=== PATIENT | male | born 1950 | race Caucasian/White ===

== ENCOUNTER 2019-12-25 09:24 | Outpatient (REF) | payer MEDICARE, SELFPAY ==
[2019-12-25 10:47] LABS: Cholesterol 150 mg/dL; HDL Cholesterol 57 mg/dL; LDL Cholesterol Calculated 79 mg/dl; Triglycerides 72 mg/dL
[2019-12-25 10:52] LABS: Alanine Aminotransferase 28 U/L (0-40); Albumin Level 4.1 g/dL (3.5-5.0); Alkaline Phosphatase 49 U/L (39-117); Aspartate Amino Transferase 29 U/L (5-37); Bilirubin Direct 0.3 mg/dL (0.0-0.5); Bilirubin Total 0.5 mg/dL (0.0-1.0); Total Protein 6.5 g/dL (6.5-8.0)
[2019-12-27 04:17] LABS: Ceruloplasmin 29 mg/dL (18-36)
[2019-12-28 23:36] LABS: Smooth Muscle Antibody <20 U (<20)
== END 2019-12-25 09:25 | disposition home or self-care (01) ==
LOC: HO.LAB 09:24
PROVIDERS: Absent Provider Internal Medicine; PCP Internal Medicine; Visit Provider Internal Medicine
DX: R94.5 Abnormal results of liver function studies (principal); I25.10 Atherosclerotic heart disease of native coronary artery without angina pectoris
CPT/HCPCS: 36415; 80061; 80076; 82390; 86255

== ENCOUNTER → 2020-01-02 10:26 | Outpatient (BNVA) | payer MEDICARE, SELFPAY | PROVIDERS: PCP Internal Medicine; Referring Provider Internal Medicine; Visit Provider Internal Medicine | DX: I71.4 Abdominal aortic aneurysm, without rupture (principal); I25.10 Atherosclerotic heart disease of native coronary artery without angina pectoris; I22.9 Subsequent ST elevation (STEMI) myocardial infarction of unspecified site; I10 Essential (primary) hypertension; E78.5 Hyperlipidemia, unspecified; R94.5 Abnormal results of liver function studies; Z95.1 Presence of aortocoronary bypass graft; Z98.890 Other specified postprocedural states; Z79.82 Long term (current) use of aspirin; Z79.899 Other long term (current) drug therapy | CPT/HCPCS: 99212 ==

== ENCOUNTER 2020-02-27 09:13 | Outpatient (REF) | payer MEDICARE, SELFPAY ==
[2020-02-27 10:49] LABS: Alanine Aminotransferase 87 U/L (0-40); Albumin Level 4.1 g/dL (3.5-5.0); Alkaline Phosphatase 50 U/L (39-117); Aspartate Amino Transferase 64 U/L (5-37); Bilirubin Direct 0.3 mg/dL (0.0-0.5); Bilirubin Total 0.6 mg/dL (0.0-1.0); Cholesterol 128 mg/dL; HDL Cholesterol 45 mg/dL; LDL Cholesterol Calculated 69 mg/dl; Total Protein 6.4 g/dL (6.5-8.0); Triglycerides 74 mg/dL
== END 2020-02-27 09:14 | disposition home or self-care (01) ==
LOC: HO.LAB 09:13
PROVIDERS: Absent Provider Internal Medicine; PCP Internal Medicine; Visit Provider Internal Medicine
DX: I25.10 Atherosclerotic heart disease of native coronary artery without angina pectoris (principal); R94.5 Abnormal results of liver function studies
CPT/HCPCS: 80061; 80076

== ENCOUNTER → 2020-03-04 10:23 | Outpatient (BNVA) | payer MEDICARE, SELFPAY | PROVIDERS: PCP Internal Medicine; Visit Provider Internal Medicine | DX: Z13.89 Encounter for screening for other disorder (principal) | CPT/HCPCS: Q3014 ==

== ENCOUNTER 2020-04-26 09:53 | Outpatient (REF) | payer MEDICARE, SELFPAY ==
[2020-04-26 10:50] LABS: Alanine Aminotransferase 21 U/L (0-40); Albumin Level 4.2 g/dL (3.5-5.0); Alkaline Phosphatase 46 U/L (39-117); Aspartate Amino Transferase 24 U/L (5-37); Bilirubin Direct 0.2 mg/dL (0.0-0.5); Bilirubin Total 0.6 mg/dL (0.0-1.0); Cholesterol 153 mg/dL; HDL Cholesterol 48 mg/dL; LDL Cholesterol Calculated 92 mg/dl; Total Protein 6.6 g/dL (6.5-8.0); Triglycerides 69 mg/dL
== END 2020-04-26 09:54 | disposition home or self-care (01) ==
LOC: HO.LAB 09:53
PROVIDERS: Absent Provider Internal Medicine; PCP Internal Medicine; Referring Provider Internal Medicine; Visit Provider Nurse Practitioner Family
DX: E78.5 Hyperlipidemia, unspecified (principal); I25.10 Atherosclerotic heart disease of native coronary artery without angina pectoris
CPT/HCPCS: 36415; 80061; 80076

== ENCOUNTER → 2020-05-06 09:54 | Outpatient (BNVA) | payer MEDICARE, SELFPAY | PROVIDERS: PCP Internal Medicine; Visit Provider Internal Medicine | DX: I25.10 Atherosclerotic heart disease of native coronary artery without angina pectoris (principal); I22.9 Subsequent ST elevation (STEMI) myocardial infarction of unspecified site; I10 Essential (primary) hypertension; E78.5 Hyperlipidemia, unspecified; I71.4 Abdominal aortic aneurysm, without rupture; R94.5 Abnormal results of liver function studies; Z95.1 Presence of aortocoronary bypass graft | CPT/HCPCS: 93005; 99212 ==

== ENCOUNTER 2020-10-17 10:04 | Outpatient (REF) | payer MEDICARE, SELFPAY ==
[2020-10-17 10:07] LABS: MANUAL DIFF FLAG NO
[2020-10-17 10:28] LABS: Basophils Percent Auto 0.7 % (0-2); Eosinophils Absolute Auto 0.2 X10*3/uL (0.0-0.4); Hematocrit 43.7 % (42-52); Hemoglobin 14.8 g/dl (14.0-18.0); Imm Gran Abs Auto 0.02 X10*3/uL (0.00-0.03); Imm Gran Pct Auto 0.4 % (0.0-0.4); Lymphocytes Absolute Auto 1.6 X10*3/uL (1.2-4.9); Lymphocytes Percent Auto 28.7 % (20-40); Mean Corpuscular HGB Conc 33.9 g/dl (31.0-36.0); Mean Corpuscular Hemoglobin 32.5 pg (27.0-33.0); Mean Corpuscular Volume 95.8 fL (80-98); Monocytes Absolute Auto 0.6 X10*3/uL (0.1-1.2); Monocytes Percent Auto 10.1 % (2-11); Neutrophils Absolute Auto 3.2 X10*3/uL (2.0-8.3); Neutrophils Percent Auto 57.1 % (45-73); Platelet Count 181 X10*3/uL (160-400); Red Blood Count 4.56 X10*6/uL (4.60-5.80); Red Cell Distribution Width 12.4 % (11.0-16.0); White Blood Count 5.7 X10*3/uL (4.8-10.8)
[2020-10-17 10:50] LABS: Glucose Urine UA NEG (NEG); Leukocyte Esterase Urine NEG (NEG); Nitrite Urine NEG (NEG); Urine Blood NEG (NEG); Urine Ketones NEG (NEG); Urine Protein NEG (NEG-TRACE)
[2020-10-17 10:53] LABS: Appearance Urine CLEAR; Color Urine YELLOW
[2020-10-17 11:20] LABS: Alanine Aminotransferase 19 U/L (0-40); Albumin Level 4.1 g/dL (3.5-5.0); Alkaline Phosphatase 45 U/L (39-117); Anion Gap 12 (12-20); Aspartate Amino Transferase 23 U/L (5-37); Bilirubin Total 0.5 mg/dL (0.0-1.0); Blood Urea Nitrogen 13 mg/dL (9-16); Calcium 9.2 mg/dL (8.4-10.2); Carbon Dioxide 26 mmol/L (22-29); Chloride 106 mmol/L (96-108); Cholesterol 140 mg/dL; Estimated Glomerular Filt Rate > 60; Glucose Fasting 93 mg/dL (60-99); HDL Cholesterol 49 mg/dL; LDL Cholesterol Calculated 81 mg/dl; Potassium 4.3 mmol/L (3.3-5.1); Sodium 140 mmol/L (135-145); Total Protein 6.4 g/dL (6.5-8.0); Triglycerides 54 mg/dL
[2020-10-17 11:24] LABS: Reflex LDLD? No
[2020-10-17 11:32] LABS: PSA,Total (Free>4and<10) 5.32 ng/mL (0.00-4.00)
[2020-10-18 11:27] LABS: Free Prostate Spec Ag 1.3 ng/mL; Percent Free Prostate Spec Ag 27 % (calc) (>25); Prostate Specific Ag Total 4.8 ng/mL (< OR = 4.0)
== END 2020-10-17 10:05 | disposition home or self-care (01) ==
LOC: HO.LNP 10:04
PROVIDERS: Visit Provider Internal Medicine
DX: E78.00 Pure hypercholesterolemia, unspecified (principal); I71.4 Abdominal aortic aneurysm, without rupture; I25.10 Atherosclerotic heart disease of native coronary artery without angina pectoris; I10 Essential (primary) hypertension; N40.0 Benign prostatic hyperplasia without lower urinary tract symptoms; Z12.5 Encounter for screening for malignant neoplasm of prostate
CPT/HCPCS: 80053; 80061; 81003; 84153; 84154; 85025

== ENCOUNTER → 2020-11-11 10:00 | Outpatient (BNVA) | payer MEDICARE, SELFPAY | PROVIDERS: PCP Internal Medicine; Referring Provider Internal Medicine; Visit Provider Internal Medicine | DX: E78.5 Hyperlipidemia, unspecified (principal); I10 Essential (primary) hypertension; I71.4 Abdominal aortic aneurysm, without rupture; R94.5 Abnormal results of liver function studies | CPT/HCPCS: 99212 ==

== ENCOUNTER 2020-12-05 10:57 | Outpatient (REF) | payer MEDICARE, SELFPAY | END 2020-12-05 10:58 | disposition home or self-care (01) | LOC: HO.LAB 10:57 | PROVIDERS: PCP Internal Medicine; Visit Provider Internal Medicine | DX: Z20.822 Contact with and (suspected) exposure to COVID-19 (principal) | CPT/HCPCS: C9803; U0003; U0005 ==

== ENCOUNTER 2020-12-11 10:16 | Outpatient (REF) | payer MEDICARE, SELFPAY | END 2020-12-11 10:17 | disposition home or self-care (01) | LOC: HO.LAB 10:16 | PROVIDERS: PCP Internal Medicine; Visit Provider Internal Medicine | DX: Z20.822 Contact with and (suspected) exposure to COVID-19 (principal) | CPT/HCPCS: C9803; U0003; U0005 ==

== ENCOUNTER 2021-04-24 11:01 | Outpatient (REF) | payer MEDICARE, SELFPAY ==
[2021-04-24 12:24] LABS: Alanine Aminotransferase 17 U/L (0-40); Albumin Level 3.8 g/dL (3.5-5.0); Alkaline Phosphatase 51 U/L (39-117); Aspartate Amino Transferase 19 U/L (5-37); Bilirubin Direct 0.3 mg/dL (0.0-0.5); Bilirubin Total 0.8 mg/dL (0.0-1.0); Cholesterol 143 mg/dL; HDL Cholesterol 48 mg/dL; LDL Cholesterol Calculated 83 mg/dl; Total Protein 6.2 g/dL (6.5-8.0); Triglycerides 60 mg/dL
[2021-04-24 12:56] LABS: Reflex LDLD? No
== END 2021-04-24 11:02 | disposition home or self-care (01) ==
LOC: HO.LNP 11:01
PROVIDERS: PCP Internal Medicine; Visit Provider Internal Medicine
DX: E78.00 Pure hypercholesterolemia, unspecified (principal)
CPT/HCPCS: 80061; 80076

== ENCOUNTER → 2021-05-19 08:20 | Outpatient (BNVA) | payer MEDICARE, SELFPAY | PROVIDERS: PCP Internal Medicine; Referring Provider Internal Medicine; Visit Provider Internal Medicine | DX: I25.10 Atherosclerotic heart disease of native coronary artery without angina pectoris (principal); I71.4 Abdominal aortic aneurysm, without rupture; I35.0 Nonrheumatic aortic (valve) stenosis; I10 Essential (primary) hypertension; R94.5 Abnormal results of liver function studies; E78.5 Hyperlipidemia, unspecified | CPT/HCPCS: 93005; 99212 ==

== ENCOUNTER → 2021-06-26 09:26 | Outpatient (REF) | payer MEDICARE, SELFPAY ==
--- NOTE | 2021-06-26 09:29 | CA_ITS ---
Transthoracic Echocardiogram Patient (Last, First, Middle): Mario Deng W Gender: Male Date of : 1950 Age: 70 Procedure Date: 06/26/2021 Procedure Type: Transthoracic Echocardiogram Location: OP Height: 167.64 cm Weight: 74.39 kg BSA: 1.84 m2 Heart Rate: bpm BP: 134 / 78 mmHg [place] Department Manager: LEIDY Referring MD: Kurt Wright MD Symptoms: I25.10 - Atherosclerotic heart disease of [place] coronary... Study Quality: Fair ECG Rhythm: Sinus Conclusions: - The left ventricular systolic function is normal. The calculated ejection fraction is 61% by biplane method. - There is moderate calcification of the aortic valve. There is no aortic valve stenosis. Findings Left Ventricle Normal left ventricular cavity size. There is mildly increased left ventricular wall thickness. The left ventricular systolic function is normal. The calculated ejection fraction is 61% by biplane method. Diastolic function is normal for age. Possible mild hypokinesis in the basal inferior wall. Right Ventricle Normal right ventricular cavity size and systolic function. Atria Both atria are normal in size. Aortic Valve There is moderate calcification of the aortic valve. There is no aortic valve stenosis. The mean gradient is 5 mmHg. The aortic valve area is 2.34 cm2. There is no aortic valve regurgitation. Mitral Valve The mitral valve appears normal. There is trace mitral valve regurgitation. There is no mitral valve stenosis. Pulmonic Valve The pulmonic valve was not well visualized. Tricuspid Valve There is mild tricuspid valve regurgitation. The pulmonary artery systolic pressure is normal. Great Vessels The asc aorta and aortic arch are normal in size. Venous The inferior vena cava is normal in size and collapses greater than 50% with inspiration. Pericardium/Pleural There is no evidence of pericardial effusion. Prior Study Comparison No significant change compared to prior study dated: 09/29/2019. Measurements 2D Linear Measurements IVSd: 1.23 0.6-0.9/0.6-1.0 cm LVIDd: 4.11 3.9-5.3/4.2-5.9 cm LVIDd Index: 2.23 2.4-3.2/2.2-3.1 cm/m2 LVIDs: 2.75 2.0-3.6 cm LVPWd: 1.01 0.7-1.1 cm LA Diam: 3.60 2.7-3.8/3.0-4.0 cm LAIDs Index: 1.96 1.5-2.3 cm/m2 LV Mass: 194.09 67-162/88-224 g LV Mass Index: 105.48 43-95/49-115 g/m2 LVOT Diam: 2.00 3.0+(-)1.3 cm 2D Systolic Function EF 4C: 59.90 >55% EF 2C: 61.30 >55% EF BiP: 60.70 >55% Mitral Valve MV Pk E: 0.72 MV PK A: 0.68 MV Decel Time: 177.00 E/A: 1.10 E'Lateral: 10.00 E'Medial: 6.09 E/E' Med: 11.90 E/E' Lat: 7.20 PHT: 52.00 MVA PHT: 4.23 Decel Terry: 4.08 Aortic Valve AoV Pk [place]: 1.69 AoV Mn [place]: 1.04 AoV VTI: 0.37 AoV Pk Grad: 11.00 Aov Mn Grad: 5.00 DEONNA Cont.VTI: 2.34 LVOT LVOT Pk [place]: 1.29 LVOT Mn [place]akan: 0.75 LVOT VTI: 0.28 LVOT Pk Grad: 7.00 LVOT Mn Grad: 3.00 LVOT Diam: 2.00 LVOT Area: 3.14 Diastolic Function MV Pk E: 0.72 MV Pk A: 0.68 E/A: 1.10 E'Medial: 6.09 E/E' Med: 11.90 E' Laterial: 10.00 E/E' Lat: 7.20 Right Ventricle TAPSE (mm): 22.60 TVS' Hakan: 11.30 Tricuspid Valve TR Pk [place]akan: 2.21 TR Pk Grad: 20.00 RA Press: 3.00 RVSP: 23.00 Great Vessels Aorta Sinus of Valsalva: 3.04 2.0-3.[address] [place]: 2.41 1.7-3.4 cm Ao Asc: 3.50 2.1-3.4 cm Ao Arch: 3.00 Updated in Other Vendor System with Status of Final Kurt Wright MD electronically signed on 06/27/2021 4:16:49 PM with status of Final
== END ==
LOC: HO.CARD 09:26
PROVIDERS: PCP Internal Medicine; Visit Provider Internal Medicine
DX: I25.10 Atherosclerotic heart disease of native coronary artery without angina pectoris (principal); I35.0 Nonrheumatic aortic (valve) stenosis
CPT/HCPCS: 93306

== ENCOUNTER 2021-09-08 13:51 | Outpatient (REF) | payer MEDICARE, SELFPAY ==
--- NOTE | ~2021-09-08 | XR_ITS ---
EXAMINATION: 1. RIGHT ANKLE. 2. RIGHT FOOT. CLINICAL INFORMATION: Pain in foot and ankle. COMPARISON: None TECHNIQUE: 1. Right ankle. 3 views 2. Right foot. 3 views FINDINGS: 1. Right ankle. No fracture. No dislocation. Ankle mortise is congruent. Small surgical clips in the soft tissues of the distal leg the medial side of the metadiaphysis of the tibia. 2. Right foot. Severe degenerative arthropathy of the first metatarsal phalangeal joint. There is joint narrowing, [id number] contact with irregularity the articular surface of bone and large marginal bone spurs at both the metatarsal and the proximal phalange. Mild joint narrowing of the first and second metatarsal tarsal joint. No acute abnormality. XR/XR ankle RT min 3V IMPRESSION: 1. Right ankle. Normal right ankle. 2. Right foot. Degenerative arthropathy of the first and second toe. No acute abnormality.
--- NOTE | ~2021-09-08 | XR_ITS ---
EXAMINATION: 1. RIGHT ANKLE. 2. RIGHT FOOT. CLINICAL INFORMATION: Pain in foot and ankle. COMPARISON: None TECHNIQUE: 1. Right ankle. 3 views 2. Right foot. 3 views FINDINGS: 1. Right ankle. No fracture. No dislocation. Ankle mortise is congruent. Small surgical clips in the soft tissues of the distal leg the medial side of the metadiaphysis of the tibia. 2. Right foot. Severe degenerative arthropathy of the first metatarsal phalangeal joint. There is joint narrowing, [id number] contact with irregularity the articular surface of bone and large marginal bone spurs at both the metatarsal and the proximal phalange. Mild joint narrowing of the first and second metatarsal tarsal joint. No acute abnormality. XR/XR foot RT min 3V IMPRESSION: 1. Right ankle. Normal right ankle. 2. Right foot. Degenerative arthropathy of the first and second toe. No acute abnormality.
== END 2021-09-08 13:52 | disposition home or self-care (01) ==
LOC: HO.XRAY 13:51
PROVIDERS: PCP Internal Medicine; Visit Provider Internal Medicine
DX: R29.91 Unspecified symptoms and signs involving the musculoskeletal system (principal); M25.571 Pain in right ankle and joints of right foot; M79.671 Pain in right foot
CPT/HCPCS: 73610; 73630

== ENCOUNTER 2021-10-23 10:49 | Outpatient (REF) | payer MEDICARE, SELFPAY ==
[2021-10-23 10:52] LABS: MANUAL DIFF FLAG NO
[2021-10-23 11:09] LABS: Basophils Percent Auto 0.5 % (0-2); Eosinophils Absolute Auto 0.2 X10*3/uL (0.0-0.4); Eosinophils Percent Auto 2.7 % (0-4); Hematocrit 43.8 % (42.0-52.0); Hemoglobin 14.9 g/dl (14.0-18.0); Imm Gran Abs Auto 0.03 X10*3/uL (0.00-0.03); Imm Gran Pct Auto 0.5 % (0.0-0.4); Lymphocytes Absolute Auto 1.8 X10*3/uL (1.2-4.9); Lymphocytes Percent Auto 29.8 % (20-40); Mean Corpuscular Hemoglobin 32.3 pg (27.0-33.0); Mean Corpuscular Volume 94.8 fL (80.0-98.0); Mean Platelet Volume 10.6 fL (9.4-12.4); Monocytes Absolute Auto 0.6 X10*3/uL (0.1-1.2); Monocytes Percent Auto 9.8 % (2-11); Neutrophils Absolute Auto 3.4 x10*3/uL (2.0-8.3); Neutrophils Percent Auto 56.7 % (45-73); Platelet Count 216 X10*3/uL (160-400); Red Blood Count 4.62 X10*6/uL (4.60-5.80); Red Cell Distribution Width 12.7 % (11.0-16.0); White Blood Count 5.9 X10*3/uL (4.8-10.8)
[2021-10-23 11:26] LABS: Alanine Aminotransferase 21 U/L (0-40); Alkaline Phosphatase 52 U/L (39-117); Anion Gap 14 (12-20); Aspartate Amino Transferase 22 U/L (5-37); Bilirubin Total 0.8 mg/dL (0.0-1.0); Blood Urea Nitrogen 13 mg/dL (9-16); Calcium 8.8 mg/dL (8.4-10.2); Carbon Dioxide 25 mmol/L (22-29); Chloride 105 mmol/L (96-108); Cholesterol 147 mg/dL; Estimated Glomerular Filt Rate > 60; Glucose Fasting 113 mg/dL (60-99); HDL Cholesterol 53 mg/dL; LDL Cholesterol Calculated 83 mg/dl; Potassium 3.9 mmol/L (3.3-5.1); Sodium 140 mmol/L (135-145); Total Protein 6.4 g/dL (6.5-8.0); Triglycerides 59 mg/dL
[2021-10-23 11:34] LABS: Appearance Urine Clear; Color Urine Yellow; Glucose Urine UA Negative (Negative); Leukocyte Esterase Urine Negative (Negative); Nitrite Urine Negative (Negative); PH 6.5 (5.0-8.0); Urine Blood Negative (Negative); Urine Ketones Negative (Negative); Urine Protein Negative (Neg-Trace)
[2021-10-23 11:40] LABS: PSA,Total (Free>4and<10) 3.59 ng/mL (0.00-4.00)
[2021-10-23 11:42] LABS: Bacteria Urine None Seen (None Seen); Hyaline Casts Urine 0-2 /LPF (0-2); RBC Urine 0-2 /HPF (0-2); Squamous Epithelial Cell Urine 0-2 /HPF (0-2); WBC Urine 0-5 /HPF (0-5)
== END 2021-10-23 10:50 | disposition home or self-care (01) ==
LOC: HO.LNP 10:49
PROVIDERS: Visit Provider Internal Medicine
DX: Z12.5 Encounter for screening for malignant neoplasm of prostate (principal); E78.00 Pure hypercholesterolemia, unspecified; I10 Essential (primary) hypertension; N40.0 Benign prostatic hyperplasia without lower urinary tract symptoms
CPT/HCPCS: 80053; 80061; 81001; 84153; 85025

== ENCOUNTER → 2021-11-10 08:25 | Outpatient (BNVA) | payer MEDICARE, SELFPAY | PROVIDERS: PCP Internal Medicine; Referring Provider Internal Medicine; Visit Provider Internal Medicine | DX: I25.10 Atherosclerotic heart disease of native coronary artery without angina pectoris (principal); I35.8 Other nonrheumatic aortic valve disorders; I10 Essential (primary) hypertension; E78.5 Hyperlipidemia, unspecified; I71.4 Abdominal aortic aneurysm, without rupture; R94.5 Abnormal results of liver function studies | CPT/HCPCS: 99212 ==

== ENCOUNTER 2022-01-26 11:22 | Outpatient (REF) | payer MEDICARE, SELFPAY ==
[2022-01-26 15:01] LABS: Influenza A PCR NEGATIVE (Negative); Influenza B PCR NEGATIVE (Negative); Resp Syncy Virus RNA Qual PCR POSITIVE (Negative); SARS COV2 PCR INHOUSE NEGATIVE (Negative)
== END 2022-01-26 11:23 | disposition home or self-care (01) ==
LOC: HO.LAB 11:22
PROVIDERS: Visit Provider Internal Medicine
DX: R43.9 Unspecified disturbances of smell and taste (principal); Z20.822 Contact with and (suspected) exposure to COVID-19
CPT/HCPCS: 0241U

== ENCOUNTER 2022-03-18 18:21 | Emergency (ER) | payer MEDICARE, SELFPAY ==
[2022-03-18 18:25] VITALS: BP 161/86; PULSE 64; RESP 18; TEMP 36.6; O2SAT 98; BMI 25.8
--- NOTE | 2022-03-18 18:37 | ED.EPISTAXIS ---
History of Present Illness General Chief Complaint: General Medical Stated Complaint: bloody nose, blood thinners Time Seen by Provider: 03/18/22 18:30 Source: patient and family ( at bedside) Mode of arrival: ambulatory Limitations: no limitations History of Present Illness HPI Narrative: 71yoM c PMHx of aortic valve sclerosis, nonrheumatic aortic stenosis, abdominal aortic aneurysm, hyperlipidemia, hypertension, NM with CAD who is status post coronary artery bypass currently on Plavix reports he last took last night presenting to the ER with complaints of epistaxis to the left Nare that started prior to arrival when he was bending over at home. Reports that last night he did shave his nasal hairs with his electric shaver although that was yesterday. And then today he did have some congestion therefore he was blowing his nose. Otherwise denies any falls, headaches, dizziness, change in vision, chest pain or shortness of breath or any other symptoms complaints or concerns at this time. 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) Duration: Yes constant Pertinent past history: Yes hypertension Context: Yes other anticoagulant use (Plavix) Associated symptoms: Yes nasal congestion Treatment prior to arrival: Yes nose pinching, Yes head leaning forward, Yes stuff nose with tissue and Yes ice Related Data Home Medications Medication Instructions Recorded Confirmed aspirin 81 mg tablet,delayed 81 mg PO DAILY 01/02/20 11/10/21 release tamsulosin 0.4 mg capsule 0.4 mg PO BID 11/10/21 11/10/21 Previous Rx's Medication Instructions Recorded clopidogrel 75 mg tablet (Plavix) 75 mg PO DAILY 90 days #90 tabs 05/05/21 amlodipine 10 mg tablet 10 mg PO DAILY #90 tabs 05/19/21 metoprolol succinate 25 mg 25 mg PO DAILY #90 tabs 09/03/21 tablet,extended release 24 hr atorvastatin 80 mg tablet 80 mg PO QPM #90 tabs 12/24/21 Allergies Allergy/AdvReac Type Severity Reaction Status Date / Time No Known Allergies Allergy Verified 01/26/22 10:17 [No Known Allergies*] Review of Systems Review of Systems: Constitutional : No Fever, No Chills ENT/Mouth : No Ear Pain, No Nasal Congestion, positive nose bleed Eyes: No Eye Pain, No Swelling, No Redness Cardiovascular : No Chest Pain, No SOB Respiratory : No Cough, No Sputum Gastrointestinal : No Nausea, No Vomiting, No Diarrhea Genitourinary : No Dysuria, No Hematuria Musculoskeletal : No joint pain, No Myalgias Skin : No Skin Lesions, No rash Neuro : No Weakness, No Numbness, No headache Psych : No Anxiety/Panic, No Depression Heme/Lymph: No Bleeding,No Lymphadenopathy Endocrine : No Polyuria, No Polydipsia Yes all other systems are reviewed and are negative [facility] Past Medical History Attestation statement: The following information was validated with the patient. Source: old records reviewed, obtained from family and nursing notes reviewed Medical History Abdominal aortic aneurysm Abnormal LFTs Atherosclerotic cardiovascular disease Essential hypertension Hyperlipidemia, unspecified Subsequent ST elevation (STEMI) myocardial infarction Surgical History History of cardiac catheterization History of coronary artery bypass graft (~2002) Status post aorto-coronary artery bypass graft Family History Family History Father Myocardial infarction Stroke Mother No problems noted. Social History Social History Patient Tobacco Use Status: Never used Tobacco Advance Directives: No Advance Directives Information Provided: No Physical Exam Vital Signs: Vital Signs: Last Vital Signs Temp 97.8 F 03/18/22 18:25 Pulse 64 03/18/22 18:25 Resp 18 03/18/22 18:25 BP 161/86 H 03/18/22 18:25 Pulse Ox 98 03/18/22 18:25 O2 Del Method 03/18/22 18:25 BMI result Body Mass Index 25.8 Vital signs reviewed. Blood pressure normal. Pulse normal. Respiration normal. Oxygen normal. Temperature normal. Appearance: Alert. Oriented X3. No acute distress. Head: Normal external exam. Normocephalic. Atraumatic. Eyes: PERRLA. EOMI. Conjunctiva and sclera normal. Eyelids normal. ENT: Pharynx normal. Uvula midline. Moist mucous membranes. To the left Nare patient has a superficial abrasion most likely from the razor that he was using. No foreign bodies are noted. No septal hematoma noted. No additional lesions or ulcerations noted. No lesions/ulcerations or masses noted on the tongue. Normal voice. No trismus noted. No drooling noted. No muffled voice noted. Neck: Normal inspection. Neck supple. FROM. No adenopathy. Thyroid Normal. No meningeal signs. CVS: Normal heart rate and rhythm. Heart sound normal. Pulses normal throughout. No murmurs/rales/gallops. Respiratory: No respiratory distress. Painless inspiration. Breath sounds normal. No wheezes/rales/rhonchi noted. Chest nontender. No accessory muscle usage noted or decreased air movement noted. Abdomen: Soft and nontender. Back: Full range of motion noted. Nontender. Skin: Skin warm and dry. Normal skin color. Normal skin turgor. No rashes/lesions/lacerations noted. Extremities: Extremities exhibit normal range of motion and nontender. Neuro: Oriented X 3. No motor deficit. No sensory deficit. Reflexes normal. Normal steady gait. No focal neuro deficits noted. CN's II-XII intact bilaterally? Vascular: + radial pulses. Normal cap refill. No cyanosis noted to upper extremity nails Course Course Course Narrative: Patient had a superficial abrasion to the left Nare anterior aspect therefore I applied silver nitrate. Monitor the patient for at least 30 minutes and the bleeding is controlled. I explained to the patient that he should not take his Plavix tonight can take it tomorrow and not to blow his nose or do not put anything in his nose for at least 3-5 days. Lung instructions return if any new or worsening symptoms. Patient with at bedside understand agree this plan. Medications Administered Discontinued Medications Generic Name Dose Route Start Last Admin Trade Name Paty PRN Reason Stop Dose Admin Silver Nitrate 2 appl 03/18/22 18:30 03/18/22 18:40 Silver Nitrate Applicator Stick..Ea. TOPICAL 03/18/22 18:31 2 appl ONCE ONE Administration Discharge Plan Discharge Clinical Impression: Acute anterior epistaxis Patient Disposition: Home, Self-Care Instructions: Nosebleed (ED) Prescriptions: No Action clopidogrel [Plavix] 75 mg tablet 75 mg PO DAILY 90 Days Qty: 90 3RF metoprolol succinate 25 mg tablet extended release 24 hr 25 mg PO DAILY Qty: 90 3RF atorvastatin 80 mg tablet 80 mg PO QPM Qty: 90 3RF aspirin 81 mg tablet,delayed release (DR/EC) 81 mg PO DAILY amlodipine 10 mg tablet 10 mg PO DAILY Qty: 90 3RF tamsulosin 0.4 mg capsule 0.4 mg PO BID Referrals: Parth Hinojosa MD [Primary Care Provider] - 2 days
[2022-03-18] MEDS: Silver Nitrate Applicator STICK..EA. 2 APPL TOPICAL (18:40)
--- NOTE | 2022-03-18 18:55 | PC.NURSE ---
rounded on patient, no active bleeding from nostrils WCTM
== END 2022-03-18 19:11 | disposition home or self-care (01) ==
PROVIDERS: Emergency Provider Emergency Medicine Emergency Medical Services; PCP Internal Medicine
DX: R04.0 Epistaxis (principal); I10 Essential (primary) hypertension; E78.5 Hyperlipidemia, unspecified; Z95.1 Presence of aortocoronary bypass graft; Z79.01 Long term (current) use of anticoagulants; Z79.82 Long term (current) use of aspirin; Z79.899 Other long term (current) drug therapy; Z79.02 Long term (current) use of antithrombotics/antiplatelets
CPT/HCPCS: 30901; 99282; 99283

== ENCOUNTER 2022-04-10 13:41 | Outpatient (REF) | payer MEDICARE, SELFPAY ==
--- NOTE | ~2022-04-10 | CT_ITS ---
EXAMINATION: CT CHEST SCREENING CLINICAL INFORMATION: Current smoker. 54 pack year history. COMPARISON: Previous chest CTA May 2019 TECHNIQUE: Multidetector volumetric CT imaging of the chest is performed without contrast using low dose technique. Additional 2D coronal and sagittal reformatted images and axial 3D maximum intensity projection (MIP) images are generated on the CT workstation. This CT examination was performed using dose optimization techniques as appropriate, variously including the following: *Automated exposure control *Adjustment of mA and/or kV according to patient size (this includes techniques or standardized protocols for targeted exams where dose is matched to indication/reason for exam; i.e. extremities or head) *Use of iterative reconstruction technique DLP: 54 mGy-cm FINDINGS: LUNGS: 2 mm right apical nodule axial image 50 series 5. 3 mm right upper lobe nodule axial image 181 series 5. 3 mm calcified right lower lobe nodule axial image 363 series 5. These are similar to previous chest CTA. Mild emphysema. No endobronchial or endotracheal lesion. MEDIASTINUM: Post-CABG changes. No pericardial effusion. Normal heart size. Aortic valve calcification. Normal caliber thoracic aorta. No enlarged hilar or mediastinal lymph nodes. Small esophageal hernia. CORONARY ARTERY CALCIFICATION: Post-CABG changes. PLEURA: There is no pleural effusion. No pleural mass or thickening. AXILLA: No lymphadenopathy. UPPER ABDOMEN: Small low-attenuation liver lesions probably representing cysts. Largest measures 1.5 cm high in the dome of the liver. These are stable from prior exam. OSSEOUS STRUCTURES: Degenerative changes of the spine. Median sternotomy wires. CT/CT lung screening IMPRESSION: Mild emphysema. Small pulmonary nodules, largest measuring 3 mm. These are stable from previous chest CTA May 2019. ASSESSMENT: Lung-RADS category 2: Benign RECOMMENDATION: Annual low-dose chest CT follow-up recommended.
== END 2022-04-10 13:42 | disposition home or self-care (01) ==
LOC: HO.CT 13:41
PROVIDERS: PCP Internal Medicine; Visit Provider Physician Assistant Medical
DX: Z87.891 Personal history of nicotine dependence (principal)
CPT/HCPCS: 71271; G0296

== ENCOUNTER 2022-04-13 08:31 | Emergency (ER) | payer MEDICARE, SELFPAY ==
[2022-04-13 08:32] VITALS: BP 148/80; PULSE 59; RESP 22; TEMP 36.6; O2SAT 98; BMI 26.8
--- NOTE | 2022-04-13 08:49 | PC.NURSE ---
Patient AOx 4 neuros intact presents to ED for epitaxis, on plavix for stent placement and clotting disorder. AOx 4 complaint of swallowing blood. MD at baseline admin TXA afrin and using silver nitrate to cauterize bleeding. Will CTM
[2022-04-13] MEDS: Oxymetazoline HCl 0.05 % Nasal 15 ML SPRAY 2 SPRAY NOSTRIL-B (08:52)
[2022-04-13] MEDS: Tranexamic Acid 1,000 MG/10 ML VIAL 500 MG INTRANASAL (08:53)
[2022-04-13] MEDS: Silver Nitrate Applicator STICK..EA. 1 APPL TOPICAL (08:53)
--- NOTE | 2022-04-13 08:54 | ED_ITS ---
History of Present Illness General Chief Complaint: Epistaxis Stated Complaint: nose bleed on blood thinners Time Seen by Provider: 04/13/22 08:39 Source: patient and family Mode of arrival: ambulatory Limitations: no limitations History of Present Illness HPI Narrative: 71 yo male with hx of CAD, aortic stenosis, HTN, HLD, on plavix with hx of intermittent nose bleeds started with bleed out of L nare 10 minutes prior to arrival. No trauma to the nose, applied pressure it did improve. No other bleeding at other sites. Location: Yes left naris Onset/current episode: Yes minute(s) (10) Duration: Yes constant Pertinent past history: Yes history of previous nose bleed Context: Yes history of previous nose bleed Treatment prior to arrival: Yes nose pinching Related Data Home Medications Medication Instructions Recorded Confirmed aspirin 81 mg tablet,delayed 81 mg PO DAILY 01/02/20 11/10/21 release tamsulosin 0.4 mg capsule 0.4 mg PO BID 11/10/21 11/10/21 Previous Rx's Medication Instructions Recorded clopidogrel 75 mg tablet (Plavix) 75 mg PO DAILY 90 days #90 tabs 05/05/21 amlodipine 10 mg tablet 10 mg PO DAILY #90 tabs 05/19/21 metoprolol succinate 25 mg 25 mg PO DAILY #90 tabs 09/03/21 tablet,extended release 24 hr atorvastatin 80 mg tablet 80 mg PO QPM #90 tabs 12/24/21 Allergies Allergy/AdvReac Type Severity Reaction Status Date / Time No Known Allergies Allergy Verified 04/13/22 08:36 [No Known Allergies*] Review of Systems Review of Systems: Constitutional : No Fever, No Chills ENT/Mouth : No Ear Pain, No Nasal Congestion, positive nose bleed Eyes: No Eye Pain, No Swelling, No Redness Cardiovascular : No Chest Pain, No SOB Respiratory : No Cough, No Sputum Gastrointestinal : No Nausea, No Vomiting, No Diarrhea Genitourinary : No Dysuria, No Hematuria Musculoskeletal : No joint pain, No Myalgias Skin : No Skin Lesions, No rash Neuro : No Weakness, No Numbness, No headache Psych : No Anxiety/Panic, No Depression Heme/Lymph: positive Bleeding,No Lymphadenopathy Endocrine : No Polyuria, No Polydipsia PMFSH Past Medical History Attestation statement: The following information was validated with the patient. Medical History Abnormal LFTs Atherosclerotic cardiovascular disease CAD (coronary artery disease) Essential hypertension History of SC (myocardial infarction) Hyperlipidemia, unspecified Personal history of nicotine dependence Subsequent ST elevation (STEMI) myocardial infarction Surgical History History of AAA (abdominal aortic aneurysm) repair (~2019) History of colonoscopy History of coronary artery bypass graft (~2002) History of endoscopy History of heart artery stent History of tonsillectomy Family History Family History Father Myocardial infarction Stroke Mother No problems noted. Social History Social History Alcohol intake: unknown Patient Tobacco Use Status: Former Tobacco user Quit Date: 09/14/2011 Years Smoked: (former smoker - onset 15yo, 1-1.5ppd x 46yrs, 50pyh - quit 09/14/2011) Use of substances other than those prescribed or required for medical reasons: No Advance Directives: Yes Advance Directives Information Provided: No Advance Directives on File: No Physical Exam Vital Signs: Vital Signs: Last Vital Signs Temp 97.9 F 04/13/22 08:32 Pulse 59 04/13/22 08:32 Resp 22 H 04/13/22 08:32 BP 148/80 H 04/13/22 08:32 Pulse Ox 98 04/13/22 08:32 O2 Del Method 04/13/22 08:32 BMI result Body Mass Index 26.8 Appearance: Alert. Oriented X3. No acute distress. Eyes: Pupils equal, round and reactive to light. ENT: Pharynx normal. L nares trickle of blood noted Neck: Normal inspection. Neck supple. CVS: Normal heart rate and rhythm. Pulses normal. Respiratory: No respiratory distress. Breath sounds normal. Abdomen: Soft and nontender. Skin: Skin warm and dry. Normal skin color. Normal skin turgor. Extremities: No lower extremity edema. No calf ttp Neuro: Oriented X 3. No motor deficit. No sensory deficit. Medications Administered Discontinued Medications Generic Name Dose Route Start Last Admin Trade Name Freq PRN Reason Stop Dose Admin Oxymetazoline HCl 2 spray 04/13/22 08:41 04/13/22 08:52 Oxymetazoline Hcl 0.05 % Nasal 15 Ml [place] NOSTRIL-B 04/13/22 08:42 1 spray ONCE ONE Administration Silver Nitrate 1 appl 04/13/22 08:41 04/13/22 08:53 Silver Nitrate Applicator Stick..Ea. TOPICAL 04/13/22 08:42 1 appl ONCE ONE Administration Tranexamic Acid 500 mg 04/13/22 08:41 04/13/22 08:53 Tranexamic Acid 1,000 Mg/10 Ml Vial INTRANASAL 04/13/22 08:42 500 mg ONCE ONE Administration Medical Decision Making Medical Decision Making MDM Narrative: 71 yo male with hx of CAD, aortic stenosis, HTN, HLD, on plavix with hx of intermittent nose bleeds here with mild L nares bleed - at this time will apply local measures and use afrin/tranexamic acid and likely silver nitrate attempt cautery before packing. He will need ENT follow up. He has HD stable VS. Differential Diagnosis Differential Diagnoses: The differential diagnosis associated with the presentation includes anterior/posterior bleed Independent Historian Clinical information obtained from an independent historian. History obtained from or confirmed by: Spouse External Record Review External record reviewed: Inpatient record Procedures Epistaxis Control Time Out Performed: Yes Nostril: Yes left Nose prepped with: Yes oxymetazoline Direct inspection: Yes anterior source identified Direct inspection method: Yes nasal rhinoscope Clots removed by: Yes manually Epistaxis treatment: Yes silver nitrate cautery Results of treatment: Yes bleeding controlled Complications: Yes none Discharge Plan Discharge Clinical Impression: Acute anterior epistaxis Patient Disposition: Home, Self-Care Instructions: Nosebleed (ED) Additional Instructions: return to ED for any worsening symptoms or concerns apply pressure to nose for bleeding hold 10 minute use balloon sponges given to you. return for dizziness, shortness of breath use saline spray twice a day and a humidifier please apply vaseline inside of nose gently for 3 days twice a day, no nose blowing or nose picking for 5 days Prescriptions: No Action clopidogrel [Plavix] 75 mg tablet 75 mg PO DAILY 90 Days Qty: 90 3RF metoprolol succinate 25 mg tablet extended release 24 hr 25 mg PO DAILY Qty: 90 3RF atorvastatin 80 mg tablet 80 mg PO QPM Qty: 90 3RF aspirin 81 mg tablet,delayed release (DR/EC) 81 mg PO DAILY amlodipine 10 mg tablet 10 mg PO DAILY Qty: 90 3RF tamsulosin 0.4 mg capsule 0.4 mg PO BID Referrals: Milan Marquez [Physician] - 2 weeks Interventions: ED Discharge Assessment Last Done: 04/13/22 09:34 Discharge Date/Time: 04/13/22 09:35
--- NOTE | 2022-04-13 09:12 | PC.NURSE ---
Doctor at bedside bleeding controlled will CTM
== END 2022-04-13 09:35 | disposition home or self-care (01) ==
PROVIDERS: Emergency Provider Emergency Medicine; PCP Internal Medicine
DX: R04.0 Epistaxis (principal); I10 Essential (primary) hypertension; E78.5 Hyperlipidemia, unspecified; Z87.891 Personal history of nicotine dependence; Z79.02 Long term (current) use of antithrombotics/antiplatelets; Z79.82 Long term (current) use of aspirin
CPT/HCPCS: 30901; 99283; 99284

== ENCOUNTER 2022-04-30 10:50 | Outpatient (REF) | payer MEDICARE, SELFPAY ==
[2022-04-30 11:28] LABS: Alanine Aminotransferase 25 U/L (0-40); Albumin Level 3.9 g/dL (3.5-5.0); Alkaline Phosphatase 57 U/L (39-117); Aspartate Amino Transferase 24 U/L (5-37); Bilirubin Direct < 0.2 mg/dL (0.0-0.5); Bilirubin Total 0.5 mg/dL (0.0-1.0); Cholesterol 132 mg/dL; HDL Cholesterol 41 mg/dL; LDL Cholesterol Calculated 80 mg/dl; Triglycerides 56 mg/dL
[2022-04-30 14:50] LABS: Reflex LDLD? No
== END 2022-04-30 10:51 | disposition home or self-care (01) ==
LOC: HO.LNP 10:50
PROVIDERS: Visit Provider Internal Medicine
DX: E78.00 Pure hypercholesterolemia, unspecified (principal)
CPT/HCPCS: 80061; 80076

== ENCOUNTER 2022-05-07 13:44 | Outpatient (REF) | payer MEDICARE, SELFPAY ==
--- NOTE | ~2022-05-07 | XR_ITS ---
EXAMINATION: XR CHEST CLINICAL INFORMATION: Phlegm in throat. 54 pack year smoking history. COMPARISON: Chest radiographs 06/13/2019, 03/26/2016, CT lung screening 04/10/2022. TECHNIQUE: 2 views of the chest were obtained. FINDINGS: The lungs are clear. There is no airspace consolidation or groundglass opacity or effusion. Heart size normal. Vascularity normal. There are postsurgical changes again noted. No acute bony abnormality. XR/XR chest 2V IMPRESSION: Lungs clear. No acute intrathoracic disease.
== END 2022-05-07 13:45 | disposition home or self-care (01) ==
LOC: HO.XRAY 13:44
PROVIDERS: PCP Internal Medicine; Visit Provider Internal Medicine
DX: R09.89 Other specified symptoms and signs involving the circulatory and respiratory systems (principal)
CPT/HCPCS: 71046

== ENCOUNTER 2022-05-30 03:53 | Emergency (ER) | payer MEDICARE, SELFPAY ==
[2022-05-30 04:01] VITALS: BP 112/79; PULSE 70; RESP 16; TEMP 36.6; O2SAT 96; BMI 26.1
[2022-05-30 04:13] LABS: Basophils Percent Auto 0.5 % (0-2); Eosinophils Absolute Auto 0.3 X10*3/uL (0.0-0.4); Eosinophils Percent Auto 4.9 % (0-4); Hematocrit 39.2 % (42.0-52.0); Hemoglobin 13.5 g/dl (14.0-18.0); Imm Gran Abs Auto 0.02 X10*3/uL (0.00-0.03); Imm Gran Pct Auto 0.4 % (0.0-0.4); Lymphocytes Percent Auto 35.6 % (20-40); MANUAL DIFF FLAG NO; Mean Corpuscular HGB Conc 34.4 g/dl (31.0-36.0); Mean Corpuscular Hemoglobin 32.1 pg (27.0-33.0); Mean Corpuscular Volume 93.1 fL (80.0-98.0); Mean Platelet Volume 9.8 fL (9.4-12.4); Monocytes Absolute Auto 0.5 X10*3/uL (0.1-1.2); Monocytes Percent Auto 8.5 % (2-11); Neutrophils Absolute Auto 2.8 x10*3/uL (2.0-8.3); Neutrophils Percent Auto 50.1 % (45-73); Platelet Count 243 X10*3/uL (160-400); Red Blood Count 4.21 X10*6/uL (4.60-5.80); Red Cell Distribution Width 12.3 % (11.0-16.0); White Blood Count 5.5 X10*3/uL (4.8-10.8)
[2022-05-30 04:27] LABS: INTERNATIONAL NORM RATIO 0.9 (0.9-1.1); Prothrombin Time 10.8 SEC (10.0-13.1)
[2022-05-30 04:30] LABS: Partial Thromboplastin Time 26.8 SEC (26.0-36.4)
[2022-05-30 04:31] LABS: Alanine Aminotransferase 15 U/L (0-40); Albumin Level 3.6 g/dL (3.5-5.0); Alkaline Phosphatase 60 U/L (39-117); Anion Gap 12 (12-20); Aspartate Amino Transferase 17 U/L (5-37); Bilirubin Total 0.2 mg/dL (0.0-1.0); Blood Urea Nitrogen 13 mg/dL (9-16); Calcium 8.5 mg/dL (8.4-10.2); Carbon Dioxide 23 mmol/L (22-29); Chloride 110 mmol/L (96-108); Creatinine Clr Calc Pharmacy 77.5; Estimated Glomerular Filt Rate > 60; Glucose Random 95 mg/dL (60-115); Potassium 4.3 mmol/L (3.3-5.1); Sodium 141 mmol/L (135-145); Total Protein 5.7 g/dL (6.5-8.0)
--- NOTE | 2022-05-30 04:46 | ED.EPISTAXIS ---
History of Present Illness General Chief Complaint: Epistaxis Stated Complaint: Nose bleed/ On Blood Thinner Time Seen by Provider: 05/30/22 04:08 Source: patient and family (Spouse) Mode of arrival: ambulatory Limitations: no limitations History of Present Illness HPI Narrative: 71-year-old male on Plavix came in for evaluation of left nostril bleed. No trauma to the nose, patient did not use the humidifier at home yesterday and forgot to use normal saline to moisture is nostril last night woke up with bleeding from the left side. Patient has been evaluated for epistaxis in the ED twice. Patient declined any dizziness, CP, SOB. Related Data Home Medications Medication Instructions Recorded Confirmed aspirin 81 mg tablet,delayed 81 mg PO DAILY 01/02/20 11/10/21 release tamsulosin 0.4 mg capsule 0.4 mg PO BID 11/10/21 11/10/21 Previous Rx's Medication Instructions Recorded amlodipine 10 mg tablet 10 mg PO DAILY #90 tabs 05/19/21 metoprolol succinate 25 mg 25 mg PO DAILY #90 tabs 09/03/21 tablet,extended release 24 hr atorvastatin 80 mg tablet 80 mg PO QPM #90 tabs 12/24/21 clopidogrel 75 mg tablet (Plavix) 75 mg PO DAILY 90 days #90 tabs 04/21/22 Allergies Allergy/AdvReac Type Severity Reaction Status Date / Time No Known Allergies Allergy Verified 04/13/22 08:36 [No Known Allergies*] Review of Systems Review of Systems: All other systems are reviewed and are negative Constitutional: Reports as per HPI and Reports no additional constitutional complaints Eyes: Reports as per HPI and Reports no additional eye complaints Reports system reviewed and no additional complaints, except as documented Cardiovascular: Reports as per HPI and Reports no additional cardiovascular complaints Respiratory: Reports as per HPI and Reports no additional respiratory complaints Gastrointestinal: Reports as per HPI and Reports no additional gastrointestinal complaints Genitourinary: Reports no additional female genitourinary complaints Musculoskeletal: Reports no additional musculoskeletal complaints Skin/Breast: Reports system reviewed and no additional complaints, except as docu Psychiatric: Reports no additional psychiatric complaints Endocrine: Reports no additional endocrine complaints Hematologic/Lymphatic: Reports no additional hematologic/lymphatic complaints Allergic/Immunologic: Reports no additional allergic/immunologic complaints Reports system reviewed and no additional complaints, except as documented and Reports Abnormal speech present [facility] Past Medical History Medical History Abnormal LFTs Atherosclerotic cardiovascular disease CAD (coronary artery disease) Essential hypertension History of [place] (myocardial infarction) Hyperlipidemia, unspecified Personal history of nicotine dependence Subsequent ST elevation (STEMI) myocardial infarction Surgical History History of AAA (abdominal aortic aneurysm) repair (~2018) History of colonoscopy History of coronary artery bypass graft (~2002) History of endoscopy History of heart artery stent History of tonsillectomy Family History Family History Father Myocardial infarction Stroke Mother No problems noted. Social History Social History Alcohol intake: unknown Patient Tobacco Use Status: Former Tobacco user Quit Date: 09/14/2011 Years Smoked: (former smoker - onset 15yo, 1-1.5ppd x 46yrs, 50pyh - quit 09/14/2011) Advance Directives: Yes Advance Directives Information Provided: Yes Advance Directives on File: No Physical Exam Vital Signs: Vital Signs: Last Vital Signs Temp 97.8 F 05/30/22 06:05 Pulse 55 05/30/22 06:05 Resp 14 05/30/22 06:05 BP 121/70 05/30/22 06:05 Pulse Ox 98 05/30/22 06:05 O2 Del Method Room Air 05/30/22 06:05 BMI result Body Mass Index 26.1 Vital signs have been reviewed as appeared to be correct. Blood pressure normal. Heart rate normal. Respiration rate normal. Temperature normal. Oxygen saturation normal. Appearance: Alert. Oriented X3. No acute distress. Head: Normal external exam. Normocephalic. Atraumatic. No Sinclair signs noted. No raccoon eyes noted Eyes: PERRLA. EOMI. Conjunctiva and sclera normal. Eyelids normal. ENT: TM's Normal. Left nostril with dry blood, no active bleeding. Pharynx normal. Uvula midline. Moist mucous membranes. No trismus noted. No drooling noted. No muffled voice noted. Neck: Normal inspection. Neck supple. FROM. No adenopathy. Thyroid Normal. No meningeal signs. No neck mass noted. CVS: Normal heart rate and rhythm. Heart sound normal. No murmurs noted. Pulses normal throughout. Respiratory: No respiratory distress. Painless inspiration. Breath sounds normal. No wheezes/rales/rhonchi noted. Chest nontender. No accessory muscle usage noted or decreased air movement noted. Abdomen: Soft and nontender. Bowel sounds normal in all 4 quadrants. No distention noted. No organomegaly noted. No visible injury noted. Back: No CVA tenderness. Full range of motion noted. Skin: Skin warm and dry. Normal skin color. Normal skin turgor. No rashes/lesions/lacerations noted. Extremities: No lower extremity edema. Extremities exhibit normal range of motion. Extremities nontender. Neuro: Oriented X 3. Cranial nerve exam: II-XII are grossly intact No motor deficit. No sensory deficit. Reflexes normal. Course Course Course Narrative: 71-year-old male with history of epistaxis on Plavix came in with left nostril epistaxis, patient require cauterization to the left nostril for an active bleed while in the emergency department, patient was observed in the emergency department with no further bleeding. VSS. Reevaluation(s) Reevaluation #1: Patient started to bleed again from the left nostril, anterior packing was required will discharge the patient on Keflex. Time: 07:09 Medications Administered Discontinued Medications Generic Name Dose Route Start Last Admin Trade Name Freq PRN Reason Stop Dose Admin Silver Nitrate 1 appl 05/30/22 04:53 05/30/22 05:52 Silver Nitrate Applicator Stick..Ea. TOPICAL 05/30/22 04:54 1 appl ONCE ONE Administration Medical Decision Making Differential Diagnosis Differential Diagnoses: The differential diagnosis associated with the presentation includes (Coagulopathy, hypertension, anterior epistaxis, posterior epistaxis, thrombocytopenia.) Admission/Observation Consideration of admission/observation: Escalation of care including admission/observation considered Lab Data [facility] Lab Attestation statement: I reviewed the patient's lab results. 05/30/22 04:07 05/30/22 04:06 Labs: Lab Results 05/30/22 05/30/22 05/30/22 Range/Units 04:06 04:07 04:15 WBC 5.5 (4.8-10.8) X10*3/uL RBC 4.21 L (4.60-5.80) X10*6/uL Hgb 13.5 L (14.0-18.0) g/dl Hct 39.2 L (42.0-52.0) % MCV 93.1 (80.0-98.0) fL MCH 32.1 (27.0-33.0) pg MCHC 34.4 (31.0-36.0) g/dl RDW 12.3 (11.0-16.0) % Plt Count 243 (160-400) X10*3/uL MPV 9.8 (9.4-12.4) fL Immature Gran % (Auto) 0.4 (0.0-0.4) % Neut % (Auto) 50.1 (45-73) % Lymph % (Auto) 35.6 (20-40) % [place] % (Auto) 8.5 (2-11) % Eos % (Auto) 4.9 H (0-4) % Baso % (Auto) 0.5 (0-2) % Lymph # (Auto) 2.0 (1.2-4.9) X10*3/uL [place] # (Auto) 0.5 (0.1-1.2) X10*3/uL Eos # (Auto) 0.3 (0.0-0.4) X10*3/uL Baso # (Auto) 0.0 (0.0-0.2) X10*3/uL Abs Immat Gran (auto) 0.02 (0.00-0.03) X10*3/uL Absolute Neuts (auto) 2.8 (2.0-8.3) x10*3/uL Absolute Nucleated RBC 0.000 (0.0-0.012) X10*3/uL Nucleated RBC % (auto) 0.0 (0.0-0.2) /100WBC PT 10.8 (10.0-13.1) SEC INR 0.9 (0.9-1.1) APTT 26.8 (26.0-36.4) SEC Sodium 141 (135-145) mmol/L Potassium 4.3 (3.3-5.1) mmol/L Chloride 110 H (96-108) mmol/L Carbon Dioxide 23 (22-29) mmol/L Anion Gap 12 (12-20) BUN 13 (9-16) mg/dL Creatinine 0.80 (0.5-1.4) mg/dL Estim Creat Clear Calc 77.5 Estimated GFR > 60 Random Glucose 95 (60-115) mg/dL Calcium 8.5 (8.4-10.2) mg/dL Total Bilirubin 0.2 (0.0-1.0) mg/dL AST 17 (5-37) U/L ALT 15 (0-40) U/L Alkaline Phosphatase 60 (39-117) U/L Total Protein 5.7 L (6.5-8.0) g/dL Albumin 3.6 (3.5-5.0) g/dL Discharge Plan Discharge Clinical Impression: Epistaxis Patient Disposition: Home, Self-Care Instructions: Nosebleed (ED) Additional Instructions: Keep using the normal saline nose drops every day, use a moist string ointment as instructed, use a humidifier at home. Prescriptions: No Action metoprolol succinate 25 mg tablet extended release 24 hr 25 mg PO DAILY Qty: 90 3RF atorvastatin 80 mg tablet 80 mg PO QPM Qty: 90 3RF clopidogrel [Plavix] 75 mg tablet 75 mg PO DAILY 90 Days Qty: 90 3RF aspirin 81 mg tablet,delayed release (DR/EC) 81 mg PO DAILY amlodipine 10 mg tablet 10 mg PO DAILY Qty: 90 3RF tamsulosin 0.4 mg capsule 0.4 mg PO BID Referrals: Parth Hinojosa MD [Primary Care Provider] -
[2022-05-30] MEDS: Silver Nitrate Applicator STICK..EA. 1 APPL TOPICAL (05:52)
[2022-05-30 06:05] VITALS: BP 121/70; PULSE 55; RESP 14; TEMP 36.6; O2SAT 98
--- NOTE | 2022-05-30 06:06 | PC.NURSE ---
Pt aox4 resting at the bedside. MD at bedside cauterizing left nostril. Nose bleed has stopped after cauterizing. Pt aware of plan of care. Will continue to monitor.
[2022-05-30 07:14] VITALS: BP 150/79; PULSE 70; RESP 16; O2SAT 98
== END 2022-05-30 07:56 | disposition home or self-care (01) ==
PROVIDERS: Emergency Provider Emergency Medicine; PCP Internal Medicine
DX: R04.0 Epistaxis (principal); Z79.01 Long term (current) use of anticoagulants; Z79.82 Long term (current) use of aspirin; Z79.02 Long term (current) use of antithrombotics/antiplatelets
CPT/HCPCS: 30901; 36415; 80053; 85025; 85610; 85730; 99283; 99284

== ENCOUNTER 2022-06-01 06:14 | Emergency (ER) | payer MEDICARE, SELFPAY ==
[2022-06-01 06:21] VITALS: BP 126/82; PULSE 79; RESP 16; TEMP 36.6; O2SAT 98; BMI 26.1
[2022-06-01 06:34] VITALS: BP 126/82; PULSE 87; RESP 16; TEMP 36.7; O2SAT 97
--- NOTE | 2022-06-01 06:49 | ED.GENADULT ---
HPI - General Adult General Chief complaint: General Medical Stated complaint: packing removal Time Seen by Provider: 06/01/22 06:46 Source: patient Mode of arrival: ambulatory Limitations: no limitations History of Present Illness HPI narrative: Patient with history of recurrent epistaxis was seen here on 05/30 had left anterior nasal bleed and anterior packing was done comes here for nasal packing removal. No active bleeding at this time Related Data Home Medications Medication Instructions Recorded Confirmed aspirin 81 mg tablet,delayed 81 mg PO DAILY 01/02/20 11/10/21 release tamsulosin 0.4 mg capsule 0.4 mg PO BID 11/10/21 11/10/21 Previous Rx's Medication Instructions Recorded amlodipine 10 mg tablet 10 mg PO DAILY #90 tabs 05/19/21 metoprolol succinate 25 mg 25 mg PO DAILY #90 tabs 09/03/21 tablet,extended release 24 hr atorvastatin 80 mg tablet 80 mg PO QPM #90 tabs 12/24/21 clopidogrel 75 mg tablet (Plavix) 75 mg PO DAILY 90 days #90 tabs 04/21/22 amoxicillin 500 mg-potassium 1 tab PO BID #5 tabs 05/30/22 clavulanate 125 mg tablet (Augmentin) Allergies Allergy/AdvReac Type Severity Reaction Status Date / Time No Known Allergies Allergy Verified 06/01/22 06:26 [No Known Allergies*] Review of Systems Review of Systems: Yes all other systems are reviewed and are negative [facility] Past Medical History Medical History Abnormal LFTs Atherosclerotic cardiovascular disease CAD (coronary artery disease) Essential hypertension History of [place] (myocardial infarction) Hyperlipidemia, unspecified Personal history of nicotine dependence Subsequent ST elevation (STEMI) myocardial infarction Surgical History History of AAA (abdominal aortic aneurysm) repair (~2018) History of colonoscopy History of coronary artery bypass graft (~2002) History of endoscopy History of heart artery stent History of tonsillectomy Family History Family History Father Myocardial infarction Stroke Mother No problems noted. Social History Social History Alcohol intake: current Alcohol intake frequency: a few times a week Alcohol type: beer Patient Tobacco Use Status: Former Tobacco user Quit Date: 09/14/2011 Years Smoked: (former smoker - onset 15yo, 1-1.5ppd x 46yrs, 50pyh - quit 09/14/2011) Substance Use Type: Marijuana Physical Exam ED Vital Signs: Vital Signs - 24 hr 06/01/22 06:21 06/01/22 06:34 Temperature 97.8 F 98.0 F Pulse Rate 79 87 Respiratory Rate 16 16 Blood Pressure 126/82 126/82 Pulse Oximetry 98 97 Oxygen Delivery Method Room Air Room Air BMI result Body Mass Index 26.1 [facility] General nose exam: Normal external nose present, No nasal discharge present, Foreign body present in naris (Nasal tampon in place which was removed after deflating the balloon), Nasal polyp present (? Mucosal overgrowth/polyp) on the left and Other nasal findings present Resp Effort & Inspection: normal respiratory effort Auscultation: clear to auscultation bilaterally Cardio Rate: regular rate Rhythm: regular rhythm Heart sounds: S1 normal heart sound present and S2 normal heart sound present Medical Decision Making Medical Decision Making MDM Narrative: Left anterior nasal packing was removed no active bleeding patient discharged home advised to follow with ENT Discharge Plan Discharge Clinical Impression: H/O epistaxis Patient Disposition: Home, Self-Care Instructions: Nosebleed (ED) Additional Instructions: Local care as advised Follow with ENT specialist for evaluation Prescriptions: No Action metoprolol succinate 25 mg tablet extended release 24 hr 25 mg PO DAILY Qty: 90 3RF atorvastatin 80 mg tablet 80 mg PO QPM Qty: 90 3RF clopidogrel [Plavix] 75 mg tablet 75 mg PO DAILY 90 Days Qty: 90 3RF amoxicillin-pot clavulanate [Augmentin] 500-125 mg tablet 1 tab PO BID Qty: 5 0RF aspirin 81 mg tablet,delayed release (DR/EC) 81 mg PO DAILY amlodipine 10 mg tablet 10 mg PO DAILY Qty: 90 3RF tamsulosin 0.4 mg capsule 0.4 mg PO BID Referrals: Milan Marquez [Physician] - 1 week
== END 2022-06-01 06:54 | disposition home or self-care (01) ==
LOC: HO.ED 06:51
PROVIDERS: Emergency Provider Internal Medicine; PCP Internal Medicine
DX: R04.0 Epistaxis (principal)
CPT/HCPCS: 99282; 99284

== ENCOUNTER 2022-10-30 10:58 | Outpatient (REF) | payer MEDICARE, SELFPAY ==
[2022-10-30 11:02] LABS: MANUAL DIFF FLAG NO
[2022-10-30 11:11] LABS: Basophils Percent Auto 0.6 % (0-2); Eosinophils Absolute Auto 0.3 X10*3/uL (0.0-0.4); Eosinophils Percent Auto 5.3 % (0-4); Hematocrit 43.4 % (42.0-52.0); Hemoglobin 14.8 g/dl (14.0-18.0); Imm Gran Abs Auto 0.02 X10*3/uL (0.00-0.03); Imm Gran Pct Auto 0.3 % (0.0-0.4); Lymphocytes Percent Auto 31.2 % (20-40); Mean Corpuscular HGB Conc 34.1 g/dl (31.0-36.0); Mean Corpuscular Hemoglobin 31.9 pg (27.0-33.0); Mean Corpuscular Volume 93.5 fL (80.0-98.0); Mean Platelet Volume 11.1 fL (9.4-12.4); Monocytes Absolute Auto 0.6 X10*3/uL (0.1-1.2); Monocytes Percent Auto 8.8 % (2-11); Neutrophils Absolute Auto 3.4 x10*3/uL (2.0-8.3); Neutrophils Percent Auto 53.8 % (45-73); Platelet Count 184 X10*3/uL (160-400); Red Blood Count 4.64 X10*6/uL (4.60-5.80); Red Cell Distribution Width 13.1 % (11.0-16.0); White Blood Count 6.3 X10*3/uL (4.8-10.8)
[2022-10-30 11:12] LABS: Appearance Urine Clear; Color Urine Yellow; Glucose Urine UA Negative (Negative); Leukocyte Esterase Urine Negative (Negative); Nitrite Urine Negative (Negative); Urine Blood Negative (Negative); Urine Ketones Negative (Negative); Urine Protein Negative (Neg-Trace)
[2022-10-30 11:16] LABS: Bacteria Urine None Seen (None Seen); Hyaline Casts Urine 0-2 /LPF (0-2); RBC Urine 0-2 /HPF (0-2); Squamous Epithelial Cell Urine 0-2 /HPF (0-2); WBC Urine 0-5 /HPF (0-5)
[2022-10-30 11:21] LABS: Alanine Aminotransferase 20 U/L (0-40); Albumin Level 4.1 g/dL (3.5-5.0); Alkaline Phosphatase 55 U/L (39-117); Anion Gap 13 (12-20); Aspartate Amino Transferase 22 U/L (5-37); Bilirubin Total 0.5 mg/dL (0.0-1.0); Blood Urea Nitrogen 9 mg/dL (9-16); Calcium 9.6 mg/dL (8.4-10.2); Carbon Dioxide 26 mmol/L (22-29); Chloride 107 mmol/L (96-108); Cholesterol 135 mg/dL (<200); Estimated Glomerular Filt Rate > 60; Glucose Fasting 100 mg/dL (60-99); HDL Cholesterol 46 mg/dL (>40); LDL Cholesterol Calculated 77 mg/dL (<100); Sodium 142 mmol/L (135-145); Total Protein 6.5 g/dL (6.5-8.0); Triglycerides 61 mg/dL (<150)
[2022-10-30 11:50] LABS: PSA,Total (Free>4and<10) 4.68 ng/mL (0.00-4.00)
[2022-11-01 13:29] LABS: Free Prostate Spec Ag 1.1 ng/mL; Percent Free Prostate Spec Ag 26 % (calc) (>25); Prostate Specific Ag Total 4.3 ng/mL (< OR = 4.0)
== END 2022-10-30 10:59 | disposition home or self-care (01) ==
LOC: HO.LNP 10:58
PROVIDERS: Visit Provider Internal Medicine
DX: Z12.5 Encounter for screening for malignant neoplasm of prostate (principal); E78.00 Pure hypercholesterolemia, unspecified; I10 Essential (primary) hypertension; N40.0 Benign prostatic hyperplasia without lower urinary tract symptoms
CPT/HCPCS: 80053; 80061; 81001; 84153; 84154; 85025

== ENCOUNTER 2022-11-16 08:53 | Outpatient (AMB) | payer MEDICARE, SELFPAY ==
[2022-11-16 09:00] VITALS: BP 108/80; PULSE 62; BMI 26.8
--- NOTE | 2022-11-16 09:00 | MHC.OFFVIS ---
Intake Vital Signs 11/16/22 09:00 Height 5 ft 6 in Weight 166 lb 3.657 oz BMI 26.8 BP 108/80 Blood Pressure Location Lt brachial Position Sitting Pulse 62 Intake Visit Reasons: 1 year follow up Intake Note: 1 year follow up Medical Associate Required: No Accompanied by: Self / Same As Patient Allergies No Known Allergies [No Known Allergies*] Allergy (Verified 11/16/22 09:00) Medication List - Last Reconciled 11/16/22 by Kurt Wright MD amlodipine 10 mg PO DAILY amoxicillin-pot clavulanate 500-125 mg (Augmentin) 1 tab PO BID aspirin 81 mg PO DAILY atorvastatin 80 mg PO QPM clopidogrel (Plavix) 75 mg PO DAILY 90 days metoprolol succinate ER 25 mg PO DAILY tamsulosin 0.4 mg PO BID HPI HPI Comments History of Present Illness Details Mario returns for follow-up regarding coronary disease. To recall, in 2016, he was admitted for NSTEMI. Cardiac catheterization showed culprit vessel being the venous graft to the diagonal branch and this was stented. In May 2019, another NSTEMI; underwent cardiac catheterization. Culprit lesion was vein graft to diagonal consistent with very late stent thrombosis, treated with drug-eluting stenting. Then he was having colitis symptoms and was losing weight and also had abnormal LFTs. Then off cholesterol medications and the LFTs normalized. Then we put him back on them and LFTs again started going back. Currently, he is off the Zetia on taking statins only. Since last seen, patient states he is doing fine from cardiac. No symptoms like angina. Some nonspecific generalized tiredness but nothing specific from cardiac. [facility] Medical History Abnormal LFTs Atherosclerotic cardiovascular disease CAD (coronary artery disease) Essential hypertension History of [place] (myocardial infarction) Hyperlipidemia, unspecified Personal history of nicotine dependence Subsequent ST elevation (STEMI) myocardial infarction Surgical History History of endoscopy History of colonoscopy History of AAA (abdominal aortic aneurysm) repair (~2018) History of tonsillectomy History of heart artery stent History of coronary artery bypass graft (~2002) Family History Father Myocardial infarction Stroke Mother No problems noted. Social History Alcohol intake: current Alcohol intake frequency: a few times a week Alcohol type: beer Patient Tobacco Use Status: Former Tobacco user Quit Date: 09/14/2011 Years Smoked: (former smoker - onset 15yo, 1-1.5ppd x 46yrs, 50pyh - quit 09/14/2011) Substance Use Type: Marijuana Review of Systems Const Denies weakness ENT Denies dizziness Card Denies chest pain, Denies chest pain with activity, Denies syncope, Denies rapid heart rate, Denies pedal edema, Denies edema, Denies leg edema, Denies lightheadedness, Denies palpitations, Denies dyspnea, Denies dyspnea on exertion and Denies orthopnea Resp Denies cough, Denies dyspnea and Denies dyspnea on exertion GI Denies hematochezia and Denies change in stool character Musc Denies abnormal gait, Denies muscle cramps, Denies muscle weakness, Denies numbness, Denies radiating pain into limb and Denies tingling Neuro Denies abnormal gait, Denies dizziness, Denies syncope, Denies numbness, Denies tingling and Denies weakness Endo Denies palpitations Physical Exam Vital Signs: Last Vital Signs Pulse 62 11/16/22 09:00 BP 108/80 11/16/22 09:00 BMI result Body Mass Index 26.8 Const General: comfortable and no acute distress Orientation/consciousness: patient oriented x3 HEENT Other: Unremarkable Head: Yes normal to inspection Neck Neck: Yes normal visual inspection Chest Chest palpation & inspection: normal inspection of the chest Resp Auscultation: clear to auscultation bilaterally Cardio Palpation: normal PMI Heart sounds: S1 normal heart sound present, S2 normal heart sound present, no gallops, no murmurs and no rubs GI Palpation (GI): Soft to palpation Back/Spine/Pelvis Other: unremarkable Skin General skin exam: no rashes or lesions noted Neuro General: patient oriented x3 Extrem General: Yes normal to inspection Psych Mental Status: mental status grossly normal Office Procedures EKG Details: EKG with sinus rhythm at 62/Min; no significant ST-T changes and otherwise unremarkable. [place] [id number], Complete Assessment & Plan Assessment & Plan (1) Atherosclerotic cardiovascular disease: Code(s): I25.10 - Atherosclerotic heart disease of [place] coronary artery without angina pectoris Plan: Last cardiac catheterization data reviewed. 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 Remains stable and no anginal symptoms. May remain on long-term dual antiplatelet therapy. (2) Aortic valve sclerosis: Code(s): I35.8 - Other nonrheumatic aortic valve disorders Plan: Echocardiogram shows moderate aortic valve calcification but no significant stenosis. We can recheck before next visit. No specific implications at this time. (3) Essential hypertension: Code(s): I10 - Essential (primary) hypertension Plan: Stable. No changes. He gets tiredness with higher dose of beta-blockers and gets low blood pressure with lisinopril. (4) Hyperlipidemia, unspecified: Code(s): E78.5 - Hyperlipidemia, unspecified Plan: Continue statins. With Zetia, he has had LFT issues. Overall, controlled lipids. (5) Abdominal aortic aneurysm: Code(s): I71.4 - Abdominal aortic aneurysm, without rupture Qualifiers: Presence of rupture: without rupture Plan: Status post endovascular repair. Coding Level of Care Code Est Pt Level 4 (34567) Diagnoses Atherosclerotic cardiovascular disease I25.10 Aortic valve sclerosis I35.8 Essential hypertension I10 Hyperlipidemia, unspecified E78.5 Abdominal aortic aneurysm I71.4 Presence of rupture: without rupture CPT Codes EKG - CPT: [id number]-[id number], Complete ([id number])
== END 2022-11-16 09:19 | disposition home or self-care (01) ==
PROVIDERS: PCP Internal Medicine; Referring Provider Internal Medicine; Visit Provider Internal Medicine
DX: I25.10 Atherosclerotic heart disease of native coronary artery without angina pectoris (principal); I35.8 Other nonrheumatic aortic valve disorders; I10 Essential (primary) hypertension; E78.5 Hyperlipidemia, unspecified; I71.40 Abdominal aortic aneurysm, without rupture, unspecified
CPT/HCPCS: 93010; 99214

== ENCOUNTER → 2022-11-16 08:53 | Outpatient (BNVA) | payer MEDICARE, SELFPAY | PROVIDERS: PCP Internal Medicine; Referring Provider Internal Medicine; Visit Provider Internal Medicine | DX: I25.10 Atherosclerotic heart disease of native coronary artery without angina pectoris (principal); I35.8 Other nonrheumatic aortic valve disorders; I10 Essential (primary) hypertension; I71.40 Abdominal aortic aneurysm, without rupture, unspecified; E78.5 Hyperlipidemia, unspecified | CPT/HCPCS: 93005; 99212 ==

== ENCOUNTER 2023-03-26 08:25 | Emergency (ER) | payer MEDICARE, SELFPAY ==
[2023-03-26 08:51] VITALS: BP 137/75; PULSE 55; RESP 16; TEMP 36.2; O2SAT 97; BMI 26.6
--- NOTE | 2023-03-26 09:26 | ED.EAR ---
HPI - Ear Problem General Chief complaint: Ear Problems Stated complaint: Blockage R Ear Time Seen by Provider: 03/26/23 09:04 Source: patient, RN notes reviewed and old records reviewed Mode of arrival: ambulatory History of Present Illness HPI Narrative: 72-year-old male with a past medical history of CAD, aortic valve stenosis, HTN, HLD presenting to the ED complaining of right ear feeling blocked since yesterday. Admits to trying OTC home remedies without improvement. Denies headache, nausea/vomiting, drainage from ear, sore throat, fever Related Data Home Medications Medication Instructions Recorded Confirmed aspirin 81 mg tablet,delayed 81 mg PO DAILY 01/02/20 11/16/22 release tamsulosin 0.4 mg capsule 0.4 mg PO BID 11/10/21 11/16/22 Previous Rx's Medication Instructions Recorded amoxicillin 500 mg-potassium 1 tab PO BID #5 tabs 05/30/22 clavulanate 125 mg tablet (Augmentin) amlodipine 10 mg tablet 10 mg PO DAILY #90 tabs 07/09/22 metoprolol succinate 25 mg 25 mg PO DAILY #90 tabs 08/24/22 tablet,extended release 24 hr atorvastatin 80 mg tablet 80 mg PO QPM #90 tabs 12/14/22 clopidogrel 75 mg tablet 75 mg PO DAILY #90 tabs 01/14/23 amoxicillin 875 mg-potassium 1 tab PO BID 7 days #14 tabs 03/26/23 clavulanate 125 mg tablet Allergies Allergy/AdvReac Type Severity Reaction Status Date / Time No Known Allergies Allergy Verified 11/16/22 09:00 [No Known Allergies*] Review of Systems Review of Systems: Constitutional: No Fever, No Chills ENT/Mouth: + Ear Pain, No Nasal Congestion, No Sinus Pain, No Hoarseness, No sore throat, No Rhinorrhea, No Swallowing Difficulty Cardiovascular: No Chest Pain, No SOB Respiratory: No Cough, No Sputum, No Wheezing Gastrointestinal: No Nausea, No Vomiting, No Abdominal pain Musculoskeletal: No joint pain Skin: No Skin Lesions, No rash Neuro: No Weakness Yes all other systems are reviewed and are negative Constitutional: Constitutional: Reports as per [facility] Past Medical History Attestation statement: The following information was validated with the patient. Source: old records reviewed Medical History History of [place] (myocardial infarction) Personal history of nicotine dependence CAD (coronary artery disease) Abnormal LFTs Hyperlipidemia, unspecified Essential hypertension Subsequent ST elevation (STEMI) myocardial infarction Atherosclerotic cardiovascular disease Surgical History History of endoscopy History of colonoscopy History of AAA (abdominal aortic aneurysm) repair (~2018) History of tonsillectomy History of heart artery stent History of coronary artery bypass graft (~2002) Family History Family History Father Myocardial infarction Stroke Mother No problems noted. Social History Social History Alcohol intake: current Alcohol intake frequency: 3 or more drinks per day Alcohol type: beer Patient Tobacco Use Status: Former Tobacco user Quit Date: 09/14/2011 Years Smoked: (former smoker - onset 15yo, 1-1.5ppd x 46yrs, 50pyh - quit 09/14/2011) Smoked in Last 30 Days: No Use of substances other than those prescribed or required for medical reasons: Yes Substance Use Type: Marijuana Advance Directives: No Advance Directives Information Provided: No Physical Exam Vital Signs: Vital Signs: Last Vital Signs Temp 97.2 F 03/26/23 08:51 Pulse 55 03/26/23 08:51 Resp 16 03/26/23 08:51 BP 137/75 03/26/23 08:51 Pulse Ox 97 03/26/23 08:51 BMI result Body Mass Index 26.6 Const: General: cooperative, healthy appearing and no acute distress Orientation/consciousness: patient oriented x3 Limitations: no limitations HEENT: Head: Yes normal to inspection and Yes atraumatic Ears: hearing grossly normal bilaterally, external ears normal and TM abnormal wth effusion and with fluid behind the TM on the right General nose exam: Normal external nose present Face and sinus: Yes normal facial exam Throat: Yes posterior oropharynx normal, Yes tonsils normal, Yes uvula midline, No peritonsillar mass and No uvular edema Eyes: General: appearance normal, both eyes and all related structures EOM: EOMs intact bilaterally Neck: Neck: Yes normal visual inspection and Yes no meningeal signs Resp: Effort & Inspection: normal respiratory effort and no respiratory distress Cardio: Rate: regular rate : General: Yes no CVA tenderness Back/Spine/Pelvis: Back: no CVA tenderness Skin: Rashes: no rashes Wounds: no wounds Neuro: General: patient oriented x3, tone normal and no meningeal signs Cranial nerves: Yes CN's II-XII intact bilaterally Gait exam (Neuro): Normal gait present Extrem: General: Yes normal to inspection Medical Decision Making Medical Decision Making MDM Narrative: 72-year-old male with a past medical history of CAD, aortic valve stenosis, HTN, HLD presenting to the ED complaining of right ear feeling blocked since yesterday. On exam vital signs stable, NAD, nontoxic appearing, right TM with fluid consistent with otitis media. No evidence of mastoiditis, chronic otitis externa or MET[employer] MINER BLASTING/retropharyngeal abscess Plan: P.o. antibiotics, ENT follow-up as needed Please refer to course for remaining clinical decision making, interpretation of labs/imaging results, and discussions with consultants and/or family members. Differential Diagnosis Differential Diagnoses: The differential diagnosis associated with the presentation includes As above External Record Review External record reviewed: Inpatient record, Office record, Outpatient record, Prior outpatient labs, Prior outpatient radiology, Primary care record and Outside ED record Tests considered The following testing was considered but not selected: As above Prescription Management I considered prescription management with: Pain Medication and Antibiotic Discharge Plan Discharge Clinical Impression: Otitis media Patient Disposition: Home, Self-Care Instructions: Ear Infection (ED) Additional Instructions: Augmentin is an antibiotic please take as prescribed Please follow-up with ENT as needed If symptoms persist or worsen the of drainage from ear, fever/chills return to the ED Prescriptions: New amoxicillin-pot clavulanate 875-125 mg tablet 1 tab PO BID 7 Days Qty: 14 0RF No Action amlodipine 10 mg tablet 10 mg PO DAILY Qty: 90 3RF metoprolol succinate 25 mg tablet extended release 24 hr 25 mg PO DAILY Qty: 90 3RF atorvastatin 80 mg tablet 80 mg PO QPM Qty: 90 3RF clopidogrel 75 mg tablet 75 mg PO DAILY Qty: 90 3RF amoxicillin-pot clavulanate [Augmentin] 500-125 mg tablet 1 tab PO BID Qty: 5 0RF aspirin 81 mg tablet,delayed release (DR/EC) 81 mg PO DAILY tamsulosin 0.4 mg capsule 0.4 mg PO BID Referrals: Parth Hinojosa MD [Primary Care Provider] - Milan Marquez [Physician] -
== END 2023-03-26 09:36 | disposition home or self-care (01) ==
PROVIDERS: Emergency Provider Emergency Medicine; PCP Internal Medicine
DX: H66.91 Otitis media, unspecified, right ear (principal); I10 Essential (primary) hypertension; E78.5 Hyperlipidemia, unspecified; Z79.02 Long term (current) use of antithrombotics/antiplatelets; Z79.899 Other long term (current) drug therapy
CPT/HCPCS: 99283; 99284

== ENCOUNTER 2023-04-25 14:35 | Emergency (ER) | payer MEDICARE, SELFPAY ==
[2023-04-25 14:39] VITALS: BP 132/76; PULSE 96; RESP 20; TEMP 36.7; O2SAT 96; BMI 27.0
--- NOTE | 2023-04-25 14:50 | PC.NURSE ---
Pt brought back from waiting room. Reports epistaxis x approx 30minutes. States he has a history of nose bleeds and it has been about a year since his last nose bleed. He has a history of having them cauterized. He has been compliant with his nasal spray, humidifier and other nose bleed treatment. Currently denies dizziness, lightheadedness, CP or SOB. Alert and oriented x4, skin pwd, ambulated with steady gait to bed. Offers no complaints to this RN at this time. Bleeding is controlled with nasal clamp
--- NOTE | 2023-04-25 15:55 | PC.NURSE ---
pt awaiting provider to pick them up, is cantankerous as they have been waiting in the room for about an hour waiting to be seen. this nurse informed charge nurse who had noticed herself that the has been pacing in the back hallway. stated I see a doctor and another lady walking around and doing nothing, why cant they come see my This nurse explained to the that although it appears that they aren't doing anything that they are in fact checking in on their patients. This nurse checked and told the that he was to be the next person to be seen according to our tracker.
--- NOTE | 2023-04-25 15:58 | PC.NURSE ---
currently the patients epistaxis has stopped
--- NOTE | 2023-04-25 16:15 | ED.GENADULT ---
HPI - General Adult General Chief complaint: General Medical Stated complaint: Nose bleed on thinners Time Seen by Provider: 04/25/23 16:03 Source: patient, RN notes reviewed and old records reviewed Mode of arrival: ambulatory Limitations: no limitations History of Present Illness HPI narrative: 72-year-old male presents for evaluation of nosebleed. Patient reports he always has a bleed in the left naris. His last nosebleed was about 10 months ago. He was seen here a few times last year and had cauterization of an anterior bleed He reports he has been using saline nasal spray and a humidifier at night with good relief up until today Today he reports spontaneous nosebleeds again on the left that did not seem to resolve with direct pressure However he has been in the ER for about an hour and a half and states the nosebleed stopped about an hour ago He reports taking Plavix Related Data Home Medications Medication Instructions Recorded Confirmed aspirin 81 mg tablet,delayed 81 mg PO DAILY 01/02/20 11/16/22 release tamsulosin 0.4 mg capsule 0.4 mg PO BID 11/10/21 11/16/22 Previous Rx's Medication Instructions Recorded amoxicillin 500 mg-potassium 1 tab PO BID #5 tabs 05/30/22 clavulanate 125 mg tablet (Augmentin) amlodipine 10 mg tablet 10 mg PO DAILY #90 tabs 07/09/22 metoprolol succinate 25 mg 25 mg PO DAILY #90 tabs 08/24/22 tablet,extended release 24 hr atorvastatin 80 mg tablet 80 mg PO QPM #90 tabs 12/14/22 clopidogrel 75 mg tablet 75 mg PO DAILY #90 tabs 01/14/23 amoxicillin 875 mg-potassium 1 tab PO BID 7 days #14 tabs 03/26/23 clavulanate 125 mg tablet Allergies Allergy/AdvReac Type Severity Reaction Status Date / Time No Known Allergies Allergy Verified 04/25/23 14:38 [No Known Allergies*] Review of Systems Constitutional: Constitutional: Denies chills and Denies fever(s) ENT: Reports epistaxis Cardiovascular: Cardiovascular: Denies dyspnea Respiratory: Respiratory: Denies cough and Denies dyspnea PMFSH Past Medical History Medical History History of [place] (myocardial infarction) Personal history of nicotine dependence CAD (coronary artery disease) Abnormal LFTs Hyperlipidemia, unspecified Essential hypertension Subsequent ST elevation (STEMI) myocardial infarction Atherosclerotic cardiovascular disease Surgical History History of endoscopy History of colonoscopy History of AAA (abdominal aortic aneurysm) repair (~2018) History of tonsillectomy History of heart artery stent History of coronary artery bypass graft (~2002) Family History Family History Father Myocardial infarction Stroke Mother No problems noted. Social History Social History Alcohol intake: current Alcohol intake frequency: 3 or more drinks per day Alcohol type: beer Patient Tobacco Use Status: Former Tobacco user Quit Date: 09/14/2011 Years Smoked: (former smoker - onset 15yo, 1-1.5ppd x 46yrs, 50pyh - quit 09/14/2011) Smoked in Last 30 Days: No Use of substances other than those prescribed or required for medical reasons: Yes Substance Use Type: Marijuana Advance Directives: No Advance Directives Information Provided: No Physical Exam ED Vital Signs: Vital Signs - 24 hr 04/25/23 14:39 Temperature 98.0 F Pulse Rate 96 Respiratory Rate 20 Blood Pressure 132/76 Pulse Oximetry 96 Oxygen Delivery Method Room Air BMI result Body Mass Index 27.0 Const General: healthy appearing, comfortable, no acute distress, alert and awake Nutritional Appearance: well nourished Orientation/consciousness: patient oriented x3 HENMT Other: Dried blood within the left nostril. No obvious active bleeding, no large clots. Head: Yes normocephalic and Yes atraumatic Eyes Eyelids: Yes eyelids normal Conjunctivae: conjunctivae normal Sclerae: sclerae normal Corneas: corneas normal Pupils: Equal, round and reactive pupils present EOM: EOMs intact bilaterally Resp Effort & Inspection: normal respiratory effort, able to speak in complete sentences and not labored Skin General skin exam: elasticity normal Neuro General: patient oriented x3 Cranial nerves: Yes Equal, round and reactive pupils present and Yes Bilaterally intact EOM present Cognition (Neuro): normal cognition Extrem Other: Moving all extremities well without any obvious deformities Medical Decision Making Medical Decision Making MDM Narrative: 72-year-old male presents for evaluation of epistaxis. His nosebleed stopped about an hour prior to my evaluation. This stopped with direct pressure using a clamp to the nose. Patient was educated on continued treatment of mild epistaxis. He has follow-up with ENT this coming for a separate issue but will discuss his nosebleeds Differential Diagnosis Differential Diagnoses: The differential diagnosis associated with the presentation includes Epistaxis Coagulopathy Anterior bleed Upper respiratory infection Discharge Plan Discharge Clinical Impression: Epistaxis Patient Disposition: Home, Self-Care Instructions: Nosebleed (ED) Additional Instructions: Continue your home regimen to help prevent further nosebleeds. You may try 2 sprays of Afrin nasal spray for small nosebleeds This will not stop any heavy bleeding If you have bleeding that lasts for more than an hour I recommend return to the emergency department Follow-up with your primary doctor Return for new or worsening symptoms Prescriptions: No Action amlodipine 10 mg tablet 10 mg PO DAILY Qty: 90 3RF metoprolol succinate 25 mg tablet extended release 24 hr 25 mg PO DAILY Qty: 90 3RF atorvastatin 80 mg tablet 80 mg PO QPM Qty: 90 3RF clopidogrel 75 mg tablet 75 mg PO DAILY Qty: 90 3RF amoxicillin-pot clavulanate [Augmentin] 500-125 mg tablet 1 tab PO BID Qty: 5 0RF amoxicillin-pot clavulanate 875-125 mg tablet 1 tab PO BID 7 Days Qty: 14 0RF aspirin 81 mg tablet,delayed release (DR/EC) 81 mg PO DAILY tamsulosin 0.4 mg capsule 0.4 mg PO BID Interventions: ED Discharge Assessment Last Done: 04/25/23 16:29 Discharge Date/Time: 04/25/23 16:30
== END 2023-04-25 16:30 | disposition home or self-care (01) ==
PROVIDERS: Emergency Provider Emergency Medicine; PCP Internal Medicine
DX: R04.0 Epistaxis (principal); Z79.899 Other long term (current) drug therapy
CPT/HCPCS: 99284

== ENCOUNTER 2023-04-26 05:53 | Emergency (ER) | payer MEDICARE, SELFPAY ==
[2023-04-26 06:04] VITALS: BP 119/74; PULSE 92; RESP 16; TEMP 36.3; O2SAT 96; BMI 27.0
[2023-04-26 06:07] VITALS: BP 119/74; PULSE 92; RESP 16; TEMP 36.3; O2SAT 96
--- NOTE | 2023-04-26 06:08 | PC.NURSE ---
Pt presents to ED with nosebleed for over an hour. Pt was seen here 04/25 for a nosebleed. Bleed stopped mostly on its own and pt was discharged. Around 0500, pt woke up feeling congested and blew his nose. Pt dislodged a clot and nosebleed began again. Pt was following instructions on his discharge papers but nosebleed wouldn't stop so pt decided to come to the ER. Pt denies lightheadedness/dizziness at this time. A&Ox4, GCS 15, independently ambulatory.
--- NOTE | 2023-04-26 07:14 | ED_ITS ---
History of Present Illness General Chief Complaint: Epistaxis Stated Complaint: nose bleed wont stop Time Seen by Provider: 04/26/23 06:59 Source: patient Mode of arrival: ambulatory Limitations: no limitations History of Present Illness HPI Narrative: Very pleasant 72 years old male with history of CAD on Plavix presented with left epistaxis he was seen in the emergency department yesterday he was treated and discharged home returned today because he is still bleeding from the left nostril Location: Yes left naris Onset/current episode: Yes day(s) (1) Duration: Yes constant Pertinent past history: Yes other (cad) Context: Yes history of previous nose bleed Treatment prior to arrival: Yes none Related Data Home Medications Medication Instructions Recorded Confirmed aspirin 81 mg tablet,delayed 81 mg PO DAILY 01/02/20 11/16/22 release tamsulosin 0.4 mg capsule 0.4 mg PO BID 11/10/21 11/16/22 Previous Rx's Medication Instructions Recorded amoxicillin 500 mg-potassium 1 tab PO BID #5 tabs 05/30/22 clavulanate 125 mg tablet (Augmentin) amlodipine 10 mg tablet 10 mg PO DAILY #90 tabs 07/09/22 metoprolol succinate 25 mg 25 mg PO DAILY #90 tabs 08/24/22 tablet,extended release 24 hr atorvastatin 80 mg tablet 80 mg PO QPM #90 tabs 12/14/22 clopidogrel 75 mg tablet 75 mg PO DAILY #90 tabs 01/14/23 amoxicillin 875 mg-potassium 1 tab PO BID 7 days #14 tabs 03/26/23 clavulanate 125 mg tablet amoxicillin 500 mg capsule 500 mg PO TID #15 caps 04/26/23 Allergies Allergy/AdvReac Type Severity Reaction Status Date / Time No Known Allergies Allergy Verified 04/25/23 14:38 [No Known Allergies*] Review of Systems Eyes: Eyes: Reports no additional eye complaints ENT: Reports other (epistaxis) Cardiovascular: Cardiovascular: Reports no additional cardiovascular complaints PMFSH Past Medical History Attestation statement: The following information was validated with the patient. Medical History History of [place] (myocardial infarction) Personal history of nicotine dependence CAD (coronary artery disease) Abnormal LFTs Hyperlipidemia, unspecified Essential hypertension Subsequent ST elevation (STEMI) myocardial infarction Atherosclerotic cardiovascular disease Surgical History History of endoscopy History of colonoscopy History of AAA (abdominal aortic aneurysm) repair (~2018) History of tonsillectomy History of heart artery stent History of coronary artery bypass graft (~2002) Family History Family History Father Myocardial infarction Stroke Mother No problems noted. Social History Social History Alcohol intake: current Alcohol intake frequency: 0-2 drinks per day Alcohol type: beer Patient Tobacco Use Status: Former Tobacco user Quit Date: 09/14/2011 Years Smoked: (former smoker - onset 15yo, 1-1.5ppd x 46yrs, 50pyh - quit 09/14/2011) Smoked in Last 30 Days: No Use of substances other than those prescribed or required for medical reasons: Yes Substance Use Type: Marijuana Substance Use Frequency: Daily Advance Directives: No Advance Directives Information Provided: No Physical Exam Vital Signs: Vital Signs: Last Vital Signs Temp 97.4 F 04/26/23 12:14 Pulse 72 04/26/23 12:14 Resp 14 04/26/23 12:14 BP 160/97 H 04/26/23 12:14 Pulse Ox 97 04/26/23 12:14 O2 Del Method Room Air 04/26/23 12:14 BMI result Body Mass Index 27.0 Const: General: cooperative Nutritional Appearance: well nourished Orientation/consciousness: patient oriented x3 HEENT: Other: Active bleeding in the left nostril noted Ears: hearing grossly normal bilaterally General nose exam: Normal external nose present and Other nasal findings present (Bleeding from the left nose) Face and sinus: Yes normal facial exam Mouth: Normal oral and palatal mucosa present Teeth and gingiva: dentition normal Throat: Yes posterior oropharynx normal Neck: Neck: Yes normal visual inspection Chest: Chest palpation & inspection: normal inspection of the chest Cardio: Jugular venous distension: no JVD Rate: regular rate Rhythm: regular rhythm GI: Inspection: Yes normal to inspection Palpation (GI): Soft to palpation, not firm and nontender Skin: General skin exam: no rashes or lesions noted Neuro: General: patient oriented x3 Course Reevaluation(s) Reevaluation #1: no bleeding comfortable in the stretcher Time: 07:57 Reevaluation #2: No bleeding, I discussed the case with his Cardiology Dr. Wright we could stop the Plavix for about a week given the fact that the this is a 2nd trip in 24 hour to the emergency department Time: 11:59 Medications Administered Discontinued Medications Generic Name Dose Route Start Last Admin Trade Name Paty PRN Reason Stop Dose Admin Lidocaine HCl 10 ml 04/26/23 09:48 04/26/23 10:32 Lidocaine Hcl 2 % Urojet 10 Ml Jel.Pf.Vic TOPICAL 04/26/23 09:49 10 ml ONCE ONE Administration Silver Nitrate 1 appl 04/26/23 07:04 04/26/23 08:49 Silver Nitrate Applicator Stick..Ea. TOPICAL 04/26/23 07:05 1 appl ONCE ONE Administration Medical Decision Making Medical Decision Making [facility] Narrative: Patient presented with recurrent epistaxis will catheterize the nostril back the nursing Differential Diagnosis Differential Diagnoses: The differential diagnosis associated with the presentation includes Epistaxis/thrombocytopenia/coagulopathy Admission/Observation Consideration of admission/observation: Escalation of care including admission/observation considered Procedures Epistaxis Control Time Out Performed: Yes Nostril: Yes left Direct inspection method: Yes nasal speculum Clots removed by: Yes suction Epistaxis treatment: Yes nasal tampon Results of treatment: Yes bleeding controlled Complications: Yes none Discharge Plan Discharge Clinical Impression: Epistaxis Patient Disposition: Home, Self-Care Instructions: Nosebleed (ED) Additional Instructions: Follow-up with your ENT on Wednesday you told me that you have an appointment on Wednesday. Take antibiotic as directed Prescriptions: New amoxicillin 500 mg capsule 500 mg PO TID Qty: 15 0RF No Action amlodipine 10 mg tablet 10 mg PO DAILY Qty: 90 3RF metoprolol succinate 25 mg tablet extended release 24 hr 25 mg PO DAILY Qty: 90 3RF atorvastatin 80 mg tablet 80 mg PO QPM Qty: 90 3RF clopidogrel 75 mg tablet 75 mg PO DAILY Qty: 90 3RF amoxicillin-pot clavulanate [Augmentin] 500-125 mg tablet 1 tab PO BID Qty: 5 0RF amoxicillin-pot clavulanate 875-125 mg tablet 1 tab PO BID 7 Days Qty: 14 0RF aspirin 81 mg tablet,delayed release (DR/EC) 81 mg PO DAILY tamsulosin 0.4 mg capsule 0.4 mg PO BID Interventions: ED Discharge Assessment Last Done: 04/26/23 12:17 Discharge Date/Time: 04/26/23 12:18
[2023-04-26 08:06] VITALS: BP 138/65
--- NOTE | 2023-04-26 08:07 | PC.NURSE ---
provider aware of BP d/t recurrent nose bleed, pt also forgot to mention to MD that he has been on recent prednisone treatment for virus with hearing loss.
[2023-04-26] MEDS: Silver Nitrate Applicator STICK..EA. 1 APPL TOPICAL (08:49)
[2023-04-26] MEDS: Lidocaine HCl 2 % Urojet 10 ML JEL.PF.APP TOPICAL (10:32)
[2023-04-26 10:52] VITALS: BP 160/90; PULSE 78; RESP 16; O2SAT 96
--- NOTE | 2023-04-26 10:52 | PC.NURSE ---
Pt resting in bed, no acute bleeding noted. Pt reports mild discomfort in nose, 3/10,, dull ache. No other new complaints.
[2023-04-26 12:14] VITALS: BP 160/97; PULSE 72; RESP 14; TEMP 36.3; O2SAT 97
== END 2023-04-26 12:18 | disposition home or self-care (01) ==
PROVIDERS: Emergency Provider Emergency Medicine; PCP Internal Medicine
DX: R04.0 Epistaxis (principal); I25.10 Atherosclerotic heart disease of native coronary artery without angina pectoris; I10 Essential (primary) hypertension; I25.2 Old myocardial infarction; Z79.02 Long term (current) use of antithrombotics/antiplatelets
CPT/HCPCS: 30901; 99284

== ENCOUNTER 2023-05-06 11:24 | Outpatient (REF) | payer MEDICARE, SELFPAY ==
[2023-05-06 12:27] LABS: Alanine Aminotransferase 18 U/L (0-40); Albumin Level 3.7 g/dL (3.5-5.0); Alkaline Phosphatase 53 U/L (39-117); Aspartate Amino Transferase 20 U/L (5-37); Bilirubin Direct 0.2 mg/dL (0.0-0.5); Bilirubin Total 0.4 mg/dL (0.0-1.0); Cholesterol 131 mg/dL (<200); HDL Cholesterol 44 mg/dL (>40); LDL Cholesterol Calculated 74 mg/dL (<100); Total Protein 6.3 g/dL (6.5-8.0); Triglycerides 68 mg/dL (<150)
[2023-05-06 13:36] LABS: Reflex LDLD? No
== END 2023-05-06 11:25 | disposition home or self-care (01) ==
LOC: HO.LNP 11:24
PROVIDERS: Visit Provider Internal Medicine
DX: E78.00 Pure hypercholesterolemia, unspecified (principal)
CPT/HCPCS: 80061; 80076

== ENCOUNTER 2023-05-12 15:05 | Emergency (ER) | payer MEDICARE, SELFPAY ==
[2023-05-12 15:08] VITALS: BP 138/90; PULSE 72; RESP 16; TEMP 37; O2SAT 98; BMI 27.5
--- NOTE | 2023-05-12 15:23 | ED_ITS ---
History of Present Illness General Chief Complaint: Epistaxis Stated Complaint: nosebleed Time Seen by Provider: 05/12/23 15:26 Source: patient and family (patient's ) Mode of arrival: ambulatory Limitations: no limitations History of Present Illness HPI Narrative: Patient is a 72 year old assigned male at with a history of CABG, on plavix, presenting to the emergency department today with a left sided nose bleed. Patient states that he has an extensive history of nosebleeds since being on Plavix and he follows with his ENT, regularly. Patient states that he usually uses afrin, OTC foam, and a nose clamp and that stops them however, today, it continues to bleed. Patient states that he used saline spray when getting out of the shower and he believes that is what caused the bleed. Patient denies any dizziness, lightheadedness, abdominal pain, nausea, vomiting, fever, chills, blurry vision, double vision, loss of vision, chest pain, difficulty breathing, shortness of breath, back pain, night sweats, pain with urination, increased urinary frequency, increased urinary urgency, blood in his urine or stool, syncope or a near syncopal episode, recent trauma or falls, bowel incontinence, bladder incontinence, bowel retention, bladder retention, or any other complaints at this time. Location: Yes left naris Onset/current episode: Yes minute(s) Duration: Yes constant Pertinent past history: Yes history of previous nose bleed Context: Yes history of previous nose bleed and Yes other (plavix use) Treatment prior to arrival: Yes nose pinching, Yes head leaning forward and Yes nasal clamp Related Data Home Medications Medication Instructions Recorded Confirmed aspirin 81 mg tablet,delayed 81 mg PO DAILY 01/02/20 11/16/22 release tamsulosin 0.4 mg capsule 0.4 mg PO BID 11/10/21 11/16/22 Previous Rx's Medication Instructions Recorded amoxicillin 500 mg-potassium 1 tab PO BID #5 tabs 05/30/22 clavulanate 125 mg tablet (Augmentin) amlodipine 10 mg tablet 10 mg PO DAILY #90 tabs 07/09/22 metoprolol succinate 25 mg 25 mg PO DAILY #90 tabs 08/24/22 tablet,extended release 24 hr atorvastatin 80 mg tablet 80 mg PO QPM #90 tabs 12/14/22 clopidogrel 75 mg tablet 75 mg PO DAILY #90 tabs 01/14/23 amoxicillin 875 mg-potassium 1 tab PO BID 7 days #14 tabs 03/26/23 clavulanate 125 mg tablet amoxicillin 500 mg capsule 500 mg PO TID #15 caps 04/26/23 Allergies Allergy/AdvReac Type Severity Reaction Status Date / Time No Known Allergies Allergy Verified 04/25/23 14:38 [No Known Allergies*] Review of Systems Constitutional: Constitutional: Reports no additional constitutional c omplaints, Denies chills, Denies fever(s) and Denies night sweats Eyes: Eyes: Reports no additional eye complaints, Denies blurry vision, Denies change in vision, Denies diplopia, Denies eye discharge, Denies loss of vision and Denies eye pain ENT: Denies dizziness and Reports epistaxis Cardiovascular: Cardiovascular: Reports no additional cardiovascular complaints, Denies chest pain, Denies lightheadedness, Denies Loss of Consciousness and Denies dyspnea Respiratory: Respiratory: Reports no additional respiratory complaints and Denies dyspnea Gastrointestinal: Gastrointestinal: Reports no additional gastrointestinal complaints, Denies abdominal pain, Denies melena, Denies hematochezia, Denies change in bowel habits and Denies change in stool character Genitourinary: Genitourinary: Reports no additional male genitourinary complaints, Denies hematuria, Denies oliguria, Denies difficulty urinating, Denies dysuria, Denies urinary frequency, Denies urinary hesitancy, Denies urinary incontinence and Denies urinary urgency Musculoskeletal: Musculoskeletal: Reports no additional musculoskeletal complaints, Denies numbness and Denies tingling Neurologic: Denies dizziness, Denies loss of vision, Denies numbness and Denies tingling Psychiatric: Psychiatric: Reports no additional psychiatric complaints Endocrine: Endocrine: Reports no additional endocrine complaints Hematologic/Lymphatic: Hematologic/Lymphatic: Reports no additional hematolo gic/lymphatic complaints Allergic/Immunologic: Allergic/Immunologic: Reports no additional allergic/immunologic complaints PMFSH Past Medical History Attestation statement: The following information was validated with the patient. (all information validated with the patient's ) Source: old records reviewed, obtained from family (patient's provided additional history and confirmed the history provided by the patient) and nursing notes reviewed Medical History History of [place] (myocardial infarction) Personal history of nicotine dependence CAD (coronary artery disease) Abnormal LFTs Hyperlipidemia, unspecified Essential hypertension Subsequent ST elevation (STEMI) myocardial infarction Atherosclerotic cardiovascular disease Surgical History History of endoscopy History of colonoscopy History of AAA (abdominal aortic aneurysm) repair (~2018) History of tonsillectomy History of heart artery stent History of coronary artery bypass graft (~2002) Family History Family History Father Myocardial infarction Stroke Mother No problems noted. Social History Social History Alcohol intake: current Alcohol intake frequency: 0-2 drinks per day Alcohol type: beer Patient Tobacco Use Status: Former Tobacco user Quit Date: 09/14/2011 Years Smoked: (former smoker - onset 15yo, 1-1.5ppd x 46yrs, 50pyh - quit 09/14/2011) Substance Use Type: Marijuana Advance Directives: No Advance Directives Information Provided: Yes Physical Exam Vital Signs: Vital Signs: Last Vital Signs Temp 98.6 F 05/12/23 15:08 Pulse 72 05/12/23 15:08 Resp 16 05/12/23 15:08 BP 138/90 H 05/12/23 15:08 Pulse Ox 98 05/12/23 15:08 O2 Del Method Room Air 05/12/23 15:08 BMI result Body Mass Index 27.5 Const: General: cooperative, no acute distress, alert and awake Nutritional Appearance: well nourished Orientation/consciousness: patient oriented x3 Limitations: no limitations HEENT: Head: Yes normal to inspection and Yes atraumatic Ears: hearing grossly normal bilaterally and external ears normal General nose exam: Normal external nose present, no nasal discharge noted and Epistaxis present on the left anterior source and active bleeding Face and sinus: Yes normal facial exam, No abrasion and No laceration Mouth: Normal oral and palatal mucosa present, no drooling and no muffled voice Eyes: General: appearance normal, both eyes and all related structures Periorbital: periorbital findings normal Eyelids: Yes eyelids normal Conjunctivae: conjunctivae normal Pupils: Equal, round and reactive pupils present EOM: EOMs intact bilaterally Neck: Neck: Yes normal visual inspection, Yes full ROM and Yes no lymphadenopathy Chest: Chest palpation & inspection: normal inspection of the chest Resp: Effort & Inspection: normal respiratory effort and able to speak in complete sentences GI: Inspection: Yes normal to inspection Neuro: General: patient oriented x3 and moves all extremities Cranial nerves: Yes Equal, round and reactive pupils present Cognition (Neuro): normal cognition Motor exam (neuro): 5/5 motor strength present throughout Sensory Exam: Normal double simultaneous stimulation for sensation Coordination: [id number] test normal Extrem: General: Yes normal to inspection, Yes full ROM and Yes capillary refill normal Psych: Appearance: grossly normal Mental Status: mental status grossly normal Affect: normal affect Attitude: cooperative Thought process: Normal thought process present Thought content: Normal thought content present Insight: Good insight present (Psych) Course Course Course Narrative: Patient complains of left-sided nosebleed which began half an hour ago He has had multiple prior visits for nosebleeds, and they just stopped his Plavix and he took his last dose yesterday In the ER I sprayed oxymetazoline and placed TXA coated gauze in left nostril This is rapid medical exam and triage pending full evaluation and dispo by ER provider Medications Administered Discontinued Medications Generic Name Dose Route Start Last Admin Trade Name Freq PRN Reason Stop Dose Admin Cocaine HCl 4 ml 05/12/23 15:44 05/12/23 16:02 Cocaine Hcl 4 % 4 Ml Solution TOPICAL 05/12/23 15:45 4 ml ONCE ONE Administration Protocol Oxymetazoline HCl 2 spray 05/12/23 15:11 05/12/23 16:03 Oxymetazoline Hcl 0.05 % Nasal 15 Ml [place] NOSTRIL-B 05/12/23 15:12 2 spray ONCE ONE Administration Tranexamic Acid 500 mg 05/12/23 15:11 05/12/23 16:03 Tranexamic Acid 1,000 Mg/10 Ml Vial INTRANASAL 05/12/23 15:12 500 mg ONCE ONE Administration Medical Decision Making Medical Decision Making MDM Narrative: Patient is a 72 year old assigned male at with a history of CABG, on plavix, presenting to the emergency department today with a left sided nose bleed. Patient's physical exam initially showed an anterior source of bleeding in the left nare. I explained my physical exam findings to the patient and the patient's . I consulted with Dr. Peterson and together, we used rolled cotton soaked in medical cocaine and packed the left nare. After 20 minutes, the rolled cotton was removed and replaced with no cocaine soaked rolled cotton. After an additional 30 minutes, the cotton was removed and the patient was no longer bleeding. I answered all questions asked by the patient and the patient's . I stressed the importance of the patient taking his medication as prescribed. I stressed the importance of the patient following up with his primary care provider and with his ENT. I stressed the importance of the patient returning to the emergency department immediately if his symptoms were to worsen or if he were to develop any dizziness, shortness of breath, difficulty breath ing, chest pain, blurry vision, loss of vision, nausea, vomiting, abdominal pain, fever, chills, back pain, or any other complaints. Patient and the patient's verbalized agreement and understanding with this treatment plan and discharge. Differential Diagnosis Differential Diagnoses: The differential diagnosis associated with the pr esentation includes Epistaxis Nose bleed Anterior nost bleed Posterior nose bleed Admission/Observation Consideration of admission/observation: Escalation of care including admission/observation considered Patient would have been admitted to the hospital had his clinical presentation warranted hospital admission. Independent Historian Clinical information obtained from an independent historian. History obtained from or confirmed by: Spouse (patient's provided additional history and confirmed the history provided by the patient.) Procedures Epistaxis Control Time Out Performed: Yes Nostril: Yes left Nose prepped with: Yes cocaine 4% and Yes oxymetazoline Direct inspection: Yes anterior source identified Direct inspection method: Yes otoscope Clots removed by: Yes suction Epistaxis treatment: Yes TXA soaked gauze Results of treatment: Yes bleeding controlled and Yes treatment well tolerated Complications: Yes none Critical Care Time Critical Care Time Critical Care Time: Yes Total Critical Care Time: 45 Attestation: I spent 45 minutes of Critical Care Time with this patient. This does not include time spent on separately reported billable procedures. Discharge Plan Discharge Clinical Impression: Epistaxis Patient Disposition: Home, Self-Care Instructions: Nosebleed (ED) Additional Instructions: Follow up with your ENT as scheduled. Follow up with your primary care provider. Return to the emergency department immediately if your symptoms worsen or if you develop any dizziness, shortness of breath, difficulty breathing, chest pain, blurry vision, loss of vision, nausea, vomiting, abdominal pain, fever, chills, back pain, or any other complaints. Prescriptions: No Action amlodipine 10 mg tablet 10 mg PO DAILY Qty: 90 3RF metoprolol succinate 25 mg tablet extended release 24 hr 25 mg PO DAILY Qty: 90 3RF atorvastatin 80 mg tablet 80 mg PO QPM Qty: 90 3RF clopidogrel 75 mg tablet 75 mg PO DAILY Qty: 90 3RF amoxicillin-pot clavulanate [Augmentin] 500-125 mg tablet 1 tab PO BID Qty: 5 0RF amoxicillin 500 mg capsule 500 mg PO TID Qty: 15 0RF amoxicillin-pot clavulanate 875-125 mg tablet 1 tab PO BID 7 Days Qty: 14 0RF aspirin 81 mg tablet,delayed release (DR/EC) 81 mg PO DAILY tamsulosin 0.4 mg capsule 0.4 mg PO BID Referrals: Parth Hinojosa MD [Primary Care Provider] - Interventions: ED Discharge Assessment Last Done: 05/12/23 18:16 Discharge Date/Time: 05/12/23 18:17 Print Language: Latvian
[2023-05-12] MEDS: Cocaine HCl 4 % 4 ML SOLUTION TOPICAL (16:02)
[2023-05-12] MEDS: Tranexamic Acid 1,000 MG/10 ML VIAL 500 MG INTRANASAL (16:03)
[2023-05-12] MEDS: Oxymetazoline HCl 0.05 % Nasal 15 ML SPRAY 2 SPRAY NOSTRIL-B (16:03)
== END 2023-05-12 18:17 | disposition home or self-care (01) ==
PROVIDERS: Emergency Provider Emergency Medicine Emergency Medical Services; PCP Internal Medicine
DX: R04.0 Epistaxis (principal); Z79.899 Other long term (current) drug therapy
CPT/HCPCS: 30901; 99282; 99283; 99284; C9143

== ENCOUNTER 2023-06-03 12:54 | Outpatient (AMB) | payer MEDICARE, SELFPAY ==
[2023-06-03 12:58] VITALS: BP 110/60; PULSE 62; BMI 28.2
--- NOTE | 2023-06-03 12:58 | A.OFFVIS_ITS ---
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 To recall, in 2016, he was admitted for NSTEMI. Cardiac catheterization showed culprit vessel being the venous graft to the diagonal branch and this was stented. In May 2019, another NSTEMI; underwent cardiac catheterization. Culprit lesion was vein graft to diagonal consistent with very late stent thrombosis, treated with drug-eluting stenting. Then he was having colitis symptoms and was losing weight and also had abnormal LFTs. Then off cholesterol medications and the LFTs normalized. Then we put him back on them and LFTs again started going back. Currently, he is off the Zetia on taking statins only. Recently, lot of nosebleed issues. Multiple visits to the ER. Then eventually saw ENT. With regard to the antiplatelet drugs, he is off his aspirin and just taking Plavix. No further bleeding at this time. [facility] Medical History History of [place] (myocardial infarction) Personal history of nicotine dependence CAD (coronary artery disease) Abnormal LFTs Hyperlipidemia, unspecified Essential hypertension Subsequent ST elevation (STEMI) myocardial infarction Atherosclerotic cardiovascular disease Surgical History History of endoscopy History of colonoscopy History of AAA (abdominal aortic aneurysm) repair (~2018) History of tonsillectomy History of heart artery stent History of coronary artery bypass graft (~2002) Family History Father Myocardial infarction Stroke Mother No problems noted. Social History Alcohol intake: current Alcohol intake frequency: 0-2 drinks per day Alcohol type: beer Patient Tobacco Use Status: Former Tobacco user Quit Date: 09/14/2011 Years Smoked: (former smoker - onset 15yo, 1-1.5ppd x 46yrs, 50pyh - quit 09/14/2011) Substance Use Type: Marijuana Review of Systems Const Denies chills, Denies fatigue, Denies fever(s), Denies frequent falls, Denies weakness, Denies weight gain and Denies weight loss ENT Denies dizziness Card Denies chest pain, Denies leg edema, Denies lightheadedness, Denies palpitations, Denies dyspnea and Denies dyspnea on exertion Resp Denies cough, Denies dyspnea and Denies dyspnea on exertion GI Denies hematochezia Musc Denies abnormal gait, Denies muscle weakness, Denies numbness, Denies radiating pain into limb and Denies tingling Neuro Denies abnormal gait, Denies dizziness, Denies frequent falls, Denies numbness, Denies tingling and Denies weakness Endo Denies fatigue and Denies palpitations Physical Exam Vital Signs: Last Vital Signs Pulse 62 06/03/23 12:58 BP 110/60 06/03/23 12:58 BMI result Body Mass Index 28.2 Const General: comfortable and no acute distress Orientation/consciousness: patient oriented x3 HEENT Other: Unremarkable Head: Yes normal to inspection Neck Neck: Yes normal visual inspection Chest Chest palpation & inspection: normal inspection of the chest Resp Auscultation: clear to auscultation bilaterally Cardio Palpation: normal PMI Heart sounds: S1 normal heart sound present, S2 normal heart sound present, no gallops, Murmur heart sound present systolic III/ and at the right sternal border and no rubs GI Palpation (GI): Soft to palpation Back/Spine/Pelvis Other: unremarkable Skin General skin exam: no rashes or lesions noted Neuro General: patient oriented x3 Extrem General: Yes normal to inspection Psych Mental Status: mental status grossly normal Assessment & Plan Assessment & Plan (1) Atherosclerotic cardiovascular disease: Code(s): I25.10 - Atherosclerotic heart disease of [place] [place] coronary artery without angina pectoris Plan: Last cardiac catheterization data reviewed. 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 Remains stable and no anginal symptoms. He was on long-term dual antiplatelet therapy but because of recurrent nosebleeds, he is only on Plavix for the last few weeks. He can try taking aspirin alternate days or 3 times a week. If still has any recurrent bleeding, probably just Plavix. (2) Aortic valve sclerosis: Code(s): I35.8 - Other nonrheumatic aortic valve disorders Plan: Echocardiogram shows moderate aortic valve calcification but no significant stenosis. Recheck echo before next visit. (3) Essential hypertension: Code(s): I10 - Essential (primary) hypertension Plan: Stable. No changes. He gets tiredness with higher dose of beta-blockers and gets low blood pressure with lisinopril. (4) Hyperlipidemia, unspecified: Code(s): E78.5 - Hyperlipidemia, unspecified Plan: Continue statins. With Zetia, he has had LFT issues. Overall, controlled lipids. (5) Frequent epistaxis: Code(s): R04.0 - Epistaxis Plan: Seems better. Currently only on Plavix. Try aspirin alternate days or 3 times a week. If gets recurrent bleeding, then just Plavix only. Risk benefit discus sed in detail. Orders: Orders CA echo transthoracic complete 09/30/23 I35.0 - Nonrheumatic aortic (valve) stenosis Coding Level of Care Code Est Pt Level 4 (81600) Diagnoses Atherosclerotic cardiovascular disease I25.10 Aortic valve sclerosis I35.8 Essential hypertension I10 Hyperlipidemia, unspecified E78.5 Frequent epistaxis R04.0
== END 2023-06-03 13:17 | disposition home or self-care (01) ==
PROVIDERS: PCP Internal Medicine; Visit Provider Internal Medicine
DX: I25.10 Atherosclerotic heart disease of native coronary artery without angina pectoris (principal); I35.8 Other nonrheumatic aortic valve disorders; I10 Essential (primary) hypertension; E78.5 Hyperlipidemia, unspecified; R04.0 Epistaxis
CPT/HCPCS: 99214

== ENCOUNTER → 2023-06-03 12:54 | Outpatient (BNVA) | payer MEDICARE, SELFPAY | PROVIDERS: PCP Internal Medicine; Visit Provider Internal Medicine | DX: I25.10 Atherosclerotic heart disease of native coronary artery without angina pectoris (principal); I35.8 Other nonrheumatic aortic valve disorders; I10 Essential (primary) hypertension; E78.5 Hyperlipidemia, unspecified; R04.0 Epistaxis | CPT/HCPCS: 99212 ==

== ENCOUNTER 2023-06-09 10:08 | Outpatient (REF) | payer MEDICARE, SELFPAY ==
--- NOTE | ~2023-06-09 | CT_ITS ---
EXAMINATION: CT CHEST SCREENING CLINICAL INFORMATION: Nicotine dependence. COMPARISON: CT lung screening 04/10/2022. TECHNIQUE: Multidetector volumetric CT imaging of the chest is performed without contrast using low-dose technique. Additional 2D coronal and sagittal reformatted images and axial 3D maximum intensity projection (MIP) images are generated on the CT workstation. This CT examination was performed using dose optimization techniques as appropriate, variously including the following: *Automated exposure control *Adjustment of mA and/or kV according to patient size (this includes techniques or standardized protocols for targeted exams where dose is matched to indication/reason for exam; i.e. extremities or head) *Use of iterative reconstruction technique DLP: 54 mGy-cm FINDINGS: LUNGS: Mild bronchial thickening is present with minimal emphysematous changes. There is an unchanged 3 mm right upper lobe nodule (5:179 compare prior 5:182). Some calcified granulomas are again seen at both lung bases (5:346 and 249). The lungs are otherwise clear with no evidence of inflammation or nodules concerning for malignancy. MEDIASTINUM: No mediastinal or hilar lymph nodes. Moderate hiatal hernia. Ascending aorta prominent in size at 4 cm in maximal transverse dimension. CORONARY ARTERY CALCIFICATION: Extensive. Status post median sternotomy and CABG. PLEURA: There is no pleural effusion. No pleural mass or thickening. AXILLA: No lymphadenopathy. UPPER ABDOMEN: Nine hepatic cysts are present. Partially visualized cholelithiasis. OSSEOUS STRUCTURES: Unremarkable. CT/CT lung screening IMPRESSION: Benign-appearing pulmonary nodules with no evidence of malignancy. ASSESSMENT: Lung-RADS category 2: Benign. RECOMMENDATION: Routine annual low-dose CT screening in 12 months.
== END 2023-06-09 10:09 | disposition home or self-care (01) ==
LOC: HO.CT 10:08
PROVIDERS: PCP Internal Medicine; Visit Provider Nurse Practitioner Family
DX: Z12.2 Encounter for screening for malignant neoplasm of respiratory organs (principal); F17.210 Nicotine dependence, cigarettes, uncomplicated
CPT/HCPCS: 71271

== ENCOUNTER → 2023-09-22 08:51 | Outpatient (REF) | payer MEDICARE, SELFPAY ==
--- NOTE | 2023-09-22 09:13 | CA_ITS ---
Transthoracic Echocardiogram Patient (Last, First, Middle): Mario Deng W Gender: Male Date of : 1950 Age: 73 Procedure Date: 09/22/2023 Procedure Type: Transthoracic Echocardiogram Location: OP Height: 167.64 cm Weight: 75.3 kg BSA: 1.85 m2 Heart Rate: 52 bpm BP: 138 / 68 mmHg Water Team Leader: SB Referring MD: Kurt Wright MD Symptoms: I35.0 - Nonrheumatic aortic (valve) stenosis Study Quality: Adequate ECG Rhythm: Bradycardia Conclusions: - The left ventricular systolic function is normal. The calculated ejection fraction is 66% by biplane method. - The basal inferior and basal inferolateral segments are hypokinetic. - There is moderate calcification of the aortic valve. - There is mild dilatation of the ascending aorta measuring 4.00 cm. Findings Left Ventricle Normal left ventricular cavity size. The left ventricular systolic function is normal. The calculated ejection fraction is 66% by biplane method. There is no evidence of regional wall motion abnormalities. Evidence suggests grade I (mild) diastolic dysfunction. There is moderate septal asymmetric hypertrophy. Wall Motion Rest Echo Findings The basal inferior and basal inferolateral segments are hypokinetic. Right Ventricle Normal right ventricular cavity size. There is mildly decreased right ventricular systolic function. Atria Both atria are normal in size. Aortic Valve There is moderate calcification of the aortic valve. There is no aortic valve regurgitation. No significant aortic stenosis. Mitral Valve There is mild mitral annular calcification. There is trace mitral valve regurgitation. There is no mitral valve stenosis. Pulmonic Valve There is trace pulmonic valve regurgitation. Tricuspid Valve There is trace tricuspid valve regurgitation. There is no evidence of pulmonary hypertension. Great Vessels There is mild dilatation of the ascending aorta measuring 4.00 cm. Small plaque is seen in the sinuses of Valsalva. Venous The inferior vena cava is normal in size and collapses greater than 50% with inspiration. Pericardium/Pleural There is no evidence of pericardial effusion. Prior Study Comparison No significant change compared to prior study dated: 06/26/2021. Wall motion findings noted in prior images. Measurements 2D Linear Measurements IVSd: 0.86 0.6-0.9/0.6-1.0 cm LVIDd: 4.56 3.9-5.3/4.2-5.9 cm LVIDd Index: 2.46 2.4-3.2/2.2-3.1 cm/m2 LVIDs: 2.95 2.0-3.6 cm LVPWd: 0.69 0.7-1.1 cm Ao Root: 3.00 2.1-3.5 cm LA Diam: 3.80 2.7-3.8/3.0-4.0 cm LAIDs Index: 2.05 1.5-2.3 cm/m2 LV Mass: 138.15 67-162/88-224 g LV Mass Index: 74.67 43-95/49-115 g/m2 LVOT Diam: 2.00 3.0+(-)1.3 cm 2D Systolic Function EF 4C: 69.30 >55% EF 2C: 63.00 >55% EF BiP: 65.80 >55% Mitral Valve MV VTI: 0.33 MV Pk Hakan: 0.87 MV Mn Hakan: 0.44 MV Pk Grad: 3.00 MV Mn Grad: 1.00 MV Pk E: 0.83 MV PK A: 0.79 MV Decel Time: 171.00 E/A: 1.00 E'Lateral: 12.40 E'Medial: 5.98 E/E' Med: 13.90 E/E' Lat: 6.70 PHT: 50.00 MVA PHT: 4.40 MVA Continuity: 2.35 Decel Sutton: 4.87 Aortic Valve AoV Pk Hakan: 2.27 AoV Mn Hakan: 1.54 AoV VTI: 0.53 AoV Pk Grad: 21.00 Aov Mn Grad: 11.00 DEONNA Cont.VTI: 1.48 LVOT LVOT Pk Hakan: 1.19 LVOT Mn Hakan: 0.69 LVOT VTI: 0.25 LVOT Pk Grad: 6.00 LVOT Mn Grad: 2.00 LVOT Diam: 2.00 LVOT Area: 3.14 Diastolic Function MV Pk E: 0.83 MV Pk A: 0.79 E/A: 1.00 E'Medial: 5.98 E/E' Med: 13.90 E' Laterial: 12.40 E/E' Lat: 6.70 Right Ventricle TAPSE (mm): 16.60 TVS' Hakan: 9.57 Tricuspid Valve TR Pk Hakan: 2.28 TR Pk Grad: 21.00 Great Vessels Aorta Ao Root-2D: 3.00 2.0-3.7 cm Ao Asc: 4.00 2.1-3.4 cm Pulmonary Valve PV Pk Hakan: 1.25 Peak PV Grad: 6.00 KS Pk Hakan: 1.48 Updated in Other Vendor System with Status of Final Kurt Wright MD electronically signed on 09/24/2023 10:54:35 AM with status of Final
== END ==
LOC: HO.CARD 08:51
PROVIDERS: PCP Internal Medicine; Visit Provider Internal Medicine
DX: I35.0 Nonrheumatic aortic (valve) stenosis (principal)
CPT/HCPCS: 93306

== ENCOUNTER → 2023-09-22 09:13 | Outpatient (BNV) | payer MEDICARE, SELFPAY | PROVIDERS: PCP Internal Medicine; Visit Provider Internal Medicine | DX: I42.2 Other hypertrophic cardiomyopathy (principal); I35.8 Other nonrheumatic aortic valve disorders; I34.81 Nonrheumatic mitral (valve) annulus calcification | CPT/HCPCS: 93306 ==

== ENCOUNTER 2023-11-02 12:22 | Outpatient (REF) | payer MEDICARE, SELFPAY ==
[2023-11-02 12:26] LABS: MANUAL DIFF FLAG NO
[2023-11-02 12:42] LABS: Basophils Percent Auto 0.5 % (0-2); Eosinophils Absolute Auto 0.6 X10*3/uL (0.0-0.4); Hematocrit 42.7 % (42.0-52.0); Hemoglobin 14.4 g/dl (14.0-18.0); Imm Gran Abs Auto 0.02 X10*3/uL (0.00-0.03); Imm Gran Pct Auto 0.3 % (0.0-0.4); Lymphocytes Absolute Auto 1.6 X10*3/uL (1.2-4.9); Lymphocytes Percent Auto 25.3 % (20-40); Mean Corpuscular HGB Conc 33.7 g/dl (31.0-36.0); Mean Corpuscular Hemoglobin 31.6 pg (27.0-33.0); Mean Corpuscular Volume 93.8 fL (80.0-98.0); Mean Platelet Volume 10.8 fL (9.4-12.4); Monocytes Absolute Auto 0.6 X10*3/uL (0.1-1.2); Neutrophils Absolute Auto 3.5 x10*3/uL (2.0-8.3); Neutrophils Percent Auto 55.9 % (45-73); Platelet Count 199 X10*3/uL (160-400); Red Blood Count 4.55 X10*6/uL (4.60-5.80); Red Cell Distribution Width 14.6 % (11.0-16.0); White Blood Count 6.3 X10*3/uL (4.8-10.8)
[2023-11-02 12:59] LABS: Alanine Aminotransferase 18 U/L (0-40); Alkaline Phosphatase 59 U/L (39-117); Anion Gap 12 (12-20); Aspartate Amino Transferase 19 U/L (5-37); Bilirubin Total 0.8 mg/dL (0.0-1.0); Blood Urea Nitrogen 11 mg/dL (9-16); Calcium 9.3 mg/dL (8.4-10.2); Carbon Dioxide 27 mmol/L (22-29); Chloride 105 mmol/L (96-108); Cholesterol 120 mg/dL (<200); Estimated Glomerular Filt Rate > 60; Glucose Fasting 102 mg/dL (60-99); HDL Cholesterol 41 mg/dL (>40); LDL Cholesterol Calculated 67 mg/dL (<100); Potassium 3.9 mmol/L (3.3-5.1); Sodium 140 mmol/L (135-145); Total Protein 6.5 g/dL (6.5-8.0); Triglycerides 62 mg/dL (<150)
[2023-11-02 13:01] LABS: Appearance Urine Clear; Color Urine Yellow; Glucose Urine UA Negative (Negative); Leukocyte Esterase Urine Negative (Negative); Nitrite Urine Negative (Negative); Urine Blood Negative (Negative); Urine Ketones Negative (Negative); Urine Protein Negative (Neg-Trace)
[2023-11-02 13:04] LABS: Bacteria Urine None Seen (None Seen); Hyaline Casts Urine 0-2 /LPF (0-2); RBC Urine 0-2 /HPF (0-2); Squamous Epithelial Cell Urine 0-2 /HPF (0-2); WBC Urine 0-5 /HPF (0-5)
[2023-11-02 15:38] LABS: PSA,Total (Free>4and<10) 5.23 ng/mL (0.00-4.00)
[2023-11-04 10:33] LABS: Free Prostate Spec Ag 1.3 ng/mL; Percent Free Prostate Spec Ag 27 % (calc) (>25); Prostate Specific Ag Total 4.8 ng/mL (< OR = 4.0)
== END 2023-11-02 12:23 | disposition home or self-care (01) ==
LOC: HO.LNP 12:22
PROVIDERS: Visit Provider Internal Medicine
DX: E78.00 Pure hypercholesterolemia, unspecified (principal); I10 Essential (primary) hypertension; N40.0 Benign prostatic hyperplasia without lower urinary tract symptoms; Z12.5 Encounter for screening for malignant neoplasm of prostate
CPT/HCPCS: 80053; 80061; 81001; 84153; 84154; 85025

== ENCOUNTER 2023-11-07 04:58 | Emergency (ER) | payer MEDICARE, SELFPAY ==
[2023-11-07] VITALS (26 sets, daily range): BP systolic 67–150; BP diastolic 31–85; PULSE 52–74; RESP 12–18; TEMP 35.7–36.3; O2SAT 95–100; BMI 26.6
--- NOTE | 2023-11-07 | ECG_ITS ---
Test Reason : CHEST PAIN Blood Pressure : / mmHG Vent. Rate : 065 BPM Atrial Rate : 065 BPM P-R Int : 150 ms QRS Dur : 086 ms QT Int : 426 ms P-R-T Axes : 063 016 -14 degrees QTc Int : 443 ms Normal sinus rhythm ST elevation consider lateral injury or acute infarct ACUTE ND / STEMI Abnormal ECG When compared with ECG of 07-NOV-2023 04:59, ST more elevated in Lateral leads Referred By: Madi Zavala Electronically Signed By:HUNG CORONA
--- NOTE | 2023-11-07 | ECG_ITS ---
Test Reason : CHEST PAIN Blood Pressure : / mmHG Vent. Rate : 056 BPM Atrial Rate : 056 BPM P-R Int : 162 ms QRS Dur : 086 ms QT Int : 428 ms P-R-T Axes : 057 000 -03 degrees QTc Int : [address] elevation in Lateral leads ACUTE ID / STEMI Abnormal ECG When compared with ECG of 14-JUN-2019 00:56, ST elevation now present in Lateral leads Non-specific change in ST segment in Inferior leads ST now depressed in Anterior leads T wave inversion now evident in Inferior leads Referred By: Madi Zavala Electronically Signed By:HUNG CORONA
--- NOTE | ~2023-11-07 | XR_ITS ---
EXAMINATION: XR CHEST CLINICAL INFORMATION: Chest pain COMPARISON: 06/09/2023 TECHNIQUE: Frontal view of the chest was obtained. FINDINGS: Lung volumes are symmetric. No focal consolidation is seen. No evidence of pneumothorax, pleural effusion, or pulmonary edema. Cardiac size is within normal limits. Sternal wires and mediastinal clips are noted. Calcification is present at the aortic arch. No acute osseous findings are seen. XR/XR chest 1V IMPRESSION: No acute cardiopulmonary findings. Electronically signed by: Leroy Kennedy MD 11/07/2023 06:25 AM EDT RP
--- NOTE | 2023-11-07 05:01 | ED_ITS ---
HPI - Chest Pain General Chief Complaint: Chest Pain Stated Complaint: L side CP hx 3 VA , PO THC / beer Time Seen by Provider: 11/07/23 05:01 Source: patient Mode of arrival: EMS Limitations: no limitations History of Present Illness ED Provider: angelica HPI narrative: Patient' with history of coronary artery disease CABG 2016 05 vs status post stenting in the venous graft last one was in 05/2019 was in good health for last 4 years woke up at 03:45 with chest pain pressure-like feeling with cold sweats radiating to the left arm patient received aspirin by EMS on arrival still having chest pain blood pressure 150/85 pulse rate 60 saturating 100% on room air EKG showed ST elevation in 1 , 2 and aVL Related Data Home Medications ?Medication ?Instructions ?Recorded ?Confirmed aspirin 81 mg tablet,delayed 81 mg PO DAILY 01/02/20 06/03/23 release alfuzosin 10 mg tablet,extended 10 mg PO DAILY 06/03/23 06/03/23 release 24 hr Previous Rx's ?Medication ?Instructions ?Recorded atorvastatin 80 mg tablet 80 mg PO QPM #90 tabs 12/14/22 clopidogrel 75 mg tablet 75 mg PO DAILY #90 tabs 01/14/23 amlodipine 10 mg tablet 10 mg PO DAILY #90 tabs 06/15/23 metoprolol succinate 25 mg 25 mg PO DAILY #90 tabs 06/15/23 tablet,extended release 24 hr Allergies Allergy/AdvReac Type Severity Reaction Status Date / Time ezetimibe [From Zetia] AdvReac Elevated Verified 11/07/23 05:10 LFTS Review of Systems 2 Review of Systems: Yes all other systems are reviewed and are negative [facility] Past Medical History Medical History History of VA (myocardial infarction) Personal history of nicotine dependence CAD (coronary artery disease) Abnormal LFTs Hyperlipidemia, unspecified Essential hypertension Subsequent ST elevation (STEMI) myocardial infarction Atherosclerotic cardiovascular disease Surgical History History of endoscopy History of colonoscopy History of AAA (abdominal aortic aneurysm) repair (~2018) History of tonsillectomy History of heart artery stent History of coronary artery bypass graft (~2002) Family History Family History Father Myocardial infarction Stroke Mother No problems noted. Social History Social History Alcohol intake: current Alcohol intake frequency: 0-2 drinks per day Alcohol type: beer Patient Tobacco Use Status: Former Tobacco user Years Smoked: (former smoker - onset 15yo, 1-1.5ppd x 46yrs, 50pyh - quit 09/14/2011) Smoked in Last 30 Days: No Use of substances other than those prescribed or required for medical reasons: Yes Substance Use Type: Marijuana Advance Directives: No Advance Directives Information Provided: No Do you have a plan to hurt others: No Plan Physical Exam 2 Vital Signs: Vital Signs: Last Vital Signs Temp 96.7 F L 11/07/23 06:29 Pulse 65 11/07/23 06:49 Resp 18 11/07/23 06:49 BP 115/62 11/07/23 06:49 Pulse Ox 100 11/07/23 06:49 O2 Del Method Nasal Cannula 11/07/23 06:49 O2 Flow Rate 2 11/07/23 06:49 BMI result Body Mass Index 26.6 Appearance: Alert. Oriented X3. No acute distress. Eyes: No pallor or icterus ENT: Pharynx normal. Oral Mucosa moist Neck: Normal inspection. Neck supple. CVS: Normal heart rate and rhythm. Pulses normal. Respiratory: No respiratory distress. Equal air entry bilateral, no wheezing/rales/rhonchi Abdomen: Soft and nontender. Bowel sounds are present, no mass palpable, no CVA tenderness Skin: Skin warm and dry. Normal skin color. Normal skin turgor. Extremities: No lower extremity edema. No calf tenderness Neuro: Oriented X 3. No motor deficit. No sensory deficit.No cerebellar signs , cranial nerves II-XII intact Medications Administered Generic Name Dose Route Start Last Admin Trade Name Freq PRN Reason Stop Dose Admin Nitroglycerin/Dextrose 100 mg in 250 mls @ 0 mls/hr 11/07/23 05:45 11/07/23 06:23 Nitroglycerin/D5w IVCONT 40 mcg/min .Q0M RICHY 6 mls/hr Titration Protocol Per Protocol Heparin Sodium/Sodium Chloride 25,000 unit in 250 mls @ 0 mls/hr 11/07/23 06:45 11/07/23 06:53 Heparin Sodium,Porcine/1/2ns IVCONT 12 units/kg/hr .Q0M RICHY 8.99 mls/hr Administration Protocol Per Protocol Nitroglycerin 0.4 mg 11/07/23 05:16 11/07/23 05:23 Nitroglycerin 0.4 Mg Tab.Subl SUBLINGUAL 0.4 mg Q5MX3 PRN Administration Chest Pain Discontinued Medications Generic Name Dose Route Start Last Admin Trade Name Frezurdo PRN Reason Stop Dose Admin Heparin Sodium (Porcine) 5,000 unit 11/07/23 05:16 11/07/23 05:23 Heparin Sodium,Porcine 5,000 Unit/Ml Vial IVPUSH 11/07/23 05:17 5,000 unit ONCE ONE Administration Sodium Chloride 1,000 mls @ 999 mls/hr 11/07/23 05:27 11/07/23 05:58 Ns IV 11/07/23 06:27 Infused .Q1H1M ONE Infusion Sodium Chloride 1,000 mls @ 999 mls/hr 11/07/23 05:38 11/07/23 05:58 Ns IV 11/07/23 06:38 Infused .Q1H1M ONE Infusion Morphine Sulfate 4 mg 11/07/23 05:18 11/07/23 05:22 Morphine Sulfate 4 Mg/Ml Cartridge IVPUSH 11/07/23 05:19 4 mg ONCE ONE Administration Protocol Ondansetron HCl 4 mg 11/07/23 05:18 11/07/23 05:22 Ondansetron Hcl 4 Mg/2 Ml Vial IVPUSH 11/07/23 05:19 4 mg ONCE ONE Administration Tenecteplase 40 mg 11/07/23 06:31 11/07/23 06:36 Tenecteplase 50 Mg/10 Ml Kit IVPUSH 11/07/23 06:32 40 mg ONCE ONE Administration Ticagrelor 180 mg 11/07/23 05:16 11/07/23 05:23 Ticagrelor 90 Mg Tablet PO 11/07/23 05:17 180 mg ONCE ONE Administration Medical Decision Making Medical Decision Making MDM Narrative: Patient's ST-elevation lateral leads with significant history of coronary artery disease status post bypass and stenting case discussed with Dr. Perry driver's license reviewing officer at [facility] accepted the patient for transfer. Patient received Brilinta 180 mg heparin 5000 unit nitroglycerin and aspirin patient is still having chest pain will start on nitroglycerin drip patient's blood pressure dropped to 67/30 after morphine and 2 nitroglycerin sublingually still complaining of chest pain pressure 110/60 after IV fluids 548 am patient is still having chest pain 5/10 with left arm heaviness started on nitroglycerin drip at low rate because of hypotension received IV fluids still awaiting for the ALS ambulance for transfer to microbiological lab technician 630am patient is still complaining of chest pain which has not changed in character on nitro glycerin drip repeat EKG showed more ST-elevation in lateral leads . Patient does not have any recent GI bleed or nosebleed case discussed with driver's license reviewing officer will give TNK for now unable to get ALS ambulance unable to get air lift BP 116/54, pr 65 saturating 98% Differential Diagnosis Differential Diagnoses: The differential diagnosis associated with the presentation includes Admission/Observation Consideration of admission/observation: Escalation of care including admission/observation considered Lab Data MDM Lab Attestation statement: I reviewed the patient's lab results. 11/07/23 05:23 11/07/23 05:23 Labs: Lab Results 11/07/23 Range/Units 05:23 WBC 6.4 (4.8-10.8) X10*3/uL RBC 4.50 L (4.60-5.80) X10*6/uL Hgb 14.1 (14.0-18.0) g/dl Hct 40.9 L (42.0-52.0) % MCV 90.9 (80.0-98.0) fL MCH 31.3 (27.0-33.0) pg MCHC 34.5 (31.0-36.0) g/dl RDW 14.3 (11.0-16.0) % Plt Count 199 (160-400) X10*3/uL MPV 10.5 (9.4-12.4) fL Immature Gran % (Auto) 0.2 (0.0-0.4) % Neut % (Auto) 55.2 (45-73) % Lymph % (Auto) 27.4 (20-40) % Letcher % (Auto) 8.1 (2-11) % Eos % (Auto) 8.3 H (0-4) % Baso % (Auto) 0.8 (0-2) % Lymph # (Auto) 1.8 (1.2-4.9) X10*3/uL Letcher # (Auto) 0.5 (0.1-1.2) X10*3/uL Eos # (Auto) 0.5 H (0.0-0.4) X10*3/uL Baso # (Auto) 0.1 (0.0-0.2) X10*3/uL Abs Immat Gran (auto) 0.01 (0.00-0.03) X10*3/uL Absolute Neuts (auto) 3.6 (2.0-8.3) x10*3/uL Absolute Nucleated RBC 0.000 (0.0-0.012) X10*3/uL Nucleated RBC % (auto) 0.0 (0.0-0.2) /100WBC PT 11.2 (11.1-13.3) SEC INR 0.9 (0.9-1.1) APTT 25.7 L (26.0-36.8) SEC Sodium 141 (135-145) mmol/L Potassium 3.7 (3.3-5.1) mmol/L Chloride 107 (96-108) mmol/L Carbon Dioxide 24 (22-29) mmol/L Anion Gap 14 (12-20) BUN 13 (9-16) mg/dL Creatinine 0.93 (0.5-1.4) mg/dL Estim Creat Clear Calc 64.7 Estimated GFR > 60 Random Glucose 134 H (60-115) mg/dL Calcium 9.4 (8.4-10.2) mg/dL Magnesium 2.0 (1.6-2.6) mg/dL Total Bilirubin 0.5 (0.0-1.0) mg/dL AST 20 (5-37) U/L ALT 20 (0-40) U/L Alkaline Phosphatase 56 (39-117) U/L Troponin I High Sens 12.2 (<3.5-35.0) ng/L Total Protein 6.5 (6.5-8.0) g/dL Albumin 4.0 (3.5-5.0) g/dL COVID-19 (FRANCESCO) Negative (Negative) COVID-19 Clin Com See Note Independent Interpretation I performed an independent interpretation of an: EKG and Plain X-Ray Interpretation: Sinus bradycardia heart rate [address]-elevation 2 mm in lead 1 lead to aVL with reciprocal changes in lead 3 AVF V3 and V4 impression STEMI 0619; sinus rhythm heart rate [address] elevation lead 1 aVL V3 V4 V5 V6 with reciprocal changes in lead 3 and AVF Radiology Impression Discussion of test interpretation with radiology: I have reviewed the radiologist's reading. Independent Historian Clinical information obtained from an independent historian. History obtained from or confirmed by: Spouse External Record Review External record reviewed: Inpatient record Critical Care Time Critical Care Time Critical Care Time: Yes Total Critical Care Time: 85 Attestation: The patient was critically ill with a high probability of imminent or life threatening deterioration. I spent greater than 90??minutes of discontinuous time evaluating the patient,delivering critical care at the bedside, discussing and evaluating pertinent data with consultants. Critical care time does not include time spent performing separately billable procedures or teaching. Total time spent performing critical care was 85???minutes. 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 Perry Prescriptions: No Action atorvastatin 80 mg tablet 80 mg PO QPM Qty: 90 3RF clopidogrel 75 mg tablet 75 mg PO DAILY Qty: 90 3RF amlodipine 10 mg tablet 10 mg PO DAILY Qty: 90 3RF metoprolol succinate 25 mg tablet extended release 24 hr 25 mg PO DAILY Qty: 90 3RF aspirin 81 mg tablet,delayed release (DR/EC) 81 mg PO DAILY alfuzosin 10 mg tablet extended release 24 hr 10 mg PO DAILY Rx Instructions: administer after the same meal each day Print Language: Faroese
[2023-11-07] MEDS: Nitroglycerin 0.4 MG TAB.SUBL SUBLINGUAL ×2 (05:18→05:23)
[2023-11-07] MEDS: ondansetron HCL 4 MG/2 ML VIAL IVPUSH (05:22)
[2023-11-07] MEDS: Morphine Sulfate 4 MG/ML CARTRIDGE IVPUSH (05:22)
[2023-11-07] MEDS: Ticagrelor 90 MG TABLET 180 MG PO (05:23)
[2023-11-07] MEDS: Heparin Sodium,Porcine 5,000 UNIT/ML VIAL 5000 UNIT IVPUSH (05:23)
[2023-11-07 05:28] LABS: Basophils Absolute Auto 0.1 X10*3/uL (0.0-0.2); Basophils Percent Auto 0.8 % (0-2); Eosinophils Absolute Auto 0.5 X10*3/uL (0.0-0.4); Eosinophils Percent Auto 8.3 % (0-4); Hematocrit 40.9 % (42.0-52.0); Hemoglobin 14.1 g/dl (14.0-18.0); Imm Gran Abs Auto 0.01 X10*3/uL (0.00-0.03); Imm Gran Pct Auto 0.2 % (0.0-0.4); Lymphocytes Absolute Auto 1.8 X10*3/uL (1.2-4.9); Lymphocytes Percent Auto 27.4 % (20-40); MANUAL DIFF FLAG NO; Mean Corpuscular HGB Conc 34.5 g/dl (31.0-36.0); Mean Corpuscular Hemoglobin 31.3 pg (27.0-33.0); Mean Corpuscular Volume 90.9 fL (80.0-98.0); Mean Platelet Volume 10.5 fL (9.4-12.4); Monocytes Absolute Auto 0.5 X10*3/uL (0.1-1.2); Monocytes Percent Auto 8.1 % (2-11); Neutrophils Absolute Auto 3.6 x10*3/uL (2.0-8.3); Neutrophils Percent Auto 55.2 % (45-73); Platelet Count 199 X10*3/uL (160-400); Red Cell Distribution Width 14.3 % (11.0-16.0); White Blood Count 6.4 X10*3/uL (4.8-10.8)
--- NOTE | 2023-11-07 05:28 | MHC.EDTECH ---
Patient was biba from home ,ekg taken and was read by Provider ,vitals taken ,Patient was hooked up to monitor tech ,blood drawn ,and covid swab collected all sent to lab .
[2023-11-07 05:35] LABS: INTERNATIONAL NORM RATIO 0.9 (0.9-1.1); Prothrombin Time 11.2 SEC (11.1-13.3)
[2023-11-07] MEDS: 0.9 % Sodium Chloride 1,000 ML 999 ML IV ×2 (05:35→05:44)
[2023-11-07 05:37] LABS: Partial Thromboplastin Time 25.7 SEC (26.0-36.8)
[2023-11-07 05:40] LABS: COVID-19 Test Negative (Negative); IDNOW Serial# 152EDE1D
--- NOTE | 2023-11-07 05:41 | PC.NURSE ---
Called Armando for update on pt transfer to [facility], again state they have available ALS crews and other agencies they have reached out to also do not have available ALS crews at this time.
[2023-11-07 05:45] LABS: Alanine Aminotransferase 20 U/L (0-40); Alkaline Phosphatase 56 U/L (39-117); Anion Gap 14 (12-20); Aspartate Amino Transferase 20 U/L (5-37); Bilirubin Total 0.5 mg/dL (0.0-1.0); Blood Urea Nitrogen 13 mg/dL (9-16); Calcium 9.4 mg/dL (8.4-10.2); Carbon Dioxide 24 mmol/L (22-29); Chloride 107 mmol/L (96-108); Creatinine Clr Calc Pharmacy 64.7; Estimated Glomerular Filt Rate > 60; Glucose Random 134 mg/dL (60-115); Potassium 3.7 mmol/L (3.3-5.1); Sodium 141 mmol/L (135-145); Total Protein 6.5 g/dL (6.5-8.0)
--- NOTE | 2023-11-07 05:47 | PC.NURSE ---
Juanita made x 2 to call report to [facility] and Spring Inspector, no answer.
[2023-11-07 05:48] LABS: Troponin-I High Sensitivity 12.2 ng/L (<3.5-35.0)
--- NOTE | 2023-11-07 05:50 | PC.NURSE ---
Pt became acutely hypotensive after Nitro x 2 and Morphine, IVF given for support and pt placed in trendelenburg position. SBP improved.
[2023-11-07] MEDS: Nitroglycerin/D5W 100 MG/250 ML INFUS..BTL IVCONT (05:54)
--- NOTE | 2023-11-07 05:55 | PC.NURSE ---
Verbal order from MD Zavala for intial starting dose of nitro drip at 1/2 baseline protocol d/t hypotension
--- NOTE | 2023-11-07 06:03 | PC.NURSE ---
Continuing with pt in trend position, SBP mainta
--- NOTE | 2023-11-07 06:05 | MHC.EDTECH ---
KAREN Gonzalez is aware that we are unable to get oral or axallery temp ,and Patient cannot be move around to get rectal temp at this time ,so temporal temp is being done ,and its reading low .
--- NOTE | 2023-11-07 06:08 | PC.NURSE ---
Titrted Nitro for continued pain with stable BP
--- NOTE | 2023-11-07 06:29 | MHC.EDTECH ---
2ND EKG TAKEN AND WAS READ BY PROVIDER .
[2023-11-07] MEDS: Tenecteplase 50 MG/10 ML KIT 40 MG IVPUSH (06:36)
--- NOTE | 2023-11-07 06:40 | PC.NURSE ---
Pt vitals stable s charted, remains in 7/10 pain despite measures taken. Additional medication given per orders, Nitro drip increased with stable SBP.
[2023-11-07] MEDS: Heparin Sodium,Porcine/1/2NS 25,000 UNIT/250 ML IV.SOLN 8.99 UNIT IVCONT (06:53)
--- NOTE | 2023-11-07 07:24 | PC.NURSE ---
Call placed to [facility]: Unit [address] and spoke with KAREN Billings. RN to RN report given. Awa given the opportunity for questions and all questions answered to Belkis satisfaction.
--- NOTE | 2023-11-07 07:26 | PC.NURSE ---
Care of Pt assumed at change of shift. Pt is in modified trendelenburg position. VSS, A&Ox3 ST elevations noted to leads 1, 2, and AVL Skin is warm and dry, no diaphoresis noted at this time. Color is pink. Breaths are slow, even, and unlabored. O2 @ 2L for comfort. Speech is clear, concise, and unlabored. Pt c/o pain to anterior chest with radiation to bilat arms, mostly left side. Pain is 8/10 with a heavy sensation. Heparin gtt @ 12 units/kg/hr Nitro gtt @ 40 mcg/hr Family at bedside. Awaiting ALS transports.
[2023-11-07] MEDS: fentaNYL citrate/PF 100 MCG/2 ML VIAL 50 MCG IVPUSH (07:53)
--- NOTE | 2023-11-07 08:22 | PC.NURSE ---
Belongings left behind, labeled and sent to security. Message left on home phone
== END 2023-11-07 09:00 | disposition short-term general hospital (02) ==
PROVIDERS: Internal Medicine; Emergency Provider Emergency Medicine Emergency Medical Services; PCP Internal Medicine
DX: I21.3 ST elevation (STEMI) myocardial infarction of unspecified site (principal); R07.89 Other chest pain; I25.10 Atherosclerotic heart disease of native coronary artery without angina pectoris; R11.2 Nausea with vomiting, unspecified; Z11.52 Encounter for screening for COVID-19; Z79.899 Other long term (current) drug therapy
CPT/HCPCS: 71045; 80053; 83735; 84484; 85025; 85610; 85730; 87635; 93005; 96361; 96374; 96375; 99285; J1644; J2270; J2305; J2405; J3010; J3101

== ENCOUNTER 2023-11-16 09:54 | Outpatient (AMB) | payer MEDICARE, SELFPAY ==
--- NOTE | 2023-11-16 09:57 | A.OFFVIS_ITS ---
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 To recall, in 2016, he was admitted for NSTEMI. Cardiac catheterization showed culprit vessel being the venous graft to the diagonal branch and this was stented. In May 2019, another NSTEMI; underwent cardiac catheterization. Culprit lesion was vein graft to diagonal consistent with very late stent thrombosis, treated with drug-eluting stenting. He had yet another STEMI this month leading to catheterization. Again, vein graft to diagonal was stented. The occlusion was distal to the prior stent. 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 Otherwise, he has had issues with abnormal LFTs and was briefly off cholesterol medications but then back on them again. No longer on Zetia. He has had some nosebleed issues few months back but nothing recently. That time, antiplatelet regimen was briefly cut back but for the last several months, he states he was taking both aspirin and Plavix without any issues. [facility] Medical History (Updated 11/16/23 @ 11:07 by Kurt Wright MD) History of DC (myocardial infarction) Personal history of nicotine dependence CAD (coronary artery disease) Abnormal LFTs Hyperlipidemia, unspecified Essential hypertension Subsequent ST elevation (STEMI) myocardial infarction Atherosclerotic cardiovascular disease Surgical History (Updated 11/16/23 @ 10:03 by Eileen Rapp CMA) History of cardiac cath History of endoscopy History of colonoscopy History of AAA (abdominal aortic aneurysm) repair (~2018) History of tonsillectomy History of heart artery stent History of coronary artery bypass graft (~2002) Family History Father Myocardial infarction Stroke Mother No problems noted. Social History Alcohol intake: current Alcohol intake frequency: 0-2 drinks per day Alcohol type: beer Patient Tobacco Use Status: Former Tobacco user Years Smoked: (former smoker - onset 15yo, 1-1.5ppd x 46yrs, 50pyh - quit 09/14/2011) Substance Use Type: Marijuana Review of Systems Const Denies chills, Denies fatigue, Denies fever(s), Denies weight gain and Denies w eight loss ENT Denies dizziness Card Denies chest pain, Denies leg edema, Denies lightheadedness, Denies palpitations, Denies dyspnea on exertion, Denies orthopnea and Denies other Resp Denies cough and Denies dyspnea on exertion GI Denies hematochezia and Denies change in stool character Musc Denies abnormal gait, Denies muscle weakness, Denies numbness, Denies radiating pain into limb and Denies tingling Neuro Denies abnormal gait, Denies dizziness, Denies numbness and Denies tingling Endo Denies fatigue and Denies palpitations Physical Exam Vital Signs: Last Vital Signs Pulse 66 11/16/23 10:02 BP 106/54 L 11/16/23 10:02 BMI result Body Mass Index 26.5 Const General: comfortable and no acute distress Orientation/consciousness: patient oriented x3 HEENT Other: Unremarkable Head: Yes normal to inspection Neck Neck: Yes normal visual inspection Chest Chest palpation & inspection: normal inspection of the chest Resp Auscultation: clear to auscultation bilaterally Cardio Palpation: normal PMI Heart sounds: S1 normal heart sound present, S2 normal heart sound present, no gallops, Murmur heart sound present systolic III/ and at the right sternal border and no rubs GI Palpation (GI): Soft to palpation Back/Spine/Pelvis Other: unremarkable Skin Other: Bruising in different parts of the body. General skin exam: no rashes or lesions noted Neuro General: patient oriented x3 Extrem Other: Left upper extremity swelling with bruising. General: Yes normal to inspection Psych Mental Status: mental status grossly normal Assessment & Plan Assessment & Plan (1) Atherosclerotic cardiovascular disease: Code(s): I25.10 - Atherosclerotic heart disease of [place] coronary artery without angina pectoris Category: Medical Plan: Cardiac catheterization data reviewed. Severe [place] disease. ALBARRAN to LAD is patent. Vein graft to PDA is occluded. Radial to OM2 is patent. In the vein graft to 1st diagonal, occlusion distal to prior stent. Thought to be very late stent thrombosis. Continue long-term aspirin/Plavix. If recurrent nosebleeds, will need to see ENT. Otherwise, advised to stop marijuana use. (2) Ischemic cardiomyopathy: Code(s): I25.5 - Ischemic cardiomyopathy Category: Medical Plan: Echocardiogram at [facility] with LVEF of 35-40% with wall motion abnormalities from underlying coronary disease. We can recheck before next visit. (3) Aortic valve sclerosis: Code(s): I35.8 - Other nonrheumatic aortic valve disorders Category: Medical Plan: Echocardiogram shows moderate aortic valve calcification but no significant stenosis. (4) Essential hypertension: Code(s): I10 - Essential (primary) hypertension Category: Medical Plan: In the past, had reported tiredness with higher dose of beta-lyly as well as low blood pressure with lisinopril. However, after the reason stable admission changes have been made. We will monitor. (5) Hyperlipidemia, unspecified: Code(s): E78.5 - Hyperlipidemia, unspecified Category: Medical Plan: Continue statins. With Zetia, he has had LFT issues. Overall, controlled lipids. LDL at [facility] 56 mg/dL. Triglycerides 31 mg/dL. (6) Hematoma: Code(s): T14.8XXA - Other injury of unspecified body region, initial encounter Category: Medical Plan: Groin hematoma note noted. No obvious bruit. Discussed with Interventional and we will plan to get an ultrasound. (7) Left arm swelling: Code(s): M79.89 - Other specified soft tissue disorders Category: Medical Plan: Suspected to be due to infiltration in the setting of anticoagulation. Ultrasound at [facility] with no evidence of venous thrombosis. Arm elevation and hopefully it will improve. (8) Frequent epistaxis: Code(s): R04.0 - Epistaxis Category: Medical Plan: If recurs, consult ENT. Plan Total time spent including review of [facility] records, counseling, documentation, discussion with Interventional, coordination of care-60 minutes. Orders: Orders US arterial duplex LE RT Today I72.4 - Aneurysm of artery of lower extremity CA echo transthoracic complete 4 Weeks I25.10 - Atherosclerotic heart disease of [place] coronary artery without angina pectoris Medications: Changed From metoprolol succinate ER 25 mg PO DAILY 90 tabs 3RF To metoprolol succinate ER 50 mg PO DAILY Coding Level of Care Code Est Pt Level 5 (55801) Diagnoses Atherosclerotic cardiovascular disease I25.10 Ischemic cardiomyopathy I25.5 Aortic valve sclerosis I35.8 Essential hypertension I10 Hyperlipidemia, unspecified E78.5 Hematoma T14.8XXA Left arm swelling M79.89 Frequent epistaxis R04.0
[2023-11-16 10:02] VITALS: BP 106/54; PULSE 66; BMI 26.5
== END 2023-11-16 10:43 | disposition home or self-care (01) ==
PROVIDERS: PCP Internal Medicine; Visit Provider Internal Medicine
DX: I25.10 Atherosclerotic heart disease of native coronary artery without angina pectoris (principal); I25.5 Ischemic cardiomyopathy; I35.8 Other nonrheumatic aortic valve disorders; I10 Essential (primary) hypertension; E78.5 Hyperlipidemia, unspecified; T14.8XXA Other injury of unspecified body region, initial encounter; M79.89 Other specified soft tissue disorders; R04.0 Epistaxis
CPT/HCPCS: 99215

== ENCOUNTER → 2023-11-16 09:54 | Outpatient (BNVA) | payer MEDICARE, SELFPAY | PROVIDERS: PCP Internal Medicine; Visit Provider Internal Medicine ==

== ENCOUNTER 2023-11-16 10:47 | Outpatient (REF) | payer MEDICARE, SELFPAY ==
--- NOTE | ~2023-11-16 | US_ITS ---
EXAMINATION: US NONINVASIVE ASSESSMENT OF THE RIGHT LOWER EXTREMITY WITH ARTERIAL DUPLEX CLINICAL INFORMATION: Right groin hematoma status post cardiac catheterization COMPARISON: None available. TECHNIQUE: Duplex Doppler techniques with waveform analysis and measurement of velocities in the common femoral, external iliac arteries were performed. FINDINGS: RIGHT LOWER EXTREMITY DUPLEX ULTRASOUND: Common femoral artery: 88.5 cm/s. Diastolic flow reversal: Triphasic No evidence of pseudoaneurysm or adjacent hematoma External iliac artery: 87.4 cm/s. Diastolic flow reversal: Triphasic Evidence of pseudoaneurysm or adjacent hematoma US/US arterial duplex LE RT IMPRESSION: Normal arterial duplex ultrasound of the right groin. No evidence of pseudoaneurysm or hematoma. Electronically signed by: Harsh Wilson MD 11/16/2023 11:38 AM EDT
== END 2023-11-16 10:48 | disposition home or self-care (01) ==
LOC: HO.US 10:47
PROVIDERS: Visit Provider Internal Medicine
DX: I72.9 Aneurysm of unspecified site (principal)
CPT/HCPCS: 93926; 99212

== ENCOUNTER → 2023-12-14 12:55 | Outpatient (REF) | payer MEDICARE, SELFPAY ==
--- NOTE | 2023-12-14 12:59 | CA_ITS ---
Transthoracic Echocardiogram Patient (Last, First, Middle): Mario Deng W Gender: Male Date of : 1950 Age: 73 Procedure Date: 12/14/2023 Procedure Type: Transthoracic Echocardiogram Location: OP Height: 167.64 cm Weight: 75.3 kg BSA: 1.85 m2 Heart Rate: bpm BP: 148 / 72 mmHg Order Checker Packer Processer: TO Referring MD: Kurt Wright MD Symptoms: I25.10 - Atherosclerotic heart disease of [place] coronary artery without... Study Quality: Adequate ECG Rhythm: Sinus Conclusions: - The left ventricular systolic function is mildly decreased. The visually estimated ejection fraction is between 45-50%. - Evidence suggests grade III (severe) diastolic dysfunction. - There is evidence of regional wall motion abnormalities. - There is mild aortic valve stenosis. - There is mild dilatation of the ascending aorta measuring 4.00 cm. Findings Procedure Information The study quality is limited by the patients inability to tolerate the test. Left Ventricle Normal left ventricular cavity size. The left ventricular systolic function is mildly decreased. The visually estimated ejection fraction is between 45 50%. There is evidence of regional wall motion abnormalities. Evidence suggests grade III (severe) diastolic dysfunction. LV peak GLS -16.9%. Wall Motion Rest Echo Findings The apical septum, mid anterolateral, mid inferoseptal, and mid inferolateral segments are hypokinetic. The basal inferior, mid anterior, and mid anteroseptal segments are akinetic. Right Ventricle Normal right ventricular cavity size. There is low normal right ventricular systolic function. Atria The left atrium is mildly dilated. The right atrium is normal in size. Aortic Valve There is a normal trileaflet aortic valve. There is moderate calcification of the aortic valve. There is mild aortic valve stenosis. There is trace (trivial) aortic valve regurgitation. Mitral Valve The mitral valve appears normal. There is mild mitral annular calcification. There is mild mitral valve regurgitation. There is no mitral valve stenosis. Pulmonic Valve There is trace pulmonic valve regurgitation. Tricuspid Valve There is mild tricuspid valve regurgitation. There is no evidence of pulmonary hypertension. Great Vessels There is mild dilatation of the ascending aorta measuring 4.00 cm. Moderate plaque is seen in the ascending aorta. Venous The inferior vena cava is normal in size and collapses greater than 50% with inspiration. Pericardium/Pleural There is no evidence of pericardial effusion. Prior Study Comparison Changes noted compared to prior study dated: 09/22/2023. LVEF lower than prior study. See comment on wall motion. Measurements 2D Linear Measurements IVSd: 0.94 0.6-0.9/0.6-1.0 cm LVIDd: 5.27 3.9-5.3/4.2-5.9 cm LVIDd Index: 2.85 2.4-3.2/2.2-3.1 cm/m2 LVIDs: 3.45 2.0-3.6 cm LVPWd: 0.94 0.7-1.1 cm LA Diam: 3.80 2.7-3.8/3.0-4.0 cm LAIDs Index: 2.05 1.5-2.3 cm/m2 LV Mass: 228.09 67-162/88-224 g LV Mass Index: 123.29 43-95/49-115 g/m2 LVOT Diam: 2.00 3.0+(-)1.3 cm 2D Systolic Function EF 4C: 59.10 >55% EF 2C: 58.50 >55% EF BiP: 59.10 >55% Mitral Valve MV VTI: 0.42 MV Pk Hakan: 0.96 MV Mn Hakan: 0.49 MV Pk Grad: 4.00 MV Mn Grad: 1.00 MV Pk E: 0.97 MV PK A: 0.40 MV Decel Time: 284.00 E/A: 2.40 E'Lateral: 7.29 E'Medial: 4.68 E/E' Med: 20.70 E/E' Lat: 13.30 PHT: 83.00 MVA PHT: 2.65 MVA Continuity: 1.51 Decel Florence: 3.41 Aortic Valve AoV Pk Hakan: 1.92 AoV Mn Hakan: 1.30 AoV VTI: 0.47 AoV Pk Grad: 15.00 Aov Mn Grad: 8.00 DEONNA Cont.VTI: 1.35 LVOT LVOT Pk Hakan: 0.89 LVOT Mn Hakan: 0.55 LVOT VTI: 0.20 LVOT Pk Grad: 3.00 LVOT Mn Grad: 1.00 LVOT Diam: 2.00 LVOT Area: 3.14 Diastolic Function MV Pk E: 0.97 MV Pk A: 0.40 E/A: 2.40 E'Medial: 4.68 E/E' Med: 20.70 E' Laterial: 7.29 E/E' Lat: 13.30 Right Ventricle TAPSE (mm): 18.90 TVS' Hakan: 9.25 Tricuspid Valve TR Pk Hakan: 2.63 TR Pk Grad: 28.00 RA Press: 3.00 RVSP: 31.00 Great Vessels Aorta Sinus of Valsalva: 3.57 2.0-3.5 cm Ao Asc: 4.00 2.1-3.4 cm Updated in Other Vendor System with Status of Final Kurt Wright MD electronically signed on 12/16/2023 11:11:47 AM with status of Final
== END ==
LOC: HO.CARD 12:55
PROVIDERS: PCP Internal Medicine; Visit Provider Internal Medicine
DX: I25.10 Atherosclerotic heart disease of native coronary artery without angina pectoris (principal)
CPT/HCPCS: 93306

== ENCOUNTER → 2023-12-14 12:59 | Outpatient (BNV) | payer MEDICARE, SELFPAY | PROVIDERS: PCP Internal Medicine; Visit Provider Internal Medicine | DX: I35.2 Nonrheumatic aortic (valve) stenosis with insufficiency (principal); I34.0 Nonrheumatic mitral (valve) insufficiency; I36.1 Nonrheumatic tricuspid (valve) insufficiency | CPT/HCPCS: 93306; 93356 ==

== ENCOUNTER 2023-12-23 11:05 | Outpatient (AMB) | payer MEDICARE, SELFPAY ==
[2023-12-23 11:19] VITALS: BP 136/52; PULSE 53; BMI 27.1
--- NOTE | 2023-12-23 11:19 | MHC.OFFVIS ---
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 To recall, in 2016, he was admitted for NSTEMI. Cardiac catheterization showed culprit vessel being in the venous graft to the diagonal branch and this was stented. In May 2019, another NSTEMI; underwent cardiac catheterization. Culprit lesion was vein graft to diagonal consistent with very late stent thrombosis, treated with drug-eluting stenting. Yet another STEMI 10/2023 leading to catheterization. Again, vein graft to diagonal was stented. The occlusion was distal to the prior stent. He also got thrombolytics due to delay in getting him to the [facility]. Otherwise, he has had issues with abnormal LFTs and was briefly off cholesterol medications but then back on them again. No longer on Zetia. He has had some nosebleed issues few months back but nothing recently. That time, antiplatelet regimen was briefly cut back but for the last several months, he states he was taking both aspirin and Plavix without any issues. Overall, he states he feels good. No new concerns. [facility] Medical History (Updated 11/16/23 @ 11:07 by Kurt Wright MD) History of DE (myocardial infarction) Personal history of nicotine dependence CAD (coronary artery disease) Abnormal LFTs Hyperlipidemia, unspecified Essential hypertension Subsequent ST elevation (STEMI) myocardial infarction Atherosclerotic cardiovascular disease Surgical History History of cardiac cath History of endoscopy History of colonoscopy History of AAA (abdominal aortic aneurysm) repair (~2018) History of tonsillectomy History of heart artery stent History of coronary artery bypass graft (~2002) Family History Father Myocardial infarction Stroke Mother No problems noted. Social History Alcohol intake: current Alcohol intake frequency: 0-2 drinks per day Alcohol type: beer Patient Tobacco Use Status: Former Tobacco user Years Smoked: (former smoker - onset 15yo, 1-1.5ppd x 46yrs, 50pyh - quit 09/14/2011) Substance Use Type: Marijuana Review of Systems Const Denies chills, Denies fatigue, Denies fever(s), Denies weight gain and Denies weight loss ENT Denies dizziness Card Denies chest pain, Denies leg edema, Denies lightheadedness, Denies palpitations, Denies dyspnea on exertion, Denies orthopnea and Denies other Resp Denies cough and Denies dyspnea on exertion GI Denies hematochezia and Denies change in stool character Musc Denies abnormal gait, Denies muscle weakness, Denies numbness, Denies radiating pain into limb and Denies tingling Neuro Denies abnormal gait, Denies dizziness, Denies numbness and Denies tingling Endo Denies fatigue and Denies palpitations Physical Exam Vital Signs: Last Vital Signs Pulse 53 12/23/23 11:19 BP 136/52 L 12/23/23 11:19 BMI result Body Mass Index 27.1 Const General: comfortable and no acute distress Orientation/consciousness: patient oriented x3 HEENT Other: Unremarkable Head: Yes normal to inspection Neck Neck: Yes normal visual inspection Chest Chest palpation & inspection: normal inspection of the chest Resp Auscultation: clear to auscultation bilaterally Cardio Palpation: normal PMI Heart sounds: S1 normal heart sound present, S2 normal heart sound present, no gallops, no murmurs and no rubs GI Palpation (GI): Soft to palpation Back/Spine/Pelvis Other: unremarkable Skin General skin exam: no rashes or lesions noted Neuro General: patient oriented x3 Extrem General: Yes normal to inspection Psych Mental Status: mental status grossly normal Assessment & Plan Assessment & Plan (1) Atherosclerotic cardiovascular disease: Code(s): I25.10 - Atherosclerotic heart disease of [place] coronary artery without angina pectoris Category: Medical Plan: Cardiac catheterization data reviewed. Severe [place] disease. ALBARRAN to LAD is patent. Vein graft to PDA is occluded. Radial to OM2 is patent. In the vein graft to 1st diagonal, occlusion distal to prior stent. Thought to be very late stent thrombosis. Continue long-term aspirin/Plavix. If recurrent nosebleeds, will need to see ENT. Otherwise, advised to stop marijuana use. He states he has cut back a lot. (2) Ischemic cardiomyopathy: Code(s): I25.5 - Ischemic cardiomyopathy Category: Medical Plan: Echocardiogram at [facility] with LVEF of 35-40% with wall motion abnormalities from underlying coronary disease. In the repeat study, LVEF is 45-50%. Wall motion abnormalities are noted. Clinically, no heart failure symptoms or signs. (3) Aortic valve sclerosis: Code(s): I35.8 - Other nonrheumatic aortic valve disorders Category: Medical Plan: Echocardiogram shows mild aortic stenosis. We can monitor. (4) Essential hypertension: Code(s): I10 - Essential (primary) hypertension Category: Medical Plan: In the past, had reported tiredness with higher dose of beta-lyly as well as low blood pressure with lisinopril. However, after the reason stable admission changes have been made. We will monitor. (5) Hyperlipidemia, unspecified: Code(s): E78.5 - Hyperlipidemia, unspecified Category: Medical Plan: Continue statins. With Zetia, he has had LFT issues. Overall, controlled lipids. LDL at [facility] 56 mg/dL. Triglycerides 31 mg/dL. (6) Frequent epistaxis: Code(s): R04.0 - Epistaxis Category: Medical Plan: If recurs, consult ENT. Coding Level of Care Code Est Pt Level 4 (25620) Diagnoses Atherosclerotic cardiovascular disease I25.10 Ischemic cardiomyopathy I25.5 Aortic valve sclerosis I35.8 Essential hypertension I10 Hyperlipidemia, unspecified E78.5 Frequent epistaxis R04.0
== END 2023-12-23 11:28 | disposition home or self-care (01) ==
PROVIDERS: PCP Internal Medicine; Visit Provider Internal Medicine
DX: I25.10 Atherosclerotic heart disease of native coronary artery without angina pectoris (principal); I25.5 Ischemic cardiomyopathy; I35.8 Other nonrheumatic aortic valve disorders; I10 Essential (primary) hypertension; E78.5 Hyperlipidemia, unspecified; R04.0 Epistaxis
CPT/HCPCS: 99214

== ENCOUNTER → 2023-12-23 11:05 | Outpatient (BNVA) | payer MEDICARE, SELFPAY | PROVIDERS: PCP Internal Medicine; Visit Provider Internal Medicine | DX: I25.10 Atherosclerotic heart disease of native coronary artery without angina pectoris (principal); I25.2 Old myocardial infarction; I25.5 Ischemic cardiomyopathy; I35.8 Other nonrheumatic aortic valve disorders; I10 Essential (primary) hypertension; E78.5 Hyperlipidemia, unspecified; R04.0 Epistaxis | CPT/HCPCS: 99212 ==

== ENCOUNTER 2024-01-03 10:53 | Outpatient (REF) | payer MEDICARE, SELFPAY ==
[2024-01-03 12:34] LABS: Alanine Aminotransferase 21 U/L (0-40); Albumin Level 3.9 g/dL (3.5-5.0); Alkaline Phosphatase 55 U/L (39-117); Aspartate Amino Transferase 31 U/L (5-37); Bilirubin Direct 0.2 mg/dL (0.0-0.5); Bilirubin Total 0.5 mg/dL (0.0-1.0); Cholesterol 123 mg/dL (<200); HDL Cholesterol 48 mg/dL (>40); LDL Cholesterol Calculated 64 mg/dL (<100); Total Protein 6.3 g/dL (6.5-8.0); Triglycerides 56 mg/dL (<150)
== END 2024-01-03 10:54 | disposition home or self-care (01) ==
LOC: HO.LNP 10:53
PROVIDERS: Visit Provider Internal Medicine
DX: I25.10 Atherosclerotic heart disease of native coronary artery without angina pectoris (principal)
CPT/HCPCS: 80061; 80076

== ENCOUNTER 2024-05-08 10:28 | Outpatient (REF) | payer MEDICARE, SELFPAY ==
[2024-05-08 11:37] LABS: Alanine Aminotransferase 25 U/L (0-40); Alkaline Phosphatase 51 U/L (39-117); Aspartate Amino Transferase 30 U/L (5-37); Bilirubin Direct 0.3 mg/dL (0.0-0.5); Bilirubin Total 0.6 mg/dL (0.0-1.0); Cholesterol 125 mg/dL (<200); HDL Cholesterol 49 mg/dL (>40); LDL Cholesterol Calculated 67 mg/dL (<100); Total Protein 6.7 g/dL (6.5-8.0); Triglycerides 45 mg/dL (<150)
--- OUTSIDE RECORDS SUMMARY | 2024-05-08 11:48 | XMS_ITS ---
Author Organization Parth Hinojosa MD Address [address] [place], [place] [id number] Care Team Providers Care Residential Mortgage Underwriter Name Role Phone Parth Hinojosa Primary Care Provider Allergies No Known Allergies REASON FOR VISIT 2 MO F/U Medications Medication SIG (Take, Route, Frequency, Duration) Notes Start Date End Date Status Insulin Syringe-Needle U-100 30G X 1/2 as directed n/a n/a for 30 days 12/18/2013 Active Clopidogrel Bisulfate 75 MG 1 tablet Orally Once a day for 30 day(s) Active Aspir-Low 81 MG 1 tablet Orally Once a day for 30 day(s) Active Tamsulosin HCl 0.4 MG TAKE 1 CAPSULE BY MOUTH EVERY DAY Orally twice a day Not-Taking amLODIPine Besylate 10 MG 1 tablet Orall y Once a day Not-Taking Metoprolol Succinate 50 MG 1 capsule Orally Once a day Active Metamucil 30.9 % as directed Orally Active Vitamin D 25 MCG (1000 UT) 2 tablet Orally Once a day Active Alfuzosin HCl ER 10 MG 1 tablet immediat duy after the same meal Orally Once a day for 30 day(s) Active Valsartan 40 MG 1 tablet Orally Twic e a day Active Atorvastatin Calcium 80 MG 1 tablet Orally Once a day Active Vital Signs Blood pressure systolic 112 mm Hg 01/07/20 24 Blood pressure diastolic 78 mm Hg 024 Height 66 in 01/07/2024 Weight 167 lbs 01/07/2024 BMI 26.95 kg/m2 01/07/2024 Encounters Encounter Location Date Provider Diagnosis Parth Hinojosa MD [address] [place], [place] [phone] 01/07/2024 Parth Hinojosa Pure hypercholestero lemia E78.00 ; Coronary artery disease I25.10 ; S/P drug eluting coronary stent placement Z95.5 ; Elevated PSA R97.20 and Essential hypertension I10 Assessments Encounter Date Diagnosis (ICD Code) Assessment Notes Treatment Notes Treatment Clinical Notes Section Notes 01/07/2024 Pure hypercholesterolemia (ICD-10 - E78.00) good cholesterol 01/07/2024 Coronary artery dise ase (ICD-10 - I25.10) getting 2 miles of walking 01/07/2024 S/P drug eluting coronary stent placement (ICD-10 - Z95.5) doing well with no chest pain 01/07/2024 Elevated PSA (ICD-10 - R97.20) due to see urology next month 01/07/2024 Essential hypertensi on (ICD-10 - I10) stabl;e, will continue current regiment Plan Of Treatment Medication Medication Name Sig Start Date Stop Date Notes Metoprolol Succinate 50 MG 1 capsule Orally Once a day Valsartan 40 MG 1 tablet Orally Twice a day Atorvastatin Calcium 80 MG 1 tablet Orally Once a day Treatment Notes Assessment Notes Pure hypercholesterolemia good cholester ol Coronary artery disease getting 2 miles of walking S/P drug eluting coronary stent placemen t doing well with no chest pain Elevated PSA due to see urology n ext month Essential hypertension stabl;e, will con tinue current regiment Pending Test Test Name Order Date PSA,Total (Free>4and<10) 01/07/2024 Next Appt Details Follow Up: 6 Months, Reason: Provider Name:Parth carpenter, 05/12/2024 09:00:00 AM, [address], [address], [place], [phone], Provider Name:Parth Castillo ier, 10/31/2024 07:15:00 AM, [address], [address], [place], [place], [phone], Provider Name:Parth Castillo ier, 11/06/2024 08:30:00 AM, [address], [address], [place], [phone], Progress Notes * SOWMYA Mario Rao JrDOB:1950 (73 yo M)Acc No.[id number]:01/07/2024 Progress Notes Patient:?Sowmya Mario Rao Provider:?Parth Hinojosa MD :1950???Age:73 Y???Sex:Male Gino e:01/07/2024 Address:[address] [place], [place] [id number] Subjective: * Chief Complaints: * ???2 MO F/U * HPI: ???Symptom(s):? patient is a 73 yo male here for 2 month follow up. seeing ent next week because he gets nose bleeds/ got his hearing back as soon as he got the steroids in tm. * ROS:?General/Constitutional:?Denies?Chills.?Denies?Fatigue.?Denies?Fever.?Denies?Headache.?ENT:?Patient denies?decreased sense of smell , any loss of taste , sore throat.?Denies?Sore throat.?Respiratory:?Denies?Cough.?Denies?Shortness of breath at rest.?Denies?Shortness of breath with exertion.?Gastrointestinal:?Denies?Diarrhea.?Denies?Nausea.?Musculoskeletal:?Patient denies?muscle aches.?Peripheral Vascular:?Patient denies?red and blue toes.? * Medical History:? * Surgical History:? * Hospitalization/Major Diagno stic Procedure:? * Medications:?TakingAlfuzosin HCl ER 10 MG Tablet Extended Release 24 Hour 1 tablet immediately after the same meal Orally Once a dayValsartan 40 MG Tablet 1 tablet Orally Twice a dayMetamucil 30.9 % Powder as directed Orally Vitamin D 25 MCG (1000 UT) Tablet 2 tablet Orally Once a dayAspir-Low 81 MG Tablet Delayed Release 1 tablet Orally Once a dayClopidogrel Bisulfate 75 MG Tablet 1 tablet Orally Once a dayInsulin Syringe-Needle U-100 30G X 1/2 Miscellaneous as directed n/a n/aAtorvastatin Calcium 80 MG Tablet 1 tablet Orally Once a dayMetoprolol Succinate 50 MG Capsule ER 24 Hour Sprinkle 1 capsule Orally Once a dayTaking Alfuzosin HCl ER 10 MG Tablet Extended Release 24 Hour 1 tablet immediately after the same meal Orally Once a dayTaking Valsartan 40 MG Tablet 1 tablet Orally Twice a dayTaking Metamucil 30.9 % Powder as directed Orally Taking Vitamin D 25 MCG (1000 UT) Tablet 2 tablet Orally Once a dayTaking Aspir-Low 81 MG Tablet Delayed Release 1 tablet Orally Once a dayTaking Clopidogrel Bisulfate 75 MG Tablet 1 tablet Orally Once a dayTaking Insulin Syringe-Needle U-100 30G X 1/2 Miscellaneous as directed n/a n/aTaking Atorvastatin Calcium 80 MG Tablet 1 tablet Orally Once a dayTaking Metoprolol Succinate 50 MG Capsule ER 24 Hour Sprinkle 1 capsule Orally Once a dayNot-Taking/PRNTamsulosin HCl 0.4 MG Capsule TAKE 1 CAPSULE BY MOUTH EVERY DAY Orally twice a dayamLODIPine Besylate 10 MG Tablet 1 tablet Orally Once a dayNot-Taking/PRN Tamsulosin HCl 0.4 MG Capsule TAKE 1 CAPSULE BY MOUTH EVERY DAY Orally twice a dayNot-Taking/PRN amLODIPine Besylate 10 MG Tablet 1 tablet Orally Once a dayDiscontinuedAfrin 12 Hour 0.05 % Solution 4 sprays (2 sprays in each nostril) Nasally Twice a dayMedication List reviewed and reconciled with the patientDiscontinued Afrin 12 Hour 0.05 % Solution 4 sprays (2 sprays in each nostril) Nasally Twice a dayMedication List reviewed and reconciled with the patient * Allergies:?N.K.D.A.yes[Aller geovanny Verified] Objective: * Vitals:?Ht: 66, Wt:167, BMI: 26.95, BP:112/78. * Examination: ???General Examination: ?GENERAL APPEARANCE:?alert, well hydrated, in no distress.?HEART:?grade 1/6 systolic murmur at left sternal border , regular rate and rhythm.?LUNGS:?clear to auscultation bilaterally.? Assessment: * Assessment: 1.?Pure hypercholesterolemia - E78.00?2.?Coronary artery disease - I25.10?3.?S/P drug eluting coronary stent placement - Z95.5?4.?Elevated PSA - R97.20?5.?Essential hypertension - I10? Plan: * Treatment: 2.?Coronary artery disease? Notes: getting 2 miles of walking?? 3.?S/P drug eluting coronary stent placement? Notes: doing well with no chest pain?? 4.?Elevated PSA? Notes: due to see urology next month?? 5.?Essential hypertension? Continue Valsartan Tablet, 40 MG, 1 tablet, Orally, Twice a day;?Continue Metoprolol Succinate Capsule ER 24 Hour Sprinkle, 50 MG, 1 capsule, Orally, Once a day.?? Notes: stabl;e, will continue current regiment?? * Procedure Codes:? * Follow Up:?6 Months * * Sign off status: Completed true * Provider:?Parth Hinojosa MD Date:?1 03/08/2023 Generated for Nathan perez/Letty/Dawnaitting on:?05/08/2024 11:48 AM EDT History and Physical Notes * HPI (History of Present Illness) Category Sub-Category Detail Notes Category Not es Symptom(s) patient is a 73 yo male here for 2 month follow up. seeing ent next week because he gets nose bleeds/ got his hearing back as soon as he got the steroids in tm. Examination Category Sub-Category Detail Notes Category Not es General Examination GENERAL APPEARANCE: alert, w ell hydrated, in no distress HEART: grade 1/6 systolic m urmur at left sternal border , regular rate and rhythm LUNGS: clear to auscultatio n bilaterally
--- OUTSIDE RECORDS SUMMARY | 2024-05-08 11:48 | XMS_ITS ---
Author Organization Parth Hinojosa MD Address [address] [place], [place] [id number] Care Team Providers Care Manager Residential Name Role Phone Parth Hinojosa Primary Care Provider Results Component Value Reference Range Notes Liver Panel Reviewed date:01/03/2024 12:57:49 PM Interpretation: Performing Lab:[facility], [address] [place] [phone] Notes/Report: Bilirubin Total 0.5 0.0-1.0 mg/dL Bilirubin Direct 0.2 0.0-0.5 mg/dL Aspartate Amino Transferase 31 5-37 U/L Alanine Aminotransferase 21 0-40 U/L Total Protein 6.3 6.5-8.0 g/dL Albumin Level 3.9 3.5-5.0 g/dL Alkaline Phosphatase 55 39-117 U/L Lipid Panel Reviewed date:01/03/2024 12:56:32 PM Interpretation: Performing Lab:[facility], [address] [place] [phone] Notes/Report: Triglycerides 56 <150 mg/dL Desirable Triglyceride: less than 150 mg/dL Borderline High Triglyceride 150-199 mg/dL High Triglyceride: 200-499 mg/dL Very High Triglyceride: greater than or equal to 5OO mg/dL Cholesterol 123 <200 mg/dL Desirable Cholesterol: less than 200 mg/dL Borderline High Cholesterol: 200-239 mg/dL High Cholesterol: greater than 239 mg/dL LDL Cholesterol Calculated 64 <100 mg/dL Desirable LDL: less than 100 mg/dL Near Optimal/Above Optimal LDL: 110-129 mg/dL Borderline High LDL: 130-159 mg/dL High LDL: 160-189 mg/dL Very High LDL: greater than or equal to 190 mg/dL HDL Cholesterol 48 >40 mg/dL Desirable HDL: greater than 40 mg/dL Note: This HDL assay may give artificially low results in patients with liver disease. REASON FOR VISIT LIPID PANEL, LIVER PANEL Encounters Encounter Location Date Provider Diagnosis Parth Hinojosa MD [address] [place] [address] [place] [phone] 01/03/2024 Parth Hinojosa Pure hypercholestero lemia E78.00 and Coronary artery arteriosclerosis I25.10 Assessments Encounter Date Diagnosis (ICD Code) Assessment Notes Treatment Notes Treatment Clinical Notes Section Notes 01/03/2024 Pure hypercholesterolemia (ICD-10 - E78.00) 01/03/2024 Coronary artery arteriosclerosis (ICD-10 - I25.10) Plan Of Treatment Next Appt Details Provider Name:Parth carpenter, 05/12/2024 09:00:00 AM, [address] [place] [address], [address], [phone], Provider Name:Parth carpenter, 10/31/2024 07:15:00 AM, [address] [place] [address], [address], [phone], Provider Name:Parth carpenter, 11/06/2024 08:30:00 AM, [address] [place] [address], [address], [phone], Progress Notes * Mario VARMAB:1950 (73 yo M)Acc No.[id number]:01/03/2024 Progress Note Patient:?Mario VARMA Jr Provider:?Parth Hinojosa MD :1950???Age:73 Y???Sex:Male Gino e:01/03/2024 Address:[address] [place] [address] Subjective: * Chief Complaints: * ???1. LIPID PANEL, LIVER CARSON EL. * Medical History:? Objective: * Vitals:? Assessment: * Assessment: 1.?Pure hypercholesterolemia - E78.00 (Primary)???2.?Coronary artery arteriosclerosis - I25.10??? Plan: * Treatment: * Procedure Codes:?18638 VENIP UNCT, ROUTINE* * * The named appointment provid er may or may not be the originator of this progress note, and it is not deemed complete until electronically signed by the appointment provider. Sign off status: Pending * Provider:?Parth Hinojosa MD Date:?1 03/04/2023 Generated for Nathan perez/Letty/eTransmitting on:?05/08/2024 11:48 AM EDT
--- OUTSIDE RECORDS SUMMARY | 2024-05-08 11:49 | XMS_ITS | Data Portability ---
Author Organization [place] - [facility], Allergy Address [address] [place] [id number] Care Team Providers Care Hide Tanner Name Role Phone ROSENDO PATEL Primary Care Provider Assessment Encounter Date Assessment Date Assessment LastModified by Organization Details LastModified Time 01/10/2024 01/10/2024 No active bleeding. Septal deviation to right but no crusting. Suggest more aggressive saline,[place] Jelly and Ponaris at this point there is nothing to cauterize and no major crusting. We discussed strategies to try to prevent the nosebleeds especially given the requirement for aspirin and Plavix due to his heart disease. [email or web address] Not available 01/10/2024 14:56:25 Plan of Treatment Reminders Order Date Submit Date Provider Last Modified By Organization Details Last Modified Time Details Appointments None record ed. Lab None record ed. Referral None record ed. Procedures None record ed. Surgeries None record ed. Imaging None record ed. Medication Orders None record ed. Patient TargetsNo targets recorded. Patient Instructions Encounter Date Encounter Id Patient Instructions Last Modified By Organization Details Last Modified Time 01/10/2024 [id number] nosebleed information jschreibstein Not available 01/10/2024 14:56:26 Reason for Referral None Reported. Problems Name Problem SNOMED Code Status Onset Date Resolution Date Notes Provider Name and Address Organization Details Recorded Time Bleeding from nose 734693263 Active 2022 Epistaxis; Note: Date Diagnosed: 09/21/2022 10:54 AM (R04.0) Not Available [facility]:57[facility] Sudden idiopathi c hearing loss 219474075 Active 2023 Sudden idiopathic hearing loss, right ear; Note: Date Diagnosed: 03/31/2023 2:38 PM (H91.21) Not Available [facility] 02:57:20 Sensorine ural hearing loss of bilateral ears 855853336 Active 2023 Sensorineu ral hearing loss, bilateral; Note: Date Diagnosed: 03/31/2023 2:04 PM (H90.3) Not Available [facility] 02:57:22 Problem Notes None recorded. Procedures Surgical History Date Name Laterality Status Provider Name and Address Organization Details Recorded Time repair of aneurysm of abdominal aorta completed MILADIS MENDOZA MD [address] [place] [address], [phone], [facility] 01/10/2024 14:51:24 coronary artery bypass graft completed MILADIS MENDOZA MD [address] [place] [address],[address], [phone], [facility] 01/10/2024 14:51:33 placement of stent in cardiac conduit completed MLIADIS MENDOZA MD [address] [place] [address], [phone], [facility] 01/10/2024 14:51:41 Imaging Results None recorded. Procedure Notes None recorded. Medical Equipment None Reported. Medications Name Sig Start Date Stop Date Status Note LastModified by Organization Details LastModified Time amoxicill in 500 mg capsule TAKE 1 CAPSULE BY MOUTH THREE TIMES DAILY 01/09 completed Not Available Not Available Not Available atorvasta tin 80 mg tablet TAKE 1 TABLET EVERY EVENING active Not Available Not Available No t Available prednison e 10 mg tablet by mouth 01/09 completed Not Available Not Available Not Available metoprolo l succinate ER 50 mg tablet,ex tended release 24 hr TAKE 1 TABLET BY MOUTH DAILY. FURTHER REFILLS PER CARDIOLO GY active Not Available Not Available No t Available prednison e 20 mg tablet TAKE 3 TABLETS BY MOUTH EVERY DAY FOR 10 DAYS 01/09 completed Not Available Not Available Not Available clopidogr el 75 mg tablet active Medicati on ID: [id number] B rand Name: clopidog rel Send Method: E-Prescr ibed Sub s Allowed: subs OK Medic ationGen ericName : clopidog rel Not Available Not Available Not Available tamsulosi n 0.4 mg capsule active Medicati on ID: [id number] B rand Name: tamsulos in Send Method: E-Prescr ibed Sub s Allowed: subs OK Medic ationGen ericName : tamsulos in Not Available Not Available Not Available amlodipin e 10 mg tablet active Medicati on ID: [id number] B rand Name: amlodipi ne Send Method: E-Prescr ibed Sub s Allowed: subs OK Medic ationGen ericName : amlodipi ne Not Available Not Available Not Available metoprolo l succinate ER 25 mg tablet,ex tended release 24 hr active Medicati on ID: [id number] B rand Name: metoprol ol succinat e Send Method: E-Prescr ibed Sub s Allowed: subs OK Medic ationGen ericName : metoprol ol succinat e Not Available Not Available Not Available amoxicill in 875 mg-potass ium clavulana te 125 mg tablet TAKE 1 TABLET BY MOUTH TWICE DAILY FOR 7 DAYS 01/09 completed Not Available Not Available Not Available valsartan 40 mg tablet TAKE 1 TABLET BY MOUTH 2 TIMES A DAY. FURTHER REFILLS PER CARDIOLO GY active Not Available Not Available No t Available Vitals Date Recorded Body height Body mass index (BMI) Body weight Provider Name and Address Organization Details Last Updated DateTime 01/10/2024 167.64 cm 27 kg/m2 95824.93 g Bj Grover [facility] 01/10/2024 14:46:35 Social History None recorded. Functional Status None recorded. Mental Status None recorded. Family History Nothing Reported. Medical History Condition Response Heart Problems Y Past Encounters Encounter ID Performer Location Encounter Start Date Encounter Closed Date Diagnosis/Indication Diagnosis SNOMED-CT Code Diagnosis ICD10 Code Diagnosis Note [id number] MILADIS NORWOOD MD [facility] [address] [phone] 01/10/2024 14:30:35 01/10/2024 14:58:50 Bleeding from nose 947027624 R04.0 Long-term current use of antiplatelet drug [id number] 50841 Z79.02 Health Concerns Section Related Observation LastModified by Organization Detai ls LastModified Time None Recorded Concern Status LastModified by Organization Details LastModified Time None Recorded Advance Directives Directive None Recorded Payers Encounter Date Sequence Insurance Name Policy Number Policy Cage Covered Member ID Cage Member ID Guarantor Name 01/10/2024 2 [place] [id number] [place] Sow[place] [id number] Mario W Sowmya 01/10/2024 1 [place] [employer] [place] [id number] 1 Mario W Sowmya Notes Date Note Type Note Provider Name and Address Organization Details Recorded Time 01/10/2024 text/html Hx of epistaxis, septal deviation, and nasal crusting. No bleeding for months. Anxious about crusting as he is on Plavix again. No CP or SOB. Recent MT and had another stent in October. on ASA and Plavix MILADIS MENDOZA MD [address] [place] [address], [place], [address], [facility] - [facility] 01/10/2024 14:56:55
--- OUTSIDE RECORDS SUMMARY | 2024-05-08 11:49 | XMS_ITS | Patient Health Record ---
Author Organization [facility]ner Address [address] [place] [address] Care Team Providers Care Fish Butcher Name Role Phone Parth Hinojosa MD Primary Care Provider Gordon Kelly Unavailable [phone] Allergies No Known Allergies Reason For Referral No Information Medications Medication SIG (Take, Route, Frequency, Duration) Notes Start Date End Date Status Carvedilol 12.5 MG Oral for 30 Not-Taking Physical Therapy . . . 2-3x/week for 3- 4 weeks 07/10/2019 Active Ezetimibe 10 MG TK 1 T PO QD Oral fo r 30 Not-Taking Plavix 75 MG 1 tablet Orally Once a day for 30 day(s) Active Lisinopril 10 MG Oral for 30 N ot-Taking Rosuvastatin Calcium 20 MG TK 1 T PO QD Orally Once a day Active Tamsulosin HCl 0.4 MG TK 1 C PO QD Oral for 90 Active Night Splint AFO - L1930 as directed 07/10/2019 Active Aspir-81 07/10/2019 Active amLODIPine Besylate 2.5 MG TK 1 T PO QD Oral for 90 Active Stool Softener 100 MG TAKE 1 CAPSULE BY MOUTH 2 TIMES A DAY Oral for 30 Not-Taking traMADol HCl 50 MG (Schedule IV Drug) T K 1 T PO Q 8 H PRN FOR PAIN Oral for 7 Not-Taking Brilinta 90 MG Oral for 30 Not -Taking Clopidogrel Bisulfate 75 MG TAKE 1 TABLET BY MOUTH EVERY DAY Oral for 90 Not-Taking Metoprolol Succinate ER 25 MG TK 1 T PO QD Oral for 90 Active Metoprolol Tartrate 25 MG TK 1 T PO QD O ral for 90 Not-Taking Social History Tobacco Use: Social History Observation Description Date Details (start date - stop date) Former Smoker NA - NA Tobacco Use/Smoking Question Answer Notes Are you a: former smoker Additional Findings: Tobacco Non-User Current no n-smoker Alcohol Screen Question Answer Notes Did you have a drink contain ing alcohol in the past year? Yes How often did you have a dri nk containing alcohol in the past year? 2 to 4 times a month (2 points) Points 2 Interpretation Negative Tobacco use other than smoking: Question Answer Notes Are you an other tobacco user? Yes M arijuana Problems Problem Type SNOMED Code ICD Code Onset Dates Problem Status W/U Status Risk Notes Problem Localized, primary osteoarthritis of the ankle and/or foot (919436736) Primary osteoarthrit is, right ankle and foot (M19.071) Active confirmed Problem Acquired hallux rigidus (1227487) Hallux rigidus, left foot (M20.22) Active confirmed Problem Acquired hallux rigidus (2602585) Hallux rigidus, right foot (M20.21) Active confirmed Plan Of Treatment Pending Test Test Name Order Date X ray : Foot, left 3V 07/10/2019 X ray : Foot, right 3V 06/10/2020 Insurance Providers Payer Name Payer Address Payer Phone Subscriber Number Group Number Insured Name Patient Relationship to Insured Coverage Start Date Coverage End Date Medicare National [employer]t Sv[employer] [address] [place] [address] [id number] Mario Deng Self - patient is the insured [employer] [address] [place] [address] [phone] [id number] Mario Deng Self - patient is the insured Medical (General) History Medical History History ICD Code Arthritis Back,Hip,and Knee pain CAD (Cholesterol) Heart disease High blood pressure Reflux Measles Mumps Chicken pox aortic aneurysm Vascular grafts Surgical History Surgery Date(Month/Year) stent insertion X 2 06/13/19
[2024-05-08 13:22] LABS: Reflex LDLD? No
== END 2024-05-08 10:29 | disposition home or self-care (01) ==
LOC: HO.LNP 10:28
PROVIDERS: Visit Provider Internal Medicine
DX: E78.00 Pure hypercholesterolemia, unspecified (principal)
CPT/HCPCS: 80061; 80076

== ENCOUNTER 2024-05-23 10:30 | Emergency (ER) | payer MEDICARE, SELFPAY ==
[2024-05-23 10:33] VITALS: BP 159/74; PULSE 65; RESP 16; TEMP 36.4; O2SAT 98; BMI 26.5
[2024-05-23 10:56] LABS: MANUAL DIFF FLAG NO
[2024-05-23 11:01] LABS: Basophils Percent Auto 0.7 % (0-2); Eosinophils Absolute Auto 0.2 X10*3/uL (0.0-0.4); Eosinophils Percent Auto 2.8 % (0-4); Hematocrit 35.4 % (42.0-52.0); Imm Gran Abs Auto 0.02 X10*3/uL (0.00-0.03); Imm Gran Pct Auto 0.3 % (0.0-0.4); Lymphocytes Absolute Auto 1.1 X10*3/uL (1.2-4.9); Lymphocytes Percent Auto 18.2 % (20-40); Mean Corpuscular HGB Conc 33.9 g/dl (31.0-36.0); Mean Corpuscular Hemoglobin 32.2 pg (27.0-33.0); Mean Corpuscular Volume 94.9 fL (80.0-98.0); Mean Platelet Volume 10.7 fL (9.4-12.4); Monocytes Absolute Auto 0.4 X10*3/uL (0.1-1.2); Monocytes Percent Auto 7.6 % (2-11); Neutrophils Absolute Auto 4.1 x10*3/uL (2.0-8.3); Neutrophils Percent Auto 70.4 % (45-73); Platelet Count 179 X10*3/uL (160-400); Red Blood Count 3.73 X10*6/uL (4.60-5.80); Red Cell Distribution Width 13.9 % (11.0-16.0); White Blood Count 5.8 X10*3/uL (4.8-10.8)
[2024-05-23 11:17] LABS: INTERNATIONAL NORM RATIO 0.9 (0.9-1.1); Prothrombin Time 10.6 SEC (10.9-12.4)
--- NOTE | 2024-05-23 12:33 | ED.GENADULT ---
HPI - General Adult General Chief complaint: Epistaxis Stated complaint: Nosebleed, on thinners Time Seen by Provider: 05/23/24 12:33 Source: patient, family (), RN notes reviewed and old records reviewed Mode of arrival: ambulatory Limitations: no limitations History of Present Illness ED Provider: Sadia HPI narrative: Patient is a 73-year-old male with history of KS on plavix, CAD, HTN, atherosclerotic cardiovascular disease presenting to the emergency department with complaint of epistaxis since 9:00 a.m. today. Patient reports history of multiple similar episodes in the past, sees Dr. Pizarro for ENT. Using saline multiple times per day, eucalyptus emollient ointment at night, has a humidifier. States the past few years he has had nosebleeds in Mar, Apr, and April. This year he did not have any until today. Denies pain. Denies dizziness or lightheadedness. Has been holding direct pressure but area continues to bleed. MD complaint: epistaxis Onset (ago): hour(s) Associated symptoms: denies other symptoms Treatments prior to arrival: other (direct pressure) Related Data Home Medications ?Medication ?Instructions ?Recorded ?Confirmed aspirin 81 mg tablet,delayed 81 mg PO DAILY 01/02/20 12/23/23 release alfuzosin 10 mg tablet,extended 10 mg PO DAILY 06/03/23 12/23/23 release 24 hr cholecalciferol (vitamin D3) 50 50 mcg PO DAILY 11/16/23 12/23/23 mcg (2,000 unit) capsule Previous Rx's ?Medication ?Instructions ?Recorded atorvastatin 80 mg tablet 80 mg PO QPM #90 tabs 12/31/23 clopidogrel 75 mg tablet 75 mg PO DAILY #90 tabs 01/25/24 valsartan 40 mg tablet 40 mg PO BID #180 tabs 02/02/24 metoprolol succinate 50 mg 50 mg PO DAILY #90 tabs 03/29/24 tablet,extended release 24 hr cephalexin 500 mg capsule 500 mg PO QID #20 caps 05/23/24 Allergies Allergy/AdvReac Type Severity Reaction Status Date / Time ezetimibe [From Zetia] AdvReac Elevated Verified 05/23/24 10:34 LFTS Review of Systems Review of Systems: As per HPI Yes all other systems are reviewed and are negative Constitutional: Constitutional: Reports as per HPI [facility] Past Medical History Medical History (Updated 05/23/24 @ 15:12 by Lyndsay Mccullough NP) History of KS (myocardial infarction) Personal history of nicotine dependence CAD (coronary artery disease) Abnormal LFTs Hyperlipidemia, unspecified Essential hypertension Subsequent ST elevation (STEMI) myocardial infarction Atherosclerotic cardiovascular disease Surgical History History of cardiac cath History of endoscopy History of colonoscopy History of AAA (abdominal aortic aneurysm) repair (~2018) History of tonsillectomy History of heart artery stent History of coronary artery bypass graft (~2002) Family History Family History Father Myocardial infarction Stroke Mother No problems noted. Social History Social History Alcohol intake: current Alcohol intake frequency: 0-2 drinks per day Alcohol type: beer Patient Tobacco Use Status: Former Tobacco user Years Smoked: (former smoker - onset 15yo, 1-1.5ppd x 46yrs, 50pyh - quit 09/14/2011) Smoked in Last 30 Days: No Substance Use Type: Marijuana Advance Directives: Yes Advance Directives Information Provided: Yes Advance Directives on File: No Physical Exam ED Vital Signs: Vital Signs - 24 hr 05/23/24 10:33 Temperature 97.6 F Pulse Rate 65 Respiratory Rate 16 Blood Pressure 159/74 H Pulse Oximetry 98 Oxygen Delivery Method Room Air BMI result Body Mass Index 26.5 Vital signs have been reviewed and appear to be correct. Blood pressure elevated. Heart rate normal. Respiratory rate normal. Temperature normal. Oxygen saturation normal. Const General: cooperative, healthy appearing and no acute distress Orientation/consciousness: oriented to person, oriented to place, oriented to time and patient oriented x3 Limitations: no limitations HENMT Head: Yes normocephalic and Yes atraumatic Ears: external ears normal General nose exam: Normal external nose present, Normal nares present and Epistaxis present on the left anterior source and active bleeding; Negative for clots present Face and sinus: Yes face symmetric Mouth: oropharynx normal and moist mucous membranes Throat: Yes uvula midline Eyes Pupils: Equal, round and reactive pupils present Neck Neck: Yes normal visual inspection and Yes supple Resp Effort & Inspection: normal respiratory effort and able to speak in complete sentences Auscultation: clear to auscultation bilaterally Cardio Rate: regular rate Rhythm: regular rhythm Heart sounds: S1 normal heart sound present and S2 normal heart sound present GI Palpation (GI): Soft to palpation and nontender Auscultation: normoactive bowel sounds General: Yes no CVA tenderness Back/Spine/Pelvis Back: no CVA tenderness Skin General skin exam: elasticity normal and turgor normal Neuro General: oriented to person, oriented to place, oriented to time, patient oriented x3, moves all extremities, no focal motor deficits and CN's II-XI intact bilaterally Cranial nerves: Yes Equal, round and reactive pupils present Cognition (Neuro): normal cognition Extrem General: Yes full ROM, Yes no pedal edema and Yes no calf tenderness Psych Mental Status: mental status grossly normal Affect: normal affect Thought process: Normal thought process present Course Reevaluation(s) Reevaluation #1: Attempted to control epistaxis with topical cocaine, this was unsuccessful, bleeding continued. Will attempt topical TXA. Time: 13:59 Reevaluation #2: Bleeding continuing despite application of TXA, will attempt to visualize bleed and cauterize. Time: 14:26 Reevaluation #3: Bleeding stopped successfully with silver nitrate and Rhino Rocket as per procedure note. Patient's able to set up follow up with ENT at bedside. Will discharge patient home on prophylactic keflex. Return precautions discussed. Patient and verbalized understanding of and agreement with plan. Time: 15:19 Medications Administered Discontinued Medications Generic Name Dose Route Start Last Admin Trade Name Paty PRN Reason Stop Dose Admin Cocaine HCl 4 ml 05/23/24 12:33 05/23/24 12:41 Cocaine Hcl 4 % 4 Ml Solution TOPICAL 05/23/24 12:34 4 ml ONCE ONE Administration Protocol Silver Nitrate 1 appl 05/23/24 13:45 05/23/24 14:10 Silver Nitrate Applicator Stick..Ea. TOPICAL 05/23/24 13:46 1 appl ONCE ONE Administration Tranexamic Acid 500 mg 05/23/24 14:08 05/23/24 14:09 Tranexamic Acid 1,000 Mg/10 Ml Vial INTRANASAL 05/23/24 14:09 500 mg ONCE ONE Administration Procedures Epistaxis Control Time Out Performed: Yes Nostril: Yes left Nose prepped with: Yes cocaine 4% and Yes other (TXA) Direct inspection: Yes anterior source identified Direct inspection method: Yes nasal speculum Clots removed by: Yes blowing nose and Yes suction Epistaxis treatment: Yes TXA soaked gauze, Yes silver nitrate cautery and Yes other (Rhino Rocket 5.5) Results of treatment: Yes bleeding controlled and Yes treatment well tolerated Complications: Yes none Medical Decision Making Medical Decision Making [facility] Narrative: Patient is a 73-year-old male with history of KS on plavix, CAD, HTN, atherosclerotic cardiovascular disease presenting to the emergency department with complaint of epistaxis since 9:00 a.m. today. On exam patient is awake, A+Ox3, BP elevated, VS otherwise WNL, afebrile, normal neurological exam without focal deficits, physical exam findings as above. Given reported symptoms and physical exam findings, initial differential includes but is not limited to anterior epistaxis, posterior epistaxis. Anterior bleeding able to be identified, will apply topical cocaine and reassess. Labs notable for mild anemia not at transfusable level, PT/INR WNL. See course for remainder of clinical decision making. Differential Diagnosis Differential Diagnoses: The differential diagnosis associated with the presentation includes As per [facility] Lab Data [facility] Lab Attestation statement: I reviewed the patient's lab results. As per [facility] 05/23/24 10:46 05/23/24 10:46 Labs: Lab Results 05/23/24 Range/Units 10:46 WBC 5.8 (4.8-10.8) X10*3/uL RBC 3.73 L (4.60-5.80) X10*6/uL Hgb 12.0 L (14.0-18.0) g/dl Hct 35.4 L (42.0-52.0) % MCV 94.9 (80.0-98.0) fL MCH 32.2 (27.0-33.0) pg MCHC 33.9 (31.0-36.0) g/dl RDW 13.9 (11.0-16.0) % Plt Count 179 (160-400) X10*3/uL MPV 10.7 (9.4-12.4) fL Immature Gran % (Auto) 0.3 (0.0-0.4) % Neut % (Auto) 70.4 (45-73) % Lymph % (Auto) 18.2 L (20-40) % [place] % (Auto) 7.6 (2-11) % Eos % (Auto) 2.8 (0-4) % Baso % (Auto) 0.7 (0-2) % Lymph # (Auto) 1.1 L (1.2-4.9) X10*3/uL [place] # (Auto) 0.4 (0.1-1.2) X10*3/uL Eos # (Auto) 0.2 (0.0-0.4) X10*3/uL Baso # (Auto) 0.0 (0.0-0.2) X10*3/uL Abs Immat Gran (auto) 0.02 (0.00-0.03) X10*3/uL Absolute Neuts (auto) 4.1 (2.0-8.3) x10*3/uL Absolute Nucleated RBC 0.000 (0.0-0.012) X10*3/uL Nucleated RBC % (auto) 0.0 (0.0-0.2) /100WBC PT 10.6 L (10.9-12.4) SEC INR 0.9 (0.9-1.1) Sodium 139 (135-145) mmol/L Potassium 4.4 (3.3-5.1) mmol/L Chloride 109 H (96-108) mmol/L Carbon Dioxide 24 (22-29) mmol/L Anion Gap 10 L (12-20) BUN 16 (9-16) mg/dL Creatinine 0.77 (0.5-1.4) mg/dL Estim Creat Clear Calc 78.2 Estimated GFR > 60 Random Glucose 108 (60-115) mg/dL Calcium 8.6 D (8.4-10.2) mg/dL Total Bilirubin 0.3 (0.0-1.0) mg/dL AST 25 (5-37) U/L ALT 25 (0-40) U/L Alkaline Phosphatase 42 (39-117) U/L Total Protein 5.9 L (6.5-8.0) g/dL Albumin 3.8 (3.5-5.0) g/dL Independent Historian Clinical information obtained from an independent historian. History obtained from or confirmed by: Spouse External Record Review External record reviewed: Inpatient record, Office record and Outpatient record Prescription Management I considered prescription management with: Antibiotic Discharge Plan Discharge Clinical Impression: Epistaxis Patient Disposition: Home, Self-Care Instructions: Nosebleed (ED) Additional Instructions: You have been evaluated in the emergency department today for a nosebleed. The bleeding was controlled in the ER with cautery and a Rhino Rocket. The Rhino Rocket will need to stay in place for the next 3-4 days until you follow up with Dr. Pizarro. You are being started on a course of antibiotics to prevent infection. Complete the full course as prescribed. Return to the emergency department if you experience worsening or uncontrolled bleeding, bleeding around the Rhino Rocket, shortness of breath, feeling lightheaded or dizzy, loss of consciousness, fainting, nausea or vomiting, chest pain, or for any other concerning symptoms. Prescriptions: New cephalexin 500 mg capsule 500 mg PO QID Qty: 20 0RF No Action atorvastatin 80 mg tablet 80 mg PO QPM Qty: 90 3RF clopidogrel 75 mg tablet 75 mg PO DAILY Qty: 90 3RF valsartan 40 mg tablet 40 mg PO BID Qty: 180 6RF metoprolol succinate 50 mg tablet extended release 24 hr 50 mg PO DAILY Qty: 90 3RF aspirin 81 mg tablet,delayed release (DR/EC) 81 mg PO DAILY cholecalciferol (vitamin D3) 50 mcg (2,000 unit) capsule 50 mcg PO DAILY alfuzosin 10 mg tablet extended release 24 hr 10 mg PO DAILY Rx Instructions: administer after the same meal each day Referrals: Kirk Pizarro MD [Physician] - Print Language: Algerian
[2024-05-23 12:35] LABS: Alanine Aminotransferase 25 U/L (0-40); Albumin Level 3.8 g/dL (3.5-5.0); Alkaline Phosphatase 42 U/L (39-117); Anion Gap 10 (12-20); Aspartate Amino Transferase 25 U/L (5-37); Bilirubin Total 0.3 mg/dL (0.0-1.0); Blood Urea Nitrogen 16 mg/dL (9-16); Calcium 8.6 mg/dL (8.4-10.2); Carbon Dioxide 24 mmol/L (22-29); Chloride 109 mmol/L (96-108); Creatinine Clr Calc Pharmacy 78.2; Estimated Glomerular Filt Rate > 60; Glucose Random 108 mg/dL (60-115); Potassium 4.4 mmol/L (3.3-5.1); Sodium 139 mmol/L (135-145); Total Protein 5.9 g/dL (6.5-8.0)
[2024-05-23] MEDS: Cocaine HCl 4 % 4 ML SOLUTION TOPICAL (12:41)
[2024-05-23] MEDS: Tranexamic Acid 1,000 MG/10 ML VIAL 500 MG INTRANASAL (14:09)
[2024-05-23] MEDS: Silver Nitrate Applicator STICK..EA. 1 APPL TOPICAL (14:10)
[2024-05-23 15:20] VITALS: BP 117/69; PULSE 97; RESP 16; TEMP 36.5; O2SAT 97
[2024-05-23 15:21] VITALS: BP 117/69; PULSE 97; RESP 16; TEMP 36.5; O2SAT 97
== END 2024-05-23 15:23 | disposition home or self-care (01) ==
PROVIDERS: Emergency Provider Emergency Medicine Emergency Medical Services; PCP Internal Medicine
DX: R04.0 Epistaxis (principal); Z79.899 Other long term (current) drug therapy
CPT/HCPCS: 30901; 36415; 80053; 85025; 85610; 99284; C9143

== ENCOUNTER 2024-06-13 09:24 | Outpatient (REF) | payer MEDICARE, SELFPAY ==
--- NOTE | ~2024-06-13 | CT_ITS ---
CLINICAL HISTORY: Z87.891 - Personal history of nicotine dependence CT lung cancer screening (LDCT) Comparison: CT/MD/SR - CT LUNG SCREENING - 06/09/23 10:14 EDT Technique: Axial CT images of the chest using low-dose technique. Referring provider counseled the patient on shared decision-making for LDCT screening. Additional counseling was provided on smoking cessation. Effective radiation dose total: DLP 44 mGycm, CTDIvol 1.3 mGy. Findings: Lung: Stable 2 mm left lower lobe nodule on image 131. Stable 2 mm right upper lobe nodule on image 56. No new pulmonary nodule. Coronary artery calcifications: Severe Limited upper abdomen: 2.4 cm circumscribed low-density lesion within the left lobe of the liver without change, most likely representing a benign lesion. A tiny gallstone is present. Other: Partial visualization of an endograft within the abdominal aorta. Prior sternotomy. Small hiatal hernia. Impression: Category 2: Benign appearance or behavior. Continue annual screening. ##L2 # # Category 1: Normal; continue annual screening Category 2: Benign appearance or behavior, continue annual screening Category 3: Probably benign, [address] recommended Category 4A: Suspicious, [address] recommended; may consider PET/CT Category 4B: Suspicious, Additional diagnostics and/or tissue sampling recommended Category 4X: Suspicious, Additional diagnostics and/or tissue sampling recommended Category 0: Recalls (incomplete screen due to Incomplete coverage, Noise, Respiratory motion, Expiration, Obscured by acute abnormality) This document has been electronically signed by: Ellie Dueñas MD on 06/14/2024 15:24:33
--- OUTSIDE RECORDS SUMMARY | 2024-06-13 10:26 | XMS_ITS | Data Portability ---
Author Organization [place] - [facility], Allergy Address [address] [address] Care Team Providers Care Out Of School Hours Care Worker Name Role Phone ROSENDO PATEL Primary Care [...] heart disease. [email or web address] Not available 01/10/2024 14:56:25 05/26/2024 05/26/2024 Patient with epistaxis requiring emergent nasal packing. The rapid rhino was removed today without difficulty. Patient did not have any further bleeding following pack removal. I recommend use of nasal saline spray and a water-based lubricant intranasally several times a day over the next few weeks. Epistaxis precautions discussed and patient handout given. Follow up as needed if bleeding recurs. [email or web address] Not available 05/26/2024 16:03:12 Plan of Treatment Reminders Order Date Submit [...] By Organization Details Last Modified Time 01/10/2024 [id number] nosebleed information [email or web address] Not available 01/10/2024 14:56:26 Reason for Referral None Reported. Problems Name Problem SNOMED Code Status Onset Date Resolution Date Notes Provider Name and Address Organization Details Recorded Time Bleeding from nose 936359708 Active 2022 Epistaxis; Note: Date Diagnosed: 09/21/2022 10:54 AM (R04.0) Not Available [facility] 02:57:21 Sudden idiopathi c hearing loss 263732182 Active 2023 Sudden idiopathic hearing loss, right ear; Note: Date Diagnosed: 03/31/2023 2:38 PM (H91.21) Not Available [facility] 02:57:20 Sensorine ural hearing loss of bilateral ears 411451601 Active 2023 Sensorineu ral hearing loss, bilateral; Note: Date Diagnosed: 03/31/2023 2:04 PM (H90.3) Not Available [facility] 02:57:22 Problem Notes None recorded. Procedures Surgical History Date Name Laterality Status Provider Name and Address Organization Details Recorded Time repair of aneurysm of abdominal aorta completed MILADIS MENDOZA MD [address] [place] [address], [phone], [facility] 01/10/2024 14:51:24 coronary artery bypass graft completed MILADIS MENDOZA MD [address] [place] [address], [phone], [facility] 01/10/2024 14:51:33 placement of stent in cardiac conduit completed MILADIS MENDOZA MD [address] [place] [address], [phone], [facility] 01/10/2024 14:51:41 Imaging Results None recorded. [...] tended release 24 hr TAKE 1 TABLET DAILY active Not Available Not Available No t Available prednison e 20 mg tablet TAKE 3 TABLETS BY MOUTH EVERY DAY FOR 10 DAYS 01/09 completed Not Available Not Available Not Available clopidogr el 75 mg tablet TAKE 1 TABLET DAILY active Not Available Not Available No t Available tamsulosi n 0.4 mg capsule active Medicati on ID: [id number] B rand Name: tamsulos in Send Method: E-Prescr ibed Sub s Allowed: subs OK Medic ationGen ericName : tamsulos in Not Available Not Available Not Available amlodipin e 10 mg tablet active Medicati on ID: [id number] B rand Name: amlodipi ne Send Method: E-Prescr ibed Sub s Allowed: subs OK Medic ationGen ericName : amlodipi ne Not Available Not Available Not Available cephalexi n 500 mg capsule TAKE 1 CAPSULE BY MOUTH FOUR TIMES DAILY active Not Available Not Available No t Available metoprolo l succinate ER 25 mg tablet,ex tended release 24 hr TAKE 2 TABLETS BY MOUTH EVERY DAY active Not Available Not Available No t Available amoxicill in 875 mg-potass ium clavulana te 125 mg tablet TAKE 1 TABLET BY MOUTH TWICE DAILY FOR 7 DAYS 01/09 completed Not Available Not Available Not Available valsartan 40 mg tablet TAKE 1 TABLET TWICE A DAY active Not Available Not Available No t Available alfuzosin ER 10 mg tablet,ex tended release 24 hr TAKE 1 TABLET AT BEDTIME (CANCEL AND STOP TAMSULOS IN) active Not Available Not Available No t Available Vitals Date Recorded Body height Body mass index (BMI) Body weight Provider Name and Address Organization Details Last Updated DateTime 05/26/2024 167.64 cm 27 kg/m2 99883.93 g Corin Ross ID - [facility] 05/26/2024 15:25:24 Date Recorded Body height Body mass index (BMI) Body weight Provider Name and Address Organization Details Last Updated DateTime 01/10/2024 167.64 cm 27 kg/m2 99252.93 g Bj Bergman ID - [facility] 01/10/2024 14:46:35 Social History None recorded. Functional Status None recorded. Mental Status None recorded. Family History Nothing Reported. Medical History Condition Response Heart Problems Y Past Encounters Encounter ID Performer Location Encounter Start Date Encounter Closed Date Diagnosis/Indication Diagnosis SNOMED-CT Code Diagnosis ICD10 Code Diagnosis Note [id number] MILADIS NORWOOD MD [facility] [address] [place] [address] 01/10/2024 14:30:35 01/10/2024 14:58:50 Bleeding from nose 904876125 R04.0 Long-term current use of antiplatelet drug 2632820288 44506 Z79.02 [id number] KINJAL COLMENARES MD [facility] [address] [place] [address] 05/26/2024 14:56:30 05/26/2024 15:40:29 Bleeding from nose 344682342 R04.0 Health Concerns Section Related Observation LastModified by Organization Detai ls LastModified Time None Recorded Concern Status LastModified by Organization Details LastModified Time None Recorded Advance Directives Directive None Recorded Payers Encounter Date Sequence Insurance Name Policy Number Policy Cage Covered Member ID Cage Member ID Guarantor Name 01/10/2024 2 [place] [id number] Mario W Sowmya [id number] [place] 01/10/2024 1 [place] [employer] [employer] Mario W Sowmya [id number] 1 [place] 05/26/2024 2 [place] [id number] Mario W Sowmya [id number] [place] W [place] 05/26/2024 1 [place] [employer] Mario W Sowmya [id number] 1 [place] Notes Date Note Type Note Provider Name and Address Organization Details Recorded Time 01/10/2024 text/html Hx of epistaxis, septal deviation, and nasal crusting. No bleeding for months. Anxious about crusting as he is on Plavix again. No CP or SOB. Recent MD and had another stent in October. on ASA and Plavix MILADIS MENDOZA MD [address], [address], [facility] - [facility] 01/10/2024 14:56:55 05/26/2024 text/html 73-year-old male presents for rapid Rhino removal. He is on chronic blood thinner for heart issues. Has had bleeding in the past. Current rapid Rhino on the left side was placed on Wednesday. Has had no further bleeding. Typically uses saline, Ponaris, and occasionally K-Y jelly. KINJAL COLMENARES MD [address] [place] [address], [phone], [facility] - [facility] 05/26/2024 16:53:29
== END 2024-06-13 09:25 | disposition home or self-care (01) ==
LOC: HO.CT 09:24
PROVIDERS: PCP Internal Medicine; Visit Provider Physician Assistant Medical
DX: Z12.2 Encounter for screening for malignant neoplasm of respiratory organs (principal); Z87.891 Personal history of nicotine dependence
CPT/HCPCS: 71271

== ENCOUNTER → 2024-06-13 09:26 | Outpatient (BNV) | payer MEDICARE, SELFPAY | PROVIDERS: PCP Internal Medicine; Visit Provider Radiology Diagnostic Radiology | DX: Z12.2 Encounter for screening for malignant neoplasm of respiratory organs (principal); Z87.891 Personal history of nicotine dependence | CPT/HCPCS: 71271 ==

== ENCOUNTER 2024-06-14 09:08 | Outpatient (AMB) | payer MEDICARE, SELFPAY ==
[2024-06-14 09:13] VITALS: BP 118/62; PULSE 78; BMI 26.0
--- NOTE | 2024-06-14 09:13 | MHC.OFFVIS ---
Vital Signs 06/14/24 09:13 Height 5 ft 6 in Weight 160 lb 14.999 oz BMI 26.0 BP 118/62 Blood Pressure Location Lt brachial Position Sitting Pulse 78 Pulse Source Pulse Oximeter Intake Visit Reasons: 6m follow up Allergies ezetimibe [From Zetia] Adverse Reaction (Verified 05/23/24 10:34) Elevated LFTS Medication List - Last Reconciled 06/14/24 by Kurt Wright MD alfuzosin ER 10 mg PO DAILY aspirin 81 mg PO DAILY atorvastatin 80 mg PO QPM cholecalciferol (vitamin D3) 50 mcg PO DAILY clopidogrel 75 mg PO DAILY metoprolol succinate ER 50 mg PO DAILY valsartan 40 mg PO BID HPI Comments Details: Mario returns for follow-up regarding coronary disease. To recall, in 2016, he was admitted for NSTEMI. Cardiac catheterization showed culprit vessel being in the venous graft to the diagonal branch and this was stented. In May 2019, another NSTEMI; underwent cardiac catheterization. Culprit lesion was vein graft to diagonal consistent with very late stent thrombosis, treated with drug-eluting stenting. Yet another STEMI 10/2023 leading to catheterization. Again, vein graft to diagonal was stented. The occlusion was distal to the prior stent. He also got thrombolytics due to delay in getting him to the quality lab technician. Otherwise, he has had issues with abnormal LFTs and was briefly off cholesterol medications but then back on them again. No longer on Zetia. Recent nosebleed issues and it seems he went to ENT and got cauterized. That has stopped but he is getting other symptoms like stuffy nose, shortness of breath, generalized tiredness. No angina. He feels shortness of breath even when he is sitting and doing nothing. Seems more so that his nose may be blocked which gives him sensation of shortness of breath. He is also worried about sleeping and feeling short of breath and hence gets poor sleep which makes him even more anxious and causes daytime tiredness. [facility] Medical History (Updated 06/14/24 @ 12:22 by Kurt Wright MD) History of AL (myocardial infarction) Personal history of nicotine dependence CAD (coronary artery disease) Abnormal LFTs Hyperlipidemia, unspecified Essential hypertension Subsequent ST elevation (STEMI) myocardial infarction Atherosclerotic cardiovascular disease Surgical History History of cardiac cath History of endoscopy History of colonoscopy History of AAA (abdominal aortic aneurysm) repair (~2018) History of tonsillectomy History of heart artery stent History of coronary artery bypass graft (~2002) Family History Father Myocardial infarction Stroke Mother No problems noted. Social History Alcohol intake: current Alcohol intake frequency: 0-2 drinks per day Alcohol type: beer Patient Tobacco Use Status: Former Tobacco user Years Smoked: (former smoker - onset 15yo, 1-1.5ppd x 46yrs, 50pyh - quit 09/14/2011) Substance Use Type: Marijuana Review of Systems Const Reports fatigue and Denies weakness ENT Denies dizziness Card Denies chest pain, Denies chest pain with activity, Denies syncope, Denies rapid heart rate, Denies pedal edema, Denies edema, Denies leg edema, Denies lightheadedness, Denies palpitations, Reports dyspnea, Denies dyspnea on exertion and Denies orthopnea Resp Denies cough, Reports dyspnea and Denies dyspnea on exertion GI Denies hematochezia and Denies change in stool character Musc Denies abnormal gait, Denies muscle cramps, Denies muscle weakness, Denies numbness, Denies radiating pain into limb and Denies tingling Neuro Denies abnormal gait, Denies dizziness, Denies syncope, Denies numbness, Denies tingling and Denies weakness Endo Reports fatigue and Denies palpitations Physical Exam Vital Signs: Last Vital Signs Pulse 78 06/14/24 09:13 BP 118/62 06/14/24 09:13 BMI result Body Mass Index 26.0 Const General: comfortable and no acute distress Orientation/consciousness: patient oriented x3 HEENT Other: Unremarkable Head: Yes normal to inspection Neck Neck: Yes normal visual inspection Chest Chest palpation & inspection: normal inspection of the chest Resp Auscultation: clear to auscultation bilaterally Cardio Palpation: normal PMI Heart sounds: S1 normal heart sound present, S2 normal heart sound present, no gallops, no murmurs and no rubs GI Palpation (GI): Soft to palpation Back/Spine/Pelvis Other: unremarkable Skin General skin exam: no rashes or lesions noted Neuro General: patient oriented x3 Extrem General: Yes normal to inspection Psych Mental Status: mental status grossly normal Assessment & Plan Assessment & Plan (1) Atherosclerotic cardiovascular disease: Code(s): I25.10 - Atherosclerotic heart disease of [place] coronary artery without angina pectoris Category: Medical Plan: Cardiac catheterization data reviewed. Severe [place] disease. ALBARRAN to LAD is patent. Vein graft to PDA is occluded. Radial to OM2 is patent. In the vein graft to 1st diagonal, occlusion distal to prior stent. Thought to be very late stent thrombosis. Continue long-term aspirin/Plavix. Otherwise, previously advised to stop marijuana use. Clinically, no angina. (2) Ischemic cardiomyopathy: Code(s): I25.5 - Ischemic cardiomyopathy Category: Medical Plan: Echocardiogram at [facility] with LVEF of 35-40% with wall motion abnormalities from underlying coronary disease. In the repeat study, LVEF is 45-50%. Wall motion abnormalities are noted. Clinically, no heart failure symptoms or signs. (3) Aortic valve sclerosis: Code(s): I35.8 - Other nonrheumatic aortic valve disorders Category: Medical Plan: Echocardiogram shows mild aortic stenosis. We can monitor. (4) Essential hypertension: Code(s): I10 - Essential (primary) hypertension Category: Medical Plan: In the past, had reported tiredness with higher dose of beta-lyly as well as low blood pressure with lisinopril. Recently stable. (5) Hyperlipidemia, unspecified: Code(s): E78.5 - Hyperlipidemia, unspecified Category: Medical Plan: Continue statins. With Zetia, he has had LFT issues. Overall, controlled lipids. LDL at [facility] 56 mg/dL. Triglycerides 31 mg/dL. (6) Frequent epistaxis: Code(s): R04.0 - Epistaxis Category: Medical Plan: Status post cauterization. Labs checked today and shows anemia. Could be because of significant nasal bleeding. May contribute to tiredness and fatigue. Can follow this through PCP. (7) Shortness of breath: Code(s): R06.02 - Shortness of breath Category: Medical Plan: Suspect this is due to nasal blockage than anything cardiac. Advised him to see ENT. Plan Discussion Notes I have explained to the patient that his shortness of breath could be related to both the nasal obstruction from recent epistaxis and possible anemia from blood loss. The plan includes re-evaluation of his hemoglobin levels and follow-up with an ENT specialist to determine the cause of nasal blockage. We discussed that while the heart-related issues appeared stable during this evaluation, vigilance is required due to his past myocardial infarction. The patient understands the risks of nasal spray overuse and agrees to the current treatment using saline and ointments. The patient is amenable to follow-up instructions and ENT specialist referral to ensure all issues are addressed. Patient was informed and verbally consented to the use of an ambient scribe for clinic note documentation during this visit. Orders: Orders Complete Blood Count no Diff Today D64.9 - Anemia, unspecified Patient Instructions: - Schedule and attend follow-up with an ENT specialist promptly. - Recheck hemoglobin levels as planned to monitor anemia status. - Minimize use of Afrin nasal spray to prevent rebound congestion. - Continue using saline irrigation and nasal ointments as advised. - Monitor any changes in breathing, and seek immediate care if symptoms worsen. Coding Level of Care Code Est Pt Level 4 (97856) Complex EM visit Add On G2211 Diagnoses Atherosclerotic cardiovascular disease I25.10 Ischemic cardiomyopathy I25.5 Aortic valve sclerosis I35.8 Essential hypertension I10 Hyperlipidemia, unspecified E78.5 Frequent epistaxis R04.0 Shortness of breath R06.02
== END 2024-06-14 09:45 | disposition home or self-care (01) ==
PROVIDERS: PCP Internal Medicine; Visit Provider Internal Medicine
DX: I25.10 Atherosclerotic heart disease of native coronary artery without angina pectoris (principal); I25.5 Ischemic cardiomyopathy; I35.8 Other nonrheumatic aortic valve disorders; I10 Essential (primary) hypertension; E78.5 Hyperlipidemia, unspecified; R04.0 Epistaxis; R06.02 Shortness of breath
CPT/HCPCS: 99214; G2211

== ENCOUNTER 2024-06-14 09:08 | Outpatient (REF) | payer MEDICARE, SELFPAY ==
[2024-06-14 10:48] LABS: Hematocrit 32.7 % (42.0-52.0); Hemoglobin 10.7 g/dl (14.0-18.0); Mean Corpuscular HGB Conc 32.7 g/dl (31.0-36.0); Mean Corpuscular Hemoglobin 30.1 pg (27.0-33.0); Mean Corpuscular Volume 92.1 fL (80.0-98.0); Mean Platelet Volume 10.3 fL (9.4-12.4); Platelet Count 255 X10*3/uL (160-400); Red Blood Count 3.55 X10*6/uL (4.60-5.80); Red Cell Distribution Width 13.1 % (11.0-16.0); White Blood Count 7.8 X10*3/uL (4.8-10.8)
--- OUTSIDE RECORDS SUMMARY | 2024-06-14 11:07 | XMS_ITS | Data Portability ---
Author Organization [place] - [facility], Allergy Address [address] [address] Care Team Providers Care Lode [employer] Name Role Phone ROSENDO PATEL Primary Care [...] Follow up as needed if bleeding recurs. [email or web address] Not available 05/26/2024 16:03:12 Plan of Treatment Reminders Order Date Submit Date Provider Last Modified By Organization Details Last Modified Time Details Appointments Establish ed 20 2024 02:00P M LANDEN BUSTILLOS MD Not available Not available Not available Lab None recorded. Referral None recorded. Procedures None recorded. Surgeries None recorded. Imaging None recorded. Medication Orders None recorded. Patient TargetsNo targets recorded. Patient Instructions Encounter Date Encounter Id Patient Instructions Last Modified By Organization Details Last Modified Time 01/10/2024 [id number] nosebleed information [email or web address] Not available 01/10/2024 14:56:26 Reason for Referral None Reported. Problems Name Problem SNOMED Code Status Onset Date Resolution Date Notes Provider Name and Address Organization Details Recorded Time Bleeding from nose 076122654 Active 2022 Epistaxis; Note: Date Diagnosed: 09/21/2022 10:54 AM (R04.0) Not Available [facility] 02:57:21 Sudden idiopathi c hearing loss 950652952 Active 2023 Sudden idiopathic hearing loss, right ear; Note: Date Diagnosed: 03/31/2023 2:38 PM (H91.21) Not Available [facility] 02:57:20 Sensorine ural hearing loss of bilateral ears 997682195 Active 2023 Sensorineu ral hearing loss, bilateral; Note: Date Diagnosed: 03/31/2023 2:04 PM (H90.3) Not Available [facility] 02:57:22 Problem Notes None recorded. Procedures Surgical History Date Name Laterality Status Provider Name and Address Organization Details Recorded Time repair of aneurysm of abdominal aorta completed MILADIS MENDOZA MD [address] [place] [address], [phone], [facility] 01/10/2024 14:51:24 coronary artery bypass graft completed MILADIS MENDOZA MD [address] [place] [address], [phone], [facility] 01/10/2024 14:51:33 placement of stent in cardiac conduit completed MILADIS MENDOZA MD [address] [place] [address], [phone], [facility] 01/10/2024 14:51:41 Imaging Results None recorded. Procedure [...] 0.4 mg capsule active Medicati on ID: [id number] B rand Name: tamsulos in Send Method: E-Prescr ibed Sub s Allowed: subs [place] Medic ationGen ericName : tamsulos in Not Available Not Available Not Available amlodipin e 10 mg tablet active Medicati on ID: [id number] B rand Name: amlodipi ne Send Method: [...] Updated DateTime 05/26/2024 167.64 cm 27 kg/m2 67393.93 g Corin Ross [place] - [facility] 05/26/2024 15:25:24 Date Recorded Body height Body mass index (BMI) Body weight Provider Name and Address Organization Details Last Updated DateTime 01/10/2024 167.64 cm 27 kg/m2 52447.93 g Bj Bergman [facility] 01/10/2024 14:46:35 Social History None recorded. Functional Status None recorded. Mental Status None recorded. Family History Nothing Reported. Medical History Condition Response Heart Problems Y Past Encounters Encounter ID Performer Location Encounter Start Date Encounter Closed Date Diagnosis/Indication Diagnosis SNOMED-CT Code Diagnosis ICD10 Code Diagnosis Note [id number] MILADIS NORWOOD MD [facility] [address] [address] 01/10/2024 14:30:35 01/10/2024 14:58:50 Bleeding from nose 363756081 R04.0 Long-term current use of antiplatelet drug 6879673788 00498 Z79.02 [id number] KINJAL COLMENARES MD [facility] [address] [place] [address] 05/26/2024 14:56:30 05/26/2024 15:40:29 Bleeding from nose 411336768 R04.0 Health Concerns Section Related Observation LastModified by Organization Detai ls LastModified Time None Recorded Concern Status LastModified by Organization Details LastModified Time None Recorded Advance Directives Directive None Recorded Payers Encounter Date Sequence Insurance Name Policy Number Policy Cage Covered Member ID Cage Member ID Guarantor Name 01/10/2024 2 [place] [id number] [place] W Sowmya Jr [id number] Mario W Sowmya 01/10/2024 1 [place] Mario W Sowmya [id number] 1 [place] W [place] 05/26/2024 2 [place] [id number] [place] W Sow[place] Jr [id number] [place] W [place]a 05/26/2024 1 [place] [employer] [place] W [place] [id number] 1 Mario W Sowmya Notes Date Note Type Note Provider Name and Address Organization Details Recorded Time 01/10/2024 text/html Hx of epistaxis, septal deviation, and nasal crusting. No bleeding for months. Anxious about crusting as he is on Plavix again. No CP or SOB. Recent [place] and had another stent in October. on ASA and Plavix MILADIS MENDOZA MD [address], [address], [facility] - [facility] 01/10/2024 14:56:55 05/26/2024 text/html 73-year-old male presents for rapid Rhino removal. He is on chronic blood thinner for heart issues. Has had bleeding in the past. Current rapid Rhino on the left side was placed on Wednesday. Has had no further bleeding. Typically uses saline, Ponaris, and occasionally K-Y jelly. KINJAL COLMENARES MD [address] [place] [address], [phone], [facility] - [facility] 05/26/2024 16:53:29
== END 2024-06-14 09:09 | disposition home or self-care (01) ==
LOC: HO.LAB 09:08
PROVIDERS: PCP Internal Medicine; Referring Provider Internal Medicine; Visit Provider Internal Medicine
DX: I25.10 Atherosclerotic heart disease of native coronary artery without angina pectoris (principal); D64.9 Anemia, unspecified; I25.5 Ischemic cardiomyopathy; I35.8 Other nonrheumatic aortic valve disorders; I10 Essential (primary) hypertension; E78.5 Hyperlipidemia, unspecified; R04.0 Epistaxis; R06.02 Shortness of breath
CPT/HCPCS: 36415; 85027; 99212

== ENCOUNTER 2024-06-20 10:47 | Outpatient (REF) | payer MEDICARE, SELFPAY ==
[2024-06-20 10:49] LABS: MANUAL DIFF FLAG NO
[2024-06-20 11:18] LABS: Basophils Percent Auto 0.6 % (0-2); Eosinophils Absolute Auto 0.3 X10*3/uL (0.0-0.4); Eosinophils Percent Auto 5.6 % (0-4); Hematocrit 30.7 % (42.0-52.0); Imm Gran Abs Auto 0.01 X10*3/uL (0.00-0.03); Imm Gran Pct Auto 0.2 % (0.0-0.4); Lymphocytes Absolute Auto 1.5 X10*3/uL (1.2-4.9); Lymphocytes Percent Auto 28.8 % (20-40); Mean Corpuscular HGB Conc 32.6 g/dl (31.0-36.0); Mean Corpuscular Volume 92.2 fL (80.0-98.0); Mean Platelet Volume 10.6 fL (9.4-12.4); Monocytes Absolute Auto 0.5 X10*3/uL (0.1-1.2); Monocytes Percent Auto 9.7 % (2-11); Neutrophils Absolute Auto 2.8 x10*3/uL (2.0-8.3); Neutrophils Percent Auto 55.1 % (45-73); Platelet Count 257 X10*3/uL (160-400); Red Blood Count 3.33 X10*6/uL (4.60-5.80); Red Cell Distribution Width 13.4 % (11.0-16.0)
[2024-06-20 11:35] LABS: Iron 19 mcg/dL (45-160); Percent Iron Saturation 7 % (15-50); Total Iron Binding Capacity 287 mcg/dL (228-428); Unsaturated Iron Binding 268 ug/dL
--- OUTSIDE RECORDS SUMMARY | 2024-06-20 12:48 | XMS_ITS | Data Portability ---
Author Organization [place] - [facility], Allergy Address [address] [address] Care Team Providers Care Scientific Photographer Name Role Phone ROSENDO PATEL Primary Care [...] and Plavix due to his heart disease. lamar Not available 01/10/2024 14:56:25 05/26/2024 05/26/2024 Patient [...] Follow up as needed if bleeding recurs. [email or web address] Not available 05/26/2024 16:03:12 06/14/2024 06/14/2024 73yo who present s today for follow-up for epistaxis. Previously seen by Dr. Mendoza - given conservative measures including humidification. This has worke for about 1 year. 3 weeks ago he had a severe bleed on the left - rhinorocket placed in the left nasal cavity. He continues to have bloody drainage from the left nasal cavity. Takes plavix On exam, there is excoriation along the medial aspect of the inferior turbinate, likely from prior rhinorocket which is likely the origin of his drainage and residual blood staining. 1. Epistaxis I had a long discussion with the patient regarding their complaint, examination and diagnosis. We discussed that epistaxis is a common problem usually resulting from nasal irritations and dryness. It is often exacerbated in the winter time due to dryness from heating, but can be problematic due to trauma or aberrant anatomy. The purpose of examination is to identify the source of bleeding but also to make sure there is not a more concerning underlying problem causing the nosebleeding. We discussed methods to prevent nose bleeds including moisturing the nose, application of emollients such as vaseline, and humidification of the air. Techniques for treatment of acute bleeding were discussed and management in the event of bleeding that does not stop was outlined. -Vaseline intranasally BID -Humidifier for the bedroom -Saline nasal spray as needed to keep the nose moist -No digital manipulation -Use afrin 1 spray and apply pressure for 20 minutes for an acute bleeding episode -If bleeding does not resolve with conservative measures the patient was encouraged to go the nearest emergency room for treatment [email or web address] Not available 06/14/2024 17:02:01 Plan of Treatment Reminders Order Date Submit [...] By Organization Details Last Modified Time 01/10/2024 [id number] nosebleed information [email or web address] Not available 01/10/2024 14:56:26 Reason for Referral None Reported. Problems Name Problem SNOMED Code Status Onset Date Resolution Date Notes Provider Name and Address Organization Details Recorded Time Bleeding from nose 648374832 Active 2022 Epistaxis; Note: Date Diagnosed: 09/21/2022 10:54 AM (R04.0) Not Available [facility] 02:57:21 Sudden idiopathi c hearing loss 648259386 Active 2023 Sudden idiopathic hearing loss, right ear; Note: Date Diagnosed: 03/31/2023 2:38 PM (H91.21) Not Available [facility] 02:57:20 Sensorine ural hearing loss of bilateral ears 207047415 Active 2023 Sensorineu ral hearing loss, bilateral; Note: Date Diagnosed: 03/31/2023 2:04 PM (H90.3) Not Available [facility] 4 02:57:22 Recurrent bleeding of nose Active 2024 LANDEN BUSTILLOS MD [address],MARY ALICE [facility], [place], [address] , [facility] - [facility] 5 17:01:47 Problem Notes None recorded. Procedures Surgical History Date Name Laterality Status Provider Name and Address Organization Details Recorded Time NasalEndoscopy _DP completed LANDEN BUSTILLOS MD [facility] [place],[facility] ALICE [facility], [place], [address], [facility] - [facility] 06/14/2024 17:00:46 repair of aneurysm of abdominal aorta completed MILADIS MENDOZA MD [address] [facility] [place],[facility] ALICE [facility], [place], [address], [facility] - [facility] 01/10/2024 14:51:24 coronary artery bypass graft completed MILADIS MENDOZA MD 100 [facility] [place],[facility] ALICE [facility], [place], [address], [facility] - [facility] 01/10/2024 14:51:33 placement of stent in cardiac conduit completed MILADIS MENDOZA MD 100 [facility] [place],MARY ALICE [address] [place] [address], [address], [facility] - [facility] 01/10/2024 14:51:41 Imaging Results None recorded. Procedure Notes None recorded. Medical Equipment None Reported. Allergies No known drug allergies Medications Name Sig Start Date Stop Date [...] t Available tamsulosi n 0.4 mg capsule 06/14 completed Medicati on ID: [id number] B rand Name: tamsulos in Send Method: E-Prescr ibed Sub s Allowed: subs OK Medic ationGen ericName : tamsulos in Not Available Not Available Not Available amlodipin e 10 mg tablet 06/14 completed Medicati on ID: [id number] B rand Name: amlodipi ne Send Method: E-Prescr ibed Sub s Allowed: subs OK Medic ationGen ericName : amlodipi ne Not Available Not Available Not Available cephalexi n 500 mg capsule TAKE 1 CAPSULE BY MOUTH FOUR TIMES DAILY 06/14 completed Not Available Not Available Not Available metoprolo l succinate ER 25 mg tablet,ex tended release 24 hr TAKE 2 TABLETS BY MOUTH EVERY DAY 06/14 completed Not Available Not Available Not Available amoxicill [...] Updated DateTime 05/26/2024 167.64 cm 27 kg/m2 13992.93 g Corin Ross [facility] 05/26/2024 15:25:24 Date Recorded Body height Body mass index (BMI) Body weight Provider Name and Address Organization Details Last Updated DateTime 06/14/2024 167.64 cm 27 kg/m2 48431.93 g Leyda [place] - [facility] 06/14/2024 13:59:34 Date Recorded Body height Body mass index (BMI) Body weight Provider Name and Address Organization Details Last Updated DateTime 01/10/2024 167.64 cm 27 kg/m2 56419.93 g Bj Bergman [facility] 01/10/2024 14:46:35 Social History None recorded. Functional Status None recorded. Mental Status None recorded. Family History Nothing Reported. Medical History Condition Response Heart Problems Y Past Encounters Encounter ID Performer Location Encounter Start Date Encounter Closed Date Diagnosis/Indication Diagnosis SNOMED-CT Code Diagnosis ICD10 Code Diagnosis Note [id number] MILADIS NORWOOD MD [facility] [address] [address] 01/10/2024 14:30:35 01/10/2024 14:58:50 Bleeding from nose 850170333 R04.0 Long-term current use of antiplatelet drug 1470331425 68656 Z79.02 [id number] KINJAL COLMENARES MD [facility] [address] [address] 05/26/2024 14:56:30 05/26/2024 15:40:29 Bleeding from nose 965645686 R04.0 [id number] LANDEN BUSTILLOS MD [facility] [address] [place] [address] 06/14/2024 13:51:51 06/14/2024 14:28:09 Recurrent bleeding of nose 7365485387 102 R04.0 Health Concerns Section Related Observation LastModified by Organization Detai ls LastModified Time None Recorded Concern Status LastModified by Organization Details LastModified Time None Recorded Advance Directives Directive None Recorded Payers Encounter Date Sequence Insurance Name Policy Number Policy Cage Covered Member ID Cage Member ID Guarantor Name 01/10/2024 2 [place] [id number] Mario W Sowmya [id number] [place] W Sowmya 01/10/2024 1 [place] [employer] [place] W [place] [id number] 1 [place] W [place]ow[place]a 05/26/2024 2 [place] [id number] [place] W [place]ow[place]a Jr [id number] [place] W [place]ow[place]a 05/26/2024 1 [place] Mario W Sowmya [id number] 1 Mario W Sowmya 06/14/2024 2 [place] [id number] Mario W Sowmya Jr [id number] Mario W Sowmya 06/14/2024 1 [place] W [place] [id number] 1 Mario W Sowmya Notes Date Note Type Note Provider Name and Address Organization Details Recorded Time 01/10/2024 text/html Hx of epistaxis, septal deviation, and nasal crusting. No bleeding for months. Anxious about crusting as he is on Plavix again. No CP or SOB. Recent [place] and had another stent in October. on ASA and Plavix MILADIS MENDOZA MD 100 [facility],[place] [address], [place], [address], [place] - [facility] [place] 01/10/2024 14:56:55 05/26/2024 text/html 73-year-old male presents for rapid Rhino removal. He is on chronic blood thinner for heart issues. Has had bleeding in the past. Current rapid Rhino on the left side was placed on Wednesday. Has had no further bleeding. Typically uses saline, Ponaris, and occasionally K-Y jelly. KINJAL COLMENARES MD 100 [facility],[place] [address], [place], [address], [place] - [facility] [place] 05/26/2024 16:53:29 06/14/2024 text/html 73yo who present s today for follow-up for epistaxis.Previous ly seen by Dr. Mendoza - given conservative measures including humidification. This has worke for about 1 year.3 weeks ago he had a severe bleed on the left - rhinorocket placed in the left nasal cavity.He continues to have bloody drainage from the left nasal cavity. Takes plavix LANDEN BUSTILLOS MD 100 [facility] [address], [place], [address], [place] - [facility] [place] 06/14/2024 17:02:17
== END 2024-06-20 10:48 | disposition home or self-care (01) ==
LOC: HO.LNP 10:47
PROVIDERS: Visit Provider Internal Medicine
DX: D64.9 Anemia, unspecified (principal)
CPT/HCPCS: 83540; 85025

== ENCOUNTER 2024-08-04 11:57 | Outpatient (REF) | payer MEDICARE, SELFPAY ==
[2024-08-04 11:59] LABS: MANUAL DIFF FLAG NO
[2024-08-04 12:16] LABS: Basophils Percent Auto 0.7 % (0-2); Eosinophils Absolute Auto 0.2 X10*3/uL (0.0-0.4); Eosinophils Percent Auto 3.6 % (0-4); Hematocrit 38.1 % (42.0-52.0); Hemoglobin 12.6 g/dl (14.0-18.0); Imm Gran Abs Auto 0.03 X10*3/uL (0.00-0.03); Imm Gran Pct Auto 0.5 % (0.0-0.4); Lymphocytes Absolute Auto 1.6 X10*3/uL (1.2-4.9); Lymphocytes Percent Auto 27.4 % (20-40); Mean Corpuscular HGB Conc 33.1 g/dl (31.0-36.0); Mean Corpuscular Hemoglobin 29.6 pg (27.0-33.0); Mean Corpuscular Volume 89.4 fL (80.0-98.0); Mean Platelet Volume 11.3 fL (9.4-12.4); Monocytes Absolute Auto 0.8 X10*3/uL (0.1-1.2); Monocytes Percent Auto 12.9 % (2-11); Neutrophils Absolute Auto 3.2 x10*3/uL (2.0-8.3); Neutrophils Percent Auto 54.9 % (45-73); Platelet Count 194 X10*3/uL (160-400); Red Blood Count 4.26 X10*6/uL (4.60-5.80); White Blood Count 5.9 X10*3/uL (4.8-10.8)
--- OUTSIDE RECORDS SUMMARY | 2024-08-04 12:29 | XMS_ITS | Data Portability ---
Author Organization [place] - [facility], Allergy Address [address] [address] Care Team Providers Care Certified Legal Secretary Specialist Name Role Phone ROSENDO PATEL Primary Care [...] By Organization Details Last Modified Time 01/10/2024 [id number] nosebleed information [email or web address] Not available 01/10/2024 14:56:26 Reason for Referral None Reported. Problems Name Problem SNOMED Code Status Onset Date Resolution Date Notes Provider Name and Address Organization Details Recorded Time Bleeding from nose 018645995 Active 2022 Epistaxis; Note: Date Diagnosed: 09/21/2022 10:54 AM (R04.0) Not Available [facility] 02:57:21 Sudden idiopathi c hearing loss 689291963 Active 2023 Sudden idiopathic hearing loss, right ear; Note: Date Diagnosed: 03/31/2023 2:38 PM (H91.21) Not Available [facility] 02:57:20 Sensorine ural hearing loss of bilateral ears 449791252 Active 2023 Sensorineu ral hearing loss, bilateral; Note: Date Diagnosed: 03/31/2023 2:04 PM (H90.3) Not Available [facility] 4 02:57:22 Recurrent bleeding of nose Active 2024 LANDEN BUSTILLOS MD [address],MARY ALICE [facility], [place], [address] , [facility] - [facility] 5 17:01:47 Problem Notes None recorded. Procedures Surgical History Date Name Laterality Status Provider Name and Address Organization Details Recorded Time NasalEndoscopy _DP completed LANDEN BUSTILLOS MD 100 [facility] [place],[facility] ALICE [facility], [place], [address], [facility] - [facility] 06/14/2024 17:00:46 repair of aneurysm of abdominal aorta completed MILADIS MENDOZA MD 100 [facility] [place],[facility] ALICE [facility], [place], [address], [facility] - [facility] 01/10/2024 14:51:24 coronary artery bypass graft completed MILADIS MENDOZA MD 100 [facility] [place],[facility] ALICE [facility], [place], [address], [facility] - [facility] 01/10/2024 14:51:33 placement of stent in cardiac conduit completed MILADIS MENDOZA MD 100 [facility] [place],MARY ALICE [address] [place] [address], [address], [facility] - [facility] 01/10/2024 14:51:41 Imaging Results None recorded. [...] mg capsule 06/14 completed Medicati on ID: [id number] B rand Name: tamsulos in Send Method: E-Prescr ibed Sub s Allowed: subs OK Medic ationGen ericName : tamsulos in Not Available Not Available Not Available amlodipin e 10 mg tablet 06/14 completed Medicati on ID: [id number] B rand Name: amlodipi ne Send Method: [...] Updated DateTime 05/26/2024 167.64 cm 27 kg/m2 00251.93 g Corin Ross [facility] 05/26/2024 15:25:24 Date Recorded Body height Body mass index (BMI) Body weight Provider Name and Address Organization Details Last Updated DateTime 06/14/2024 167.64 cm 27 kg/m2 44439.93 g Leyda [place] - [facility] 06/14/2024 13:59:34 Date Recorded Body height Body mass index (BMI) Body weight Provider Name and Address Organization Details Last Updated DateTime 01/10/2024 167.64 cm 27 kg/m2 74419.93 g Bj Bergman [facility] 01/10/2024 14:46:35 Social History None recorded. Functional Status None recorded. Mental Status None recorded. Family History Nothing Reported. Medical History Condition Response Heart Problems Y Past Encounters Encounter ID Performer Location Encounter Start Date Encounter Closed Date Diagnosis/Indication Diagnosis SNOMED-CT Code Diagnosis ICD10 Code Diagnosis Note [id number] MILADIS NORWOOD MD [facility] [address] [address] 01/10/2024 14:30:35 01/10/2024 14:58:50 Bleeding from nose 366883220 R04.0 Long-term current use of antiplatelet drug 2299734633 17052 Z79.02 [id number] BRYON LOZOYA PA-C [facility] [address] [address] 05/26/2024 14:56:30 05/26/2024 15:40:29 Bleeding from nose 334820495 R04.0 [id number] LANDEN BUSTILLOS MD [facility] [address] [address] 06/14/2024 13:51:51 06/14/2024 14:28:09 Recurrent bleeding of nose 2046935260 102 R04.0 Health Concerns Section Related Observation LastModified by Organization Detai ls LastModified Time None Recorded Concern Status LastModified by Organization Details LastModified Time None Recorded Advance Directives Directive None Recorded Payers Insurance Date Sequence Insurance Name Policy Number Policy Cage Covered Member ID Cage Member ID Guarantor Name 06/14/2024 2 [place] [id number] [place] W Sowmya [id number] [place] Sowmya 06/14/2024 1 [place] [employer] [place] W Sowmya [id number] 1 Mario W Sowmya Notes Date Note Type Note Provider Name and Address Organization Details Recorded Time 01/10/2024 text/html Hx of epistaxis, septal deviation, and nasal crusting. No bleeding for months. Anxious about crusting as he is on Plavix again. No CP or SOB. Recent [place] and had another stent in October. on ASA and Plavix MILADIS MENDOZA MD [address] [place] [address],[address], [address], [place] - [facility] [place] 01/10/2024 14:56:55 05/26/2024 text/html 73-year-old male presents for rapid Rhino removal. He is on chronic blood thinner for heart issues. Has had bleeding in the past. Current rapid Rhino on the left side was placed on Wednesday. Has had no further bleeding. Typically uses saline, Ponaris, and occasionally K-Y jelly. KINJAL COLMENARES MD 100 [facility] 100, [place], [address], [place] - [facility] [place] 05/26/2024 16:53:29 06/14/2024 text/html 73yo who present [...] cavity. Takes plavix LANDEN BUSTILLOS MD 100 [facility] [place] [address], [place], [address], [place] - [facility] [place] 06/14/2024 17:02:17
[2024-08-04 12:37] LABS: Iron 165 mcg/dL (45-160); Percent Iron Saturation 56 % (15-50); Total Iron Binding Capacity 294 mcg/dL (228-428); Unsaturated Iron Binding 129 ug/dL
== END 2024-08-04 11:58 | disposition home or self-care (01) ==
LOC: HO.LNP 11:57
PROVIDERS: Visit Provider Internal Medicine
DX: D50.9 Iron deficiency anemia, unspecified (principal)
CPT/HCPCS: 83540; 85025

== ENCOUNTER 2024-09-20 09:10 | Outpatient (AMB) | payer MEDICARE, SELFPAY ==
--- NOTE | 2024-09-20 09:18 | MHC.OFFVIS ---
Vital Signs 09/20/24 09:19 Height 5 ft 6 in Weight 160 lb 14.999 oz BMI 26.0 BP 130/66 Blood Pressure Location Lt brachial Position Sitting Pulse 42 L Pulse Source Monitor Intake Visit Reasons: 3 mth f/up Allergies ezetimibe (From Zetia) Adverse Reaction (Verified 05/23/24 10:34) Elevated LFTS Medication List - Last Reconciled 09/20/24 by Kurt Wright MD alfuzosin ER 10 mg PO DAILY aspirin 81 mg PO DAILY atorvastatin 80 mg PO QPM cholecalciferol (vitamin D3) 50 mcg PO DAILY clopidogrel 75 mg PO DAILY metoprolol succinate ER 50 mg PO DAILY valsartan 40 mg PO BID HPI Comments Details: Mario returns for follow-up regarding coronary disease. To recall, in 2016, he was admitted for NSTEMI. Cardiac catheterization showed culprit vessel being in the venous graft to the diagonal branch and this was stented. In May 2019, another NSTEMI; underwent cardiac catheterization. Culprit lesion was vein graft to diagonal consistent with very late stent thrombosis, treated with drug-eluting stenting. Yet another STEMI 10/2023 leading to catheterization. Again, vein graft to diagonal was stented. The occlusion was distal to the prior stent. 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 Otherwise, he has had issues with abnormal LFTs and was briefly off cholesterol medications but then back on them again. No longer on Zetia. Recent nosebleed issues and it seems he went to ENT and got cauterized. That has now resolved. He states he feels short of breath at different times. Unclear reason. [facility] Medical History (Updated 09/20/24 @ 11:50 by Kurt Wright MD) History of IA (myocardial infarction) Personal history of nicotine dependence CAD (coronary artery disease) Abnormal LFTs Hyperlipidemia, unspecified Essential hypertension Subsequent ST elevation (STEMI) myocardial infarction Atherosclerotic cardiovascular disease Surgical History History of cardiac cath History of endoscopy History of colonoscopy History of AAA (abdominal aortic aneurysm) repair (~2018) History of tonsillectomy History of heart artery stent History of coronary artery bypass graft (~2002) Family History Father Myocardial infarction Stroke Mother No problems noted. Social History Alcohol intake: current Alcohol intake frequency: 0-2 drinks per day Alcohol type: beer Patient Tobacco Use Status: Former Tobacco user Years Smoked: (former smoker - onset 15yo, 1-1.5ppd x 46yrs, 50pyh - quit 09/14/2011) Substance Use Type: Marijuana Review of Systems Const Denies weakness ENT Denies dizziness Card Denies chest pain, Denies chest pain with activity, Denies syncope, Denies rapid heart rate, Denies pedal edema, Denies edema, Denies leg edema, Denies lightheadedness, Denies palpitations, Reports dyspnea, Reports dyspnea on exertion and Denies orthopnea Resp Denies cough, Reports dyspnea and Reports dyspnea on exertion GI Denies hematochezia and Denies change in stool character Musc Denies abnormal gait, Denies muscle cramps, Denies muscle weakness, Denies numbness, Denies radiating pain into limb and Denies tingling Neuro Denies abnormal gait, Denies dizziness, Denies syncope, Denies numbness, Denies tingling and Denies weakness Endo Denies palpitations Physical Exam Vital Signs: Last Vital Signs Pulse 42 L 09/20/24 09:19 BP 130/66 09/20/24 09:19 BMI result Body Mass Index 26.0 Const General: comfortable and no acute distress Orientation/consciousness: patient oriented x3 HEENT Other: Unremarkable Head: Yes normal to inspection Neck Neck: Yes normal visual inspection Chest Chest palpation & inspection: normal inspection of the chest Resp Auscultation: clear to auscultation bilaterally Cardio Palpation: normal PMI Heart sounds: S1 normal heart sound present, S2 normal heart sound present, no gallops, Murmur heart sound present systolic II/ and at the right sternal border and no rubs GI Palpation (GI): Soft to palpation Back/Spine/Pelvis Other: unremarkable Skin General skin exam: no rashes or lesions noted Neuro General: patient oriented x3 Extrem General: Yes normal to inspection Psych Mental Status: mental status grossly normal Office Procedures EKG Details: EKG with sinus bradycardia at 42/Min; T inversions in 1/aVL; [place]. [id number], Complete Assessment & Plan Assessment & Plan (1) Atherosclerotic cardiovascular disease: Code(s): I25.10 - Atherosclerotic heart disease of [place] coronary artery without angina pectoris Category: Medical Plan: Cardiac catheterization data reviewed 2023. Severe [place] disease. ALBARRAN to LAD is patent. Vein graft to PDA is occluded. Radial to OM2 is patent. In the vein graft to 1st diagonal, occlusion distal to prior stent. Thought to be very late stent thrombosis. Continue long-term aspirin/Plavix. Clinically, no angina. (2) Ischemic cardiomyopathy: Code(s): I25.5 - Ischemic cardiomyopathy Category: Medical Plan: Echocardiogram at [facility] with LVEF of 35-40% with wall motion abnormalities from underlying coronary disease. In the repeat study, LVEF is 45-50%. Wall motion abnormalities are noted. Clinically, no heart failure symptoms or signs. (3) Aortic valve sclerosis: Code(s): I35.8 - Other nonrheumatic aortic valve disorders Category: Medical Plan: Echocardiogram shows mild aortic stenosis. We can monitor. (4) Sinus bradycardia: Code(s): R00.1 - Bradycardia, unspecified Category: Medical Plan: Unclear if this is causing the shortness of breath. Can decrease beta-lyly dosing. (5) Essential hypertension: Code(s): I10 - Essential (primary) hypertension Category: Medical Plan: Stable. (6) Hyperlipidemia, unspecified: Code(s): E78.5 - Hyperlipidemia, unspecified Category: Medical Plan: Continue statins. With Zetia, he has had LFT issues. Overall, controlled lipids. LDL at [facility] 56 mg/dL. Triglycerides 31 mg/dL. (7) Frequent epistaxis: Code(s): R04.0 - Epistaxis Category: Medical Plan: Status post cauterization. Plan Discussion Notes I discussed with the patient the plan to reduce his metoprolol dosage to 25 mg to address his bradycardia and shortness of breath. We talked about the importance of monitoring his blood pressure and heart rate at home, particularly when at rest, to ensure they remain within a safe range. I advised that if his heart rate remains low and symptoms persist, we may need to further reduce the metoprolol dosage. The patient was informed to continue taking valsartan as prescribed and to engage in light physical activities, such as walking, to improve his cardiovascular health. Patient was informed and verbally consented to the use of an ambient scribe for clinic note documentation during this visit. Medications: New metoprolol succinate ER (Toprol XL) 25 mg PO DAILY 90 tabs 3RF Discontinued metoprolol succinate ER Discontinued Reason: Doctor's Order 50 mg PO DAILY 90 tabs 3RF Patient Instructions: - Reduce metoprolol dosage to 25 mg as prescribed. - Monitor blood pressure and heart rate at home, especially when resting. - Continue taking valsartan as prescribed. - Engage in light physical activities, such as walking, while being mindful of symptoms. Coding Level of Care Code Est Pt Level 4 (09315) Complex EM visit Add On G2211 Diagnoses Atherosclerotic cardiovascular disease I25.10 Ischemic cardiomyopathy I25.5 Aortic valve sclerosis I35.8 Sinus bradycardia R00.1 Essential hypertension I10 Hyperlipidemia, unspecified E78.5 Frequent epistaxis R04.0 CPT Codes EKG - CPT: 64406-Gbiqzufkkbiljijbx, Complete ([id number])
[2024-09-20 09:19] VITALS: BP 130/66; PULSE 42; BMI 26.0
--- OUTSIDE RECORDS SUMMARY | 2024-09-20 09:40 | XMS_ITS | Data Portability ---
Author Organization [place] - [facility], Allergy Address [address] [address] Care Team Providers Care Financial Retirement Plan Specialist Name Role Phone ROSENDO PATEL Primary [...] Last Modified Time Details Appointments Establish ed 15 2024 10:30A M BRYON LOZOYA PA-C Not available Not available Not available Lab None recorded. Referral None recorded. Procedures None recorded. Surgeries None recorded. Imaging None recorded. Medication Orders None recorded. Patient TargetsNo targets recorded. Patient Instructions Encounter Date Encounter Id Patient Instructions Last Modified By Organization Details Last Modified Time 01/10/2024 [id number] nosebleed information [email or web address] Not available 01/10/2024 14:56:26 Reason for Referral None Reported. Problems Name Problem SNOMED Code Status Onset Date Resolution Date Notes Provider Name and Address Organization Details Recorded Time Bleeding from nose 929532856 Active 2022 Epistaxis; Note: Date Diagnosed: 09/21/2022 10:54 AM (R04.0) Not Available [facility] 4 02:57:21 Sudden idiopathi c hearing loss 345580415 Active 2023 Sudden idiopathic hearing loss, right ear; Note: Date Diagnosed: 03/31/2023 2:38 PM (H91.21) Not Available [facility] 4 02:57:20 Sensorine ural hearing loss of bilateral ears 994788122 Active 2023 Sensorineu ral hearing loss, bilateral; Note: Date Diagnosed: 03/31/2023 2:04 PM (H90.3) Not Available [facility] 4 02:57:22 Recurrent bleeding of nose Active 2024 LANDEN BUSTILLOS MD [address] [facility],[address] [address], [place], [address] , [facility] - [facility] 17:01:47 Problem Notes None recorded. Procedures Surgical History Date Name Laterality Status Provider Name and Address Organization Details Recorded Time NasalEndoscopy _DP completed LANDEN BUSTILLOS MD [address] [place] [address],[address], [phone], [facility] 06/14/2024 17:00:46 repair of aneurysm of abdominal aorta completed MILADIS MENDOZA MD [address] [place] [address],[address], [address], [facility] - [facility] 01/10/2024 14:51:24 coronary artery bypass graft completed MILADIS MENDOZA MD [address] [place] [address],[address], [address], [facility] 01/10/2024 14:51:33 placement of stent in cardiac conduit completed MILADIS MENDOZA MD [address] [place] [address],[address], [address], [facility] 01/10/2024 14:51:41 Imaging Results None recorded. [...] mg capsule 06/14 completed Medicati on ID: [id number] B rand Name: tamsulos in Send Method: E-Prescr ibed Sub s Allowed: subs OK Medic ationGen ericName : tamsulos in Not Available Not Available Not Available amlodipin e 10 mg tablet 06/14 completed Medicati on ID: [id number] B rand Name: amlodipi ne Send Method: [...] Updated DateTime 05/26/2024 167.64 cm 27 kg/m2 76585.93 g Corin Ross [place] - [facility] 05/26/2024 15:25:24 Date Recorded Body height Body mass index (BMI) Body weight Provider Name and Address Organization Details Last Updated DateTime 06/14/2024 167.64 cm 27 kg/m2 45484.93 g Leyda Whittington [place] - [facility] 06/14/2024 13:59:34 Date Recorded Body height Body mass index (BMI) Body weight Provider Name and Address Organization Details Last Updated DateTime 01/10/2024 167.64 cm 27 kg/m2 79865.93 g Bj Grover [facility] 01/10/2024 14:46:35 Social History None recorded. Functional Status None recorded. Mental Status None recorded. Family History Nothing Reported. Medical History Condition Response Heart Problems Y Past Encounters Encounter ID Performer Location Encounter Start Date Encounter Closed Date Diagnosis/Indication Diagnosis SNOMED-CT Code Diagnosis ICD10 Code Diagnosis Note [id number] MILADIS NORWOOD MD [facility] [address] [address] 01/10/2024 14:30:35 01/10/2024 14:58:50 Bleeding from nose 207006839 R04.0 Long-term current use of antiplatelet drug 6268191132 68162 Z79.02 [id number] BRYON LOZOYA PA-C [facility] [address] [address] 05/26/2024 14:56:30 05/26/2024 15:40:29 Bleeding from nose 889347631 R04.0 [id number] LANDEN BUSTILLOS MD [facility] [address] [address] 06/14/2024 13:51:51 06/14/2024 14:28:09 Recurrent bleeding of nose 7376293724 102 R04.0 Health Concerns Section Related Observation LastModified by Organization Detai ls LastModified Time None Recorded Concern Status LastModified by Organization Details LastModified Time None Recorded Advance Directives Directive None Recorded Payers Insurance Date Sequence Insurance Name Policy Number Policy Cage Covered Member ID Cage Member ID Guarantor Name 06/14/2024 2 [place] [id number] Spindale W Sowmya Jr [id number] Mario W Sowmya 09/18/2024 1 [place] [employer] Mario W Sowmya [id number] Spindale W Sowmya Notes Date Note Type Note Provider Name and Address Organization Details Recorded Time 01/10/2024 text/html Hx of epistaxis, septal deviation, and nasal crusting. No bleeding for months. Anxious about crusting as he is on Plavix again. No CP or SOB. Recent NC and had another stent in October. on ASA and Plavix MILADIS MENDOZA MD [address] [facility] [address], [place], [address], [place] [facility] 01/10/2024 14:56:55 05/26/2024 text/html 73-year-old male presents for rapid Rhino removal. He is on chronic blood thinner for heart issues. Has had bleeding in the past. Current rapid Rhino on the left side was placed on Wednesday. Has had no further bleeding. Typically uses saline, Ponaris, and occasionally K-Y jelly. KINJAL COLMENARES MD 100 [facility], [place], [address], [facility] - [facility] 05/26/2024 16:53:29 06/14/2024 text/html 73yo who present [...] cavity. Takes plavix LANDEN BUSTILLOS MD [address] [facility] [address],[facility], [place], [address], [facility] - [facility] 06/14/2024 17:02:17
== END 2024-09-20 09:42 | disposition home or self-care (01) ==
LOC: HO.HCS 09:11
PROVIDERS: PCP Internal Medicine; Visit Provider Internal Medicine
DX: I11.9 Hypertensive heart disease without heart failure (principal); I25.10 Atherosclerotic heart disease of native coronary artery without angina pectoris; I25.5 Ischemic cardiomyopathy; I35.8 Other nonrheumatic aortic valve disorders; R00.1 Bradycardia, unspecified; E78.5 Hyperlipidemia, unspecified; R04.0 Epistaxis
CPT/HCPCS: 93010; 99214; G2211

== ENCOUNTER → 2024-09-20 09:10 | Outpatient (BNVA) | payer MEDICARE, SELFPAY | PROVIDERS: PCP Internal Medicine; Visit Provider Internal Medicine | DX: I25.10 Atherosclerotic heart disease of native coronary artery without angina pectoris (principal); I25.5 Ischemic cardiomyopathy; I35.8 Other nonrheumatic aortic valve disorders; I10 Essential (primary) hypertension; R00.1 Bradycardia, unspecified; R04.0 Epistaxis; E78.5 Hyperlipidemia, unspecified; R94.31 Abnormal electrocardiogram [ECG] [EKG]; I25.2 Old myocardial infarction | CPT/HCPCS: 93005; 99212 ==

== ENCOUNTER 2024-10-24 13:00 | Outpatient (REF) | payer MEDICARE, SELFPAY ==
--- NOTE | ~2024-10-24 | XR_ITS ---
EXAMINATION: XR HIP, RIGHT CLINICAL INFORMATION: PAIN COMPARISON: None available. TECHNIQUE: AP and oblique views of the right hip. FINDINGS: No acute cortical disruption or malalignment. Mild sclerosis along the articular surface of the acetabulum and the femoral head and the inferior aspect with subchondral cyst formation. Asymmetric joint space narrowing. 1 cm calcific matrix bone lesion in the center of the proximal diaphysis just below the intertrochanteric region. Stent/graft in the aorta and iliac arteries. Vascular complications. Degenerative changes in the symphysis pubis. XR/XR hip RT min 2V IMPRESSION: Osteoarthritis/osteoarthrosis, mild to moderate, right hip. 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 Electronically signed by: Jeremy Templeton MD 10/24/2024 01:26 PM EDT
== END 2024-10-24 13:01 | disposition home or self-care (01) ==
LOC: HO.XRAY 13:00
PROVIDERS: PCP Internal Medicine; Visit Provider Internal Medicine
DX: M25.551 Pain in right hip (principal)
CPT/HCPCS: 73502

== ENCOUNTER → 2024-10-24 13:10 | Outpatient (BNV) | payer MEDICARE, SELFPAY | PROVIDERS: PCP Internal Medicine; Visit Provider Radiology Diagnostic Radiology | DX: M16.11 Unilateral primary osteoarthritis, right hip (principal) | CPT/HCPCS: 73502 ==

== ENCOUNTER 2024-10-31 11:32 | Outpatient (REF) | payer MEDICARE, SELFPAY ==
[2024-10-31 11:38] LABS: MANUAL DIFF FLAG NO
[2024-10-31 11:42] LABS: Appearance Urine Clear; Glucose Urine UA Negative (Negative); PH 8.0 (5.0-9.0); Specific Gravity - Urine 1.010 (1.005-1.025)
[2024-10-31 11:45] LABS: Hematocrit 41.4 % (42.0-52.0); Hemoglobin 13.9 g/dl (14.0-18.0); Imm Gran Abs Auto 0.02 X10*3/uL (0.00-0.03); Imm Gran Pct Auto 0.4 % (0.0-0.4); Lymphocytes Absolute Auto 1.7 X10*3/uL (1.2-4.9); Mean Corpuscular HGB Conc 33.6 g/dl (31.0-36.0); Mean Corpuscular Hemoglobin 30.9 pg (27.0-33.0); Mean Corpuscular Volume 92.0 fL (80.0-98.0); NRBC Abs Auto 0.000 X10*3/uL (0.0-0.012); NRBC Pct Auto 0.0 /100WBC (0.0-0.2); Platelet Count 157 X10*3/uL (160-400); Red Blood Count 4.50 X10*6/uL (4.60-5.80); White Blood Count 5.5 X10*3/uL (4.8-10.8)
[2024-10-31 12:17] LABS: PSA,Total (Free>4and<10) 5.18 ng/mL (0.00-4.00)
[2024-10-31 12:21] LABS: Alanine Aminotransferase 27 U/L (0-40); Albumin Level 3.8 g/dL (3.5-5.0); Alkaline Phosphatase 48 U/L (39-117); Anion Gap 10 (12-20); Aspartate Amino Transferase 32 U/L (5-37); Blood Urea Nitrogen 12 mg/dL (9-16); Calcium 8.7 mg/dL (8.4-10.2); Carbon Dioxide 29 mmol/L (22-29); Chloride 107 mmol/L (96-108); Cholesterol 128 mg/dL (<200); Estimated Glomerular Filt Rate > 60; HDL Cholesterol 48 mg/dL (>40); Iron 109 mcg/dL (45-160); Percent Iron Saturation 40 % (15-50); Potassium 4.2 mmol/L (3.3-5.1); Sodium 142 mmol/L (135-145); Total Iron Binding Capacity 274 mcg/dL (228-428); Total Protein 6.1 g/dL (6.5-8.0); Triglycerides 46 mg/dL (<150); Unsaturated Iron Binding 165 ug/dL
[2024-11-01 13:49] LABS: Free Prostate Spec Ag 1.1 ng/mL; Percent Free Prostate Spec Ag 25 % (calc) (>25)
== END 2024-10-31 11:33 | disposition home or self-care (01) ==
LOC: HO.LNP 11:32
PROVIDERS: Visit Provider Internal Medicine
DX: Z12.5 Encounter for screening for malignant neoplasm of prostate (principal); E78.00 Pure hypercholesterolemia, unspecified; I10 Essential (primary) hypertension; N40.0 Benign prostatic hyperplasia without lower urinary tract symptoms; D50.9 Iron deficiency anemia, unspecified
CPT/HCPCS: 80053; 80061; 81001; 83540; 84153; 84154; 85025

== ENCOUNTER 2024-12-27 11:48 | Outpatient (REF) | payer MEDICARE, SELFPAY ==
[2024-12-27 13:33] LABS: Leukocytes Stool Qualitative NEGATIVE (NEGATIVE)
--- OUTSIDE RECORDS SUMMARY | 2024-12-27 15:11 | XMS_ITS | Data Portability ---
Author Organization [place] - [facility], Allergy Address [address] [address] Care Team Providers Care Stem Assembler Name Role Phone ROSENDO PATEL Primary Care Provider Assessment Encounter Date Assessment Date Assessment LastModified by Organization Details LastModified Time 06/14/2024 06/14/2024 73yo who present s today [...] for treatment [email or web address] Not available 06/14/2024 17:02:01 09/26/2024 09/26/2024 74-year-old male presents for evaluation of itching of the right ear. On examination the canal has an overall wet appearance. A culture was taken and will be followed. The left ear has cerumen impaction which was removed. Likely there is some otorrhea that was cleaned out by Q-tip. Itching is suggestive of fungal infection so clotrimazole will be called to pharmacy. Will augment drop therapy if culture shows any bacterial growth. Follow-up in 3 to 4 weeks for reevaluation. All questions were answered. Not available 09/26/2024 10:55:47 10/11/2024 10/11/2024 74-year-old male presents for reevaluation of right otitis externa. Exam is consistent with mixed infection. Recommended application of Odo max which was performed today. He was instructed in dry ear precaution. Follow-up in 3 to 4 weeks for reevaluation. All questions were answered. [email or web address] Not available 10/11/2024 10:18:17 11/08/2024 11/08/2024 74-year-old male presents for reevaluation. On examination there is no further otorrhea or abnormal debris within the right EAC. TM normal to inspection. Follow-up in 6 months for cerumen removal. [email or web address] Not available 11/08/2024 13:18:16 12/08/2024 12/08/2024 Ed Maira Deng is a 74-year-old male with recurrent nosebleeds and nasal dryness, likely exacerbated by environmental factors and medication side effects. The patient was advised to continue using saline solution and nasal rinses daily to maintain nasal hydration. Ponaris eucalyptus oil was recommended for application to the hair follicles using a Q-tip, avoiding direct application inside the nostrils. The use of KY jelly was discussed, but the patient should monitor for crust buildup and adjust usage accordingly. A humidifier was recommended to improve indoor air moisture levels, and the patient was encouraged to monitor humidity using a hygrometer. The patient was educated about the potential side effects of alfuzosin and other blood pressure medications, which may contribute to nasal congestion and dryness. He was reassured that no foreign bodies or significant crusting were observed during the examination, and no cauterization was necessary at this time. FOLLOW-UP: The patient should return for further evaluation if symptoms worsen or if bleeding becomes severe. [email or web address] Not available 12/08/2024 11:53:23 Plan of Treatment Reminders Order Date Submit Date Provider Last Modified By Organization Details Last Modified Time Details Appointments Establish ed 15 2025 10:30A M BRYON LOZOYA PA-C Not available Not available Not available Lab culture, aerobic + anaerobic 2024 BRIAN [facility] (Centralized Electronic Ordering - All Locations), Patient Can Go To The Location Of Their Choice, [id number] 09/27/2024 11:17:01 fungus, culture, unspecifi ed specimen 2024 BRIAN [facility] (Centralized Electronic Ordering - All Locations), Patient Can Go To The Location Of Their Choice, [id number] 09/27/2024 11:17:02 Referral None recorded. Procedures None recorded. Surgeries None recorded. Imaging None recorded. Medication Orders [facility]rimaz ole 1 % [id number] [address], [place], [id number], 12/08/2024 11:24:52 Patient TargetsNo targets recorded. Patient Instructions Encounter Date Encounter Id Patient Instructions Last Modified By Organization Details Last Modified Time 12/08/2024 [id number] nosebleed information [email or web address] Not available 12/08/2024 11:52:30 - Use saline solution and nasal rinses daily. - Apply Ponaris eucalyptus oil to hair follicles using a Q-tip, avoiding direct application inside the nostrils. - Monitor humidity levels at home using a hygrometer and use a humidifier as needed. - Adjust KY jelly usage if crust buildup occurs. - Return for evaluation if symptoms worsen or bleeding becomes severe. lamar Not available 12/08/2024 11:51:34 Please note: Parts of this encounter note have been generated by AI based on audio conversation. Patient consent was required prior to utilizing this technology. Content review was required prior to finalizing the note. [email or web address] Not available 12/08/2024 11:51:34 Reason for Referral None Reported. Results Created Date Observation Date Name Description Value Unit Range Abnormal Flag Note LastModifiedBy Organization Detail LastModifiedTime 09/27/1909/27/2024 ANAER OBIC AND AEROB IC CULTU RE anaerobic culture COMMEN T Test not perfo rmed. The requi red speci men for the test order ed was not recei dinorah. DRY SWAB NOT ACCEP TABLE FOR CULTU RE Not Available [facility] ([facility]) [address] [place], [address], 09/27/2024 11:17:01 09/27/19 25 09/27/2024 ANAER OBIC AND AEROB IC CULTU RE aerobic culture COMMEN T Test not perfo rmed. The requi red speci men for the test order ed was not recei dinorah. DRY SWAB NOT ACCEP TABLE FOR CULTU RE Not Available [facility] ([facility]) [address] [place], [address], 09/27/2024 11:17:01 09/27/19 25 09/27/2024 FUNGU S CULTU RE WITH STAIN fungus stain COMMEN T Test not perfo rmed. The requi red speci men for the test order ed was not recei dinorah. DRY SWAB NOT ACCEP TABLE FOR CULTU RE Not Available [facility] ([facility]) [address] [place], [address], 09/27/2024 11:17:02 09/27/19 25 09/27/2024 FUNGU S CULTU RE WITH STAIN fungus (mycology) culture COMMEN T Test not perfo rmed. The requi red speci men for the test order ed was not recei dinorah. DRY SWAB NOT ACCEP TABLE FOR CULTU RE Not Available [facility] ([facility]) [address] [place], [address], 09/27/2024 11:17:02 07/29/20 25 09/27/[address] PROBL EM request problem COMMEN T Test not perfo rmed. The requi red speci men for the test order ed was not recei dinorah. TEST: 28251 3 Anaer obic and Aerob ic Cultu re 18201 3 Fungu s Cultu re With Stain DRY SWAB NOT ACCEP TABLE FOR CULTU RE Not Available [facility] ([facility]) [address] [facility], [place], [address], 09/27/2024 11:17:03 Result Notes None recorded. Problems Name Problem SNOMED Code Status Onset Date Resolution Date Notes Provider Name and Address Organization Details Recorded Time Bleeding from nose 866106878 Active 2022 Epistaxis ; Note: Date Diagnosed : 09/21/2022 10:54 AM (R04.0) MILADIS NORWOOD MD [address] [facility],[place] [address], [place], [address] , [place] - [facility] 5 11:49:39 Sudden idiopathi c hearing loss 995006663 Active 2023 Sudden idiopathi c hearing loss, right ear; Note: Date Diagnosed : 03/31/2023 2:38 PM (H91.21) Not Available [facility] 4 02:57:20 Sensorine ural hearing loss of bilateral ears 363092888 Active 2023 Sensorine ural hearing loss, bilateral ; Note: Date Diagnosed : 03/31/2023 2:04 PM (H90.3) Not Available [facility] 4 02:57:22 Recurrent bleeding of nose Active 2024 LANDEN BUSTILLOS MD 100 [facility], [place], [address] , [place] - [facility] 5 17:01:47 Otomycosi s 43678115 Active 2024 BRYON LOZOYA PA-C [facility] [place],[address], [place], [address] , [place] - [facility] 5 10:55:58 Impacted cerumen in left ear 19258036158 32537 Active 2024 BRYON LOZOYA PA-C [address] [place] [address],[place] [address], [place], [address] , [facility] 10:56:48 Bacterial otitis externa 49687914969 9107 Active 2024 BRYON LOZOYA PA-C [address] [place] [address],[place] [address], [place], [address] , [facility] - [facility] 10:18:36 Deviated nasal septum 620593155 Active 2024 MILADIS NORWOOD MD [address] [place] [address],[place] [address], [place], [address] , [facility] - [facility] 11:49:55 Essential hypertens ion 00958816 Active 2024 MILADIS NORWOOD MD [address] [place] [address],[place] [address], [place], [address] , [facility] - [facility] 11:53:32 Problem Notes None recorded. Procedures Surgical History Date Name Laterality Status Provider Name and Address Organization Details Recorded Time JMSNasal/Sinus Endoscopy completed MILADIS MENDOZA MD [address] [place] [address],[address], [address], [facility] - [facility] 12/08/2024 11:53:08 5 Cerumen removal without microscope left completed BRYON LOZOYA PA-C [address] [place] [address],[address], [address], [facility] - [facility] 09/26/2024 10:54:54 5 NasalEndoscopy_ DP completed LANDEN BUSTILLOS MD [address] [place] [address],[address], [address], [facility] - [facility] 06/14/2024 17:00:46 repair of aneurysm of abdominal aorta completed MILADIS MENDOZA MD [address] [place] [address],[address], [address], [place] - [facility] 01/10/2024 14:51:24 coronary artery bypass graft completed MILADIS MENDOZA MD 100 [facility],[address], [address], [place] - [facility] 01/10/2024 14:51:33 placement of stent in cardiac conduit completed MILADIS MENDOZA MD [address] [facility],[address], [address], [place] [facility] release 24 hr TAKE 1 TABLET DAILY 12/08 completed Not Available Not Available Not Available prednison e 20 mg tablet TAKE 3 TABLETS BY MOUTH EVERY DAY FOR 10 DAYS 01/09 completed Not Available Not Available Not Available clopidogr el 75 mg tablet TAKE 1 TABLET DAILY active Not Available Not Available No t Available tamsulosi n 0.4 mg capsule 06/14 completed Medicati on ID: [id number] rand Name: tamsulos in Send Method: E-Prescr ibed Sub s Allowed: subs OK Medic ationGen ericName : tamsulos in Not Available Not Available Not Available amlodipin e 10 mg tablet 06/14 completed Medicati on ID: [id number] B rand Name: amlodipi ne Send Method: E-Prescr ibed Sub s Allowed: subs OK Medic ationGen ericName : amlodipi ne Not Available Not Available Not Available cephalexi n 500 mg capsule TAKE 1 CAPSULE BY MOUTH FOUR TIMES DAILY 06/14 completed Not Available Not Available Not Available clotrimaz ole 1 % topical solution APPLY 4 DROPS TOPICALL Y TO THE AFFECTED AREA TWICE DAILY FOR 3 WEEKS 12/08 completed Not Available Not Available Not Available [...] tablet TAKE 1 TABLET BY MOUTH TWICE A DAY active Not Available Not Available No t Available alfuzosin ER 10 mg tablet,ex tended release 24 hr TAKE 1 TABLET AT BEDTIME (CANCEL AND STOP TAMSULOS IN) active Not Available Not Available No t Available Vitals Date Recorded Body height Body mass index (BMI) Body weight Provider Name and Address Organization Details Last Updated DateTime 06/14/2024 167.64 cm 27 kg/m2 80226.93 g Leyda Whittington [place] - [facility] 06/14/2024 13:59:34 Date Recorded Body height Body mass index (BMI) Body weight Provider Name and Address Organization Details Last Updated DateTime 09/26/2024 167.64 cm 26.5 kg/m2 77334.15 g Taylor Modi [place] - [facility] 09/26/2024 10:46:08 Date Recorded Body height Body mass index (BMI) Body weight Provider Name and Address Organization Details Last Updated DateTime 10/11/2024 167.64 cm 26.5 kg/m2 16494.15 g Corin oRss [place] - [facility] 10/11/2024 08:59:21 Date Recorded Body height Body mass index (BMI) Body weight Provider Name and Address Organization Details Last Updated DateTime 11/08/2024 167.64 cm 26.5 kg/m2 47357.15 g Corin Ross [place] - [facility] 11/08/2024 11:26:36 Date Recorded Body height Body mass index (BMI) Body weight Systolic And Diastolic Provider Name and Address Organization Details Last Updated DateTime 12/08/2024 167.64 cm 26.5 kg/m2 27685.15 g 130/78 mm[Hg] Leyda Whittington [place] - [facility] 12/08/2024 11:28:36 Social History None recorded. Functional Status None recorded. Mental Status None recorded. Family History Nothing Reported. Medical History Condition Response Heart Problems Y Past Encounters Encounter ID Performer Location Encounter Start Date Encounter Closed Date Diagnosis/Indication Diagnosis SNOMED-CT Code Diagnosis ICD10 Code Diagnosis IMO Codes Diagnosis Note [id number] MILADIS NORWOOD MD [facility] [address] [address] 01/10/2024 14:30:35 01/10/2024 14:58:50 Bleeding from nose 977842158 R04.0 Long-term current use of antiplatelet drug 1509742260 91459 Z79.02 [id number] BRYON LOZOYA PA-C [facility] [address] [address] 05/26/2024 14:56:30 05/26/2024 15:40:29 Bleeding from nose 254992057 R04.0 [id number] LANDEN BUSTILLOS MD [facility] [address] [address] 06/14/2024 13:51:51 06/14/2024 14:28:09 Recurrent bleeding of nose 3686881604 102 R04.0 [id number] BRYON LOZOYA PA-C [facility] [address] [address] 09/26/2024 10:17:12 09/26/2024 10:53:11 Otomycosis 50471682 B36.9 H62.40 23580 Impacted c erumen in left ear 7700439235 870654 H61.22 7841561 [id number] BRYON LOZOYA PA-C [facility] [address] [address] 10/11/2024 08:45:48 10/11/2024 09:29:56 Otomycosis 38413302 B36.9 H62.40 22298 Bacterial otitis externa 4138256992 16127 H60.399 [id number] BRYON LOZOYA PA-C [facility] [address] [address] 11/08/2024 11:21:17 11/08/2024 11:35:09 Bacterial otitis externa 7708107878 86032 H60.399 [id number] Otomycosis 92854757 B36. 9 H62.40 45301 [id number] MILADIS NORWOOD MD [facility] [address] [place] [address] 12/08/2024 11:20:58 12/08/2024 11:53:36 Bleeding from nose 656606950 R04.0 Long-term current use of antiplatelet drug 3021658880 54461 Z79.02 Deviated nasal septum 12 6017893 J34.2 881311 Essential hypertension 10850562 I10 55825 Health Concerns Section Related Observation LastModified by Organization Detai ls LastModified Time None Recorded Concern Status LastModified by Organization Details LastModified Time None Recorded Advance Directives Directive None Recorded Payers Insurance Date Sequence Insurance Name Policy Number Policy Cage Covered Member ID Cage Member ID Guarantor Name 12/08/2024 2 [place] [id number] Mario W Sowmya [id number] [place] [address] [place] 12/08/2024 1 [place] [employer] [place] [id number] 1 Mario W Sowmya Notes Date Note Type Note Provider Name and Address Organization Details Recorded Time 06/14/2024 text/html ROS as noted in the HPI 73yo who presents today for follow-up for epistaxis.Previousl y seen by Dr. Mendoza - given conservative measures including humidification. This has worke for about 1 year.3 weeks ago he had a severe bleed on the left - rhinorocket placed in the left nasal cavity.He continues to have bloody drainage from the left nasal cavity. Takes plavix LANDEN BUSTILLOS MD [address] [place] [address], [address], [facility] - [facility] 06/14/2024 17:02:17 09/26/2024 text/html ROS as noted in the HPI 74-year-old male presents for evaluation of itchy right ear. The ear has been itchy for several weeks and he admits to using his finger and Q-tips to itch. No drainage or pain. EDWARD RAFAEL, MD [address] [facility],[place] [address], [place], [address], [facility] 09/27/2024 17:01:19 10/11/2024 text/html ROS as noted in the [facility] 74-year-old male presents for reevaluation of right otitis externa. Continues to have itching and sensation of swelling of the ear. He has been using clotrimazole and does not feel it has helped much. Culture was taken at last visit but unfortunately testing was not performed at the lab. MILADIS MENDOZA MD [address] [facility],[place] [address], [place], [address], [facility] 10/11/2024 10:20:01 11/08/2024 text/html ROS as noted in the [facility] 74-year-old male presents for reevaluation of otitis externa. Previously treated for mixed infection with Otomax. He feels completely improved without any fullness or itching. WOODY FINLEY MD [address] [facility],[place] [address], [place], [address], [facility] 11/08/2024 17:38:35 12/08/2024 text/html Ed Maira Deng is a 74-year-old male who presents for evaluation of recurrent nosebleeds. The patient reports that he typically experiences nosebleeds later in the year, but this year they began earlier than usual. He had two episodes recently, one on Wednesday and another on Wednesday, which he managed without requiring emergency care. He describes the bleeding as not severe but accompanied by clot formation. The patient has been using nasal rinses and saline sprays daily and has avoided KY jelly due to crust buildup. He is currently taking Plavix and aspirin. He also reports a sensation of something stuck in his right nostril, which he attributes to dryness. The patient has a history of ear-related issues, which were addressed during a visit in October, and he states that his ears are currently doing fine. He is also on alfuzosin for prostate-related issues and acknowledges that blood pressure and prostate medications may contribute to nasal dryness. MILADIS MENDOZA MD [address] [facility] [place],[facility], [place], [address], [facility] - [facility] 12/08/2024 11:53:55
[2024-12-27 15:12] LABS: E. coli EAEC Not Detected (Not Detect.); E. coli EPEC Not Detected (Not Detect.); E. coli ETEC Not Detected (Not Detect.); E. coli STEC Not Detected (Not Detect.); Shigella sp./EIEC Not Detected (Not Detect.)
[2024-12-28 16:06] LABS: CDiff Gene PCR NEGATIVE (Negative)
== END 2024-12-27 11:49 | disposition home or self-care (01) ==
LOC: HO.LNP 11:48
PROVIDERS: Visit Provider Internal Medicine
DX: R19.7 Diarrhea, unspecified (principal)
CPT/HCPCS: 87493; 87507; 89055

== ENCOUNTER 2025-01-11 10:32 | Outpatient (REF) | payer MEDICARE, SELFPAY ==
[2025-01-11 10:35] LABS: MANUAL DIFF FLAG NO
[2025-01-11 11:27] LABS: Hematocrit 41.4 % (42.0-52.0); Hemoglobin 13.9 g/dl (14.0-18.0); Imm Gran Abs Auto 0.02 X10*3/uL (0.00-0.03); Imm Gran Pct Auto 0.3 % (0.0-0.4); Lymphocytes Absolute Auto 1.7 X10*3/uL (1.2-4.9); Mean Corpuscular HGB Conc 33.6 g/dl (31.0-36.0); Mean Corpuscular Hemoglobin 32.9 pg (27.0-33.0); Mean Corpuscular Volume 98.1 fL (80.0-98.0); NRBC Abs Auto 0.000 X10*3/uL (0.0-0.012); NRBC Pct Auto 0.0 /100WBC (0.0-0.2); Platelet Count 196 X10*3/uL (160-400); Red Blood Count 4.22 X10*6/uL (4.60-5.80); White Blood Count 6.0 X10*3/uL (4.8-10.8)
[2025-01-11 11:48] LABS: Iron 77 mcg/dL (45-160); Percent Iron Saturation 29 % (15-50); Total Iron Binding Capacity 263 mcg/dL (228-428); Unsaturated Iron Binding 186 ug/dL
--- OUTSIDE RECORDS SUMMARY | 2025-01-11 12:55 | XMS_ITS | Continuity of Care Document ---
Author Organization [place] - [facility], [facility] Address [address] [place] [address] Care Team Providers Care Documentum Consultant Name Role Phone ROSENDO PATEL Primary Care Provider [phone] Assessment Encounter Date Assessment Date Assessment LastModified by Organization Details LastModified Time 10/11/2024 10/11/2024 74-year-old male presents for reevaluation of right otitis externa. Exam is consistent with mixed infection. Recommended application of Odo max which was performed today. He was instructed in dry ear precaution. Follow-up in 3 to 4 weeks for reevaluation. All questions were answered. [email or web address] Not available 10/11/2024 10:18:17 Plan of Treatment Reminders Order Date Submit Date Provider Last Modified By Organization Details Last Modified Time Details Appointments Establish ed 15 2025 10:30A M BRYON LOZOYA PA-C Not available Not available Not available Lab None recorded. Referral None recorded. Procedures None recorded. Surgeries None recorded. Imaging None recorded. Medication Orders None recorded. Patient TargetsNo targets recorded. Patient InstructionsNo instructions recorded. Reason for Referral None Reported. Results Created Date Observation Date Name Description Value Unit Range Abnormal Flag Note LastModifiedBy Organization Detail LastModifiedTime 09/27/1909/27/2024 ANAER OBIC AND AEROB IC CULTU RE anaerobic culture COMMEN T Test not perfo rmed. The requi red speci men for the test order ed was not recei dinorah. DRY SWAB NOT ACCEP TABLE FOR CULTU RE Not Available [facility] ([facility]) [address] [facility], [place], [address], 09/27/2024 11:17:01 09/27/19 25 09/27/2024 ANAER OBIC AND AEROB IC CULTU RE aerobic culture COMMEN T Test not perfo rmed. The requi red speci men for the test order ed was not recei dinorah. DRY SWAB NOT ACCEP TABLE FOR CULTU RE Not Available [facility] ([facility]) [address] [place], [address], 09/27/2024 11:17:01 09/27/19 25 09/27/2024 FUNGU S CULTU RE WITH STAIN fungus stain COMMEN T Test not perfo rmed. The requi red speci men for the test order ed was not recei dinorah. DRY SWAB NOT ACCEP TABLE FOR CULTU RE Not Available [facility] ([facility]) [address] [place], [address], 09/27/2024 11:17:02 09/27/19 25 09/27/2024 FUNGU S CULTU RE WITH STAIN fungus (mycology) culture COMMEN T Test not perfo rmed. The requi red speci men for the test order ed was not recei dinorah. DRY SWAB NOT ACCEP TABLE FOR CULTU RE Not Available [facility] ([facility]) [address] [place], [address], 09/27/2024 11:17:02 09/27/19 25 09/27/[address] PROBL EM request problem COMMEN T Test not perfo rmed. The requi red speci men for the test order ed was not recei dinorah. TEST: [id number] 3 Anaer obic and Aerob ic Cultu re 78945 3 Fungu s Cultu re With Stain DRY SWAB NOT ACCEP TABLE FOR CULTU RE Not Available [facility] ([facility]) [address] [place], [address], 09/27/2024 11:17:03 Result Notes None recorded. 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 Active 2023 Sudden idiopathi c hearing loss, right ear; Note: Date Diagnosed : 03/31/2023 2:38 PM (H91.21) Not Available [facility] 4 02:57:20 Sensorine ural hearing loss of bilateral ears 737018450 Active 2023 Sensorine ural hearing loss, bilateral ; Note: Date Diagnosed : 03/31/2023 2:04 PM (H90.3) Not Available [facility] 4 02:57:22 Recurrent bleeding of nose Active 2024 LANDEN BUSTILLOS MD [address] [facility],[place] [address], [place], [address] , [facility] - [facility] [place] 5 17:01:47 Otomycosi s 18719650 Active 2024 BRYON LOZOYA PA-C [address] [place] [address],[place] [address], [place], [address] , [facility] - [facility] [place] 5 10:55:58 Impacted cerumen in left ear 02097457313 21585 Active 2024 BRYON LOZOYA PA-C [address] [place] [address],[place] [address], [place], [address] , [facility] - [facility] [place] 5 10:56:48 Bacterial otitis externa 72897932905 9107 Active 2024 BRYON LOZOYA PA-C [address] [place] [address],[place] [address], [place], [address] , [facility] - [facility] [place] 5 10:18:36 Deviated nasal septum 667042858 Active 2024 MILADIS NORWOOD MD [address] [facility],[place] [address], [place], [address] , [facility] - [facility] [place] 11:49:55 Essential hypertens ion 70431723 Active 2024 MILADIS NORWOOD MD [address] [facility] [place],[facility], [place], [address] , [place] - [facility] [place] 11:53:32 Problem Notes None recorded. Procedures Surgical History Date Name Laterality Status Provider Name and Address Organization Details Recorded Time JMSNasal/Sinus Endoscopy completed MILADIS MENDOZA MD [address] [facility] [place],[facility]ICE [facility], [place], [address], [place] - [facility] [place] 12/08/2024 11:53:08 Cerumen removal without microscope left completed BRYON LOZOYA PA-C [address] [facility] [place],[address], [address], [place] - [facility] 09/26/2024 10:54:54 NasalEndoscopy_ DP completed LANDEN BUSTILLOS MD [address] [facility] [place],[address], [address], [place] - [facility] 06/14/2024 17:00:46 repair of aneurysm of abdominal aorta completed MILADIS MENDOZA MD [address] [facility] [place] AL[facility] [address] [place] [address], [address], [place] - [facility] [place] 01/10/2024 14:51:24 coronary artery bypass graft completed MILADIS MENDOZA MD [address] [facility] [place],[address], [address], [facility] - [facility] [place] 01/10/2024 14:51:33 placement of stent in cardiac conduit completed MILADIS MENDOZA MD [address] [facility] [place],[address], [address], [facility] - [facility] [place] 01/10/2024 14:51:41 Imaging Results None recorded. Procedure [...] mg capsule 06/14 completed Medicati on ID: [id number] B rand Name: tamsulos in Send Method: E-Prescr ibed Sub s Allowed: subs OK Medic ationGen ericName : tamsulos in Not Available Not Available Not Available amlodipin e 10 mg tablet 06/14 completed Medicati on ID: [id number] B rand Name: amlodipi ne Send Method: [...] Updated DateTime 10/11/2024 167.64 cm 26.5 kg/m2 27705.15 g Corin Ross [place] - [facility] 10/11/2024 08:59:21 Social History None recorded. Functional Status None recorded. Mental Status None recorded. Family History Nothing Reported. Medical History Condition Response Heart Problems Y Past Encounters Encounter ID Performer Location Encounter Start Date Encounter Closed Date Diagnosis/Indication Diagnosis SNOMED-CT Code Diagnosis ICD10 Code Diagnosis IMO Codes Diagnosis Note [id number] BROYN LOZOYA PA-C [facility] [address] [address] 09/26/2024 10:17:12 09/26/2024 10:53:11 Otomycosis 14058416 B36.9 H62.40 60372 Impacted c erumen in left ear 8169790085 049260 H61.22 [id number] BRYON LOZOYA PA-C [facility] [address] [address] 10/11/2024 08:45:48 10/11/2024 09:29:56 Otomycosis 17025848 B36.9 H62.40 15058 Bacterial otitis externa 6815249238 47981 H60.399 43120035 Health Concerns Section Related Observation LastModified by Organization Detai ls LastModified Time None Recorded Concern Status LastModified by Organization Details LastModified Time None Recorded Payers Encounter Date Sequence Insurance Name Policy Number Policy Cage Covered Member ID Cage Member ID Guarantor Name 10/11/2024 2 [place] [id number] Mario W Sowmya [id number] Mario W Sowmya 10/11/2024 1 [place] [employer] Mario W Sowmya [id number] 1 [place] Sowmya Notes Date Note Type Note Provider Name and Address Organization Details Recorded Time 10/11/2024 text/html ROS as noted in the HPI 74-year-old male presents for reevaluation of right otitis externa. Continues to have itching and sensation of swelling of the ear. He has been using clotrimazole and does not feel it has helped much. Culture was taken at last visit but unfortunately testing was not performed at the lab. MILADIS MENDOZA MD [address] [place] [address], [place], [address], [facility] - [facility] 10/11/2024 10:20:01
--- OUTSIDE RECORDS SUMMARY | 2025-01-11 12:55 | XMS_ITS | Continuity of Care Document ---
Author Organization [place] - [facility], [facility] Address [address] [place] [address] Care Team Providers Care Progressive Care Manager Name Role Phone AMANDARICHARDN Primary Care Provider [phone] Assessment Encounter Date Assessment Date Assessment LastModified by Organization Details LastModified Time 12/08/2024 12/08/2024 Ed W Sowmya is a 74-year-old male with recurrent nosebleeds [...] symptoms worsen or if bleeding becomes severe. [email or web address] Not available 12/08/2024 11:53:23 Plan of Treatment [...] By Organization Details Last Modified Time 12/08/2024 [id number] nosebleed information lamar Not available 12/08/2024 11:52:30 [...] if symptoms worsen or bleeding becomes severe. [email or web address] Not available 12/08/2024 11:51:34 Please note: Parts of this encounter note have been generated by AI based on audio conversation. Patient consent was required prior to utilizing this technology. Content review was required prior to finalizing the note. [email or web address] Not available 12/08/2024 11:51:34 Reason for Referral None Reported. Problems Name Problem SNOMED Code Status Onset Date Resolution Date Notes Provider Name and Address Organization Details Recorded Time Bleeding from nose 754048663 Active 2022 [facility] ; Note: Date Diagnosed : 09/21/2022 10:54 AM (R04.0) MILADIS NORWOOD MD [address] [place] [address],[place] [address], [place], [address] , [facility] 5 11:49:39 Sudden idiopathi c hearing loss 962087252 Active 2023 Sudden idiopathi c hearing loss, right ear; Note: Date Diagnosed : 03/31/2023 2:38 PM (H91.21) Not Available [facility] 4 02:57:20 Sensorine ural hearing loss of bilateral ears 826694317 Active 2023 Sensorine ural hearing loss, bilateral ; Note: Date Diagnosed : 03/31/2023 2:04 PM (H90.3) Not Available [facility] 4 02:57:22 Recurrent bleeding of nose Active 2024 LANDEN BUSTILLOS MD [address] [facility],[place] [address], [place], [address] , [place] - [facility] [place] 17:01:47 Otomycosi s 43422986 Active 2024 BRYON LOZOYA PA-C [address] [place], [place] [address]on [place] [address], [place], [address] , [place] - [facility] [place] 10:55:58 Impacted cerumen in left ear 73684974316 31331 Active 2024 BRYON LOZOYA PA-C [address] [place] [address],[place] [address], [place], [address] , [facility] - [facility] [place] 5 10:56:48 Bacterial otitis externa 43957749450 9107 Active 2024 BRYON LOZOYA PA-C [address] [place], [place] [address]on [place] [address], [facility] [place] [place], [address] , [facility] - [facility] [place] 10:18:36 Deviated nasal septum 224222954 Active 2024 MILADIS NORWOOD MD [address] [facility] [place] [address], [facility] [place] [place], [address] , [facility] - [facility] 11:49:55 Essential hypertens ion 44282041 Active 2024 MILADIS NORWOOD MD [address] [facility] [place] [address], [facility] [place], [address] , [facility] - [facility] 11:53:32 Problem Notes None recorded. Procedures Surgical History Date Name Laterality Status Provider Name and Address Organization Details Recorded Time JMSNasal/Sinus Endoscopy completed MILADIS MENDOZA MD [address] [facility] [place] [address], [place], [address], [facility] - [facility] [place] 12/08/2024 11:53:08 5 Cerumen removal without microscope left completed BRYON LOZOYA PA-C [address] [facility] [place],[address] ALICE [facility], [place], [address], [place] - [facility] 09/26/2024 10:54:54 5 NasalEndoscopy_ DP completed LANDEN BUSTILLOS MD [address] [facility],[address] AL[address] [facility], [place], [address], [place] - [facility] 06/14/2024 17:00:46 repair of aneurysm of abdominal aorta completed MILADIS MENDOZA MD [address] [facility],[address], [address], [place] - [facility] 01/10/2024 14:51:24 coronary artery bypass graft completed MILADIS MENDOZA MD [address] [facility] [place],[address], [address], [place] - [facility] 01/10/2024 14:51:33 placement of stent in cardiac conduit completed MILADIS MENDOZA MD [address] [facility],[address], [address], [facility] - [facility] 01/10/2024 14:51:41 Imaging Results None recorded. Procedure [...] mg capsule 06/14 completed Medicati on ID: [id number] B rand Name: tamsulos in Send Method: E-Prescr ibed Sub s Allowed: subs OK Medic ationGen ericName : tamsulos in Not Available Not Available Not Available amlodipin e 10 mg tablet 06/14 completed Medicati on ID: [id number] B rand Name: amlodipi ne Send Method: [...] 1 TABLET AT BEDTIME (CANCEL AND STOP TAMSULO SIN) active Not Available Not Available No t Available Vitals Date Recorded Body height Body mass index (BMI) Body weight Systolic And Diastolic Provider Name and Address Organization Details Last Updated DateTime 12/08/2024 167.64 cm 26.5 kg/m2 67984.15 g 130/78 mm[Hg] Leyda Whittington [place] - [facility] 12/08/2024 11:28:36 Social History None recorded. Functional Status None recorded. Mental Status None recorded. Family History Nothing Reported. Medical History Condition Response Heart Problems Y Past Encounters Encounter ID Performer Location Encounter Start Date Encounter Closed Date Diagnosis/Indication Diagnosis SNOMED-CT Code Diagnosis ICD10 Code Diagnosis IMO Codes Diagnosis Note [id number] BRYON LOZOYA PA-C [facility] [address] [address] 11/08/2024 11:21:17 11/08/2024 11:35:09 Bacterial otitis externa 2341913076 75482 H60.399 35044280 Otomycosis 55318522 B36. 9 H62.40 58160 [id number] MILADIS NORWOOD MD [facility] [address] [address] 12/08/2024 11:20:58 12/08/2024 11:53:36 Bleeding from nose 249870128 R04.0 Long-term current use of antiplatelet drug 9780410627 92528 Z79.02 Deviated nasal septum 12 8970324 J34.2 919174 Essential hypertension 30480851 I10 58133 Health Concerns Section Related Observation LastModified by Organization Detai ls LastModified Time None Recorded Concern Status LastModified by Organization Details LastModified Time None Recorded Payers Encounter Date Sequence Insurance Name Policy Number Policy Cage Covered Member ID Cage Member ID Guarantor Name 12/08/2024 2 [place] [id number] [place] [id number] [place] Maira Deng 12/08/2024 1 [place] B[place] [employer] [place] Maira Deng [id number] [place] Maira Deng Notes Date Note Type Note Provider Name and Address Organization Details Recorded Time 12/08/2024 text/html Carlos Deng is a 74-year-old male who presents [...] contribute to nasal dryness. MILADIS MENDOZA MD [address] [place] [address], [place], [address], [place] - [facility] 12/08/2024 11:53:55
--- OUTSIDE RECORDS SUMMARY | 2025-01-11 12:55 | XMS_ITS | Data Portability ---
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 All questions were answered. [email or web address] Not available 09/26/2024 10:55:47 10/11/2024 10/11/2024 74-year-old male presents for reevaluation of right otitis externa. Exam is consistent with mixed infection. Recommended application of Odo max which was performed today. He was instructed in dry ear precaution. Follow-up in 3 to 4 weeks for reevaluation. All questions were answered. [email or web address] Not available 10/11/2024 10:18:17 11/08/2024 11/08/2024 74-year-old male presents for reevaluation. On examination there is no further otorrhea or abnormal debris within the right EAC. TM normal to inspection. Follow-up in 6 months for cerumen removal. [email or web address] Not available 11/08/2024 13:18:16 12/08/2024 12/08/2024 Ed [...] Go To The Location Of Their Choice, [id number] 09/27/2024 11:17:01 fungus, culture, unspecifi ed specimen 2024 BRIAN [facility] (Centralized Electronic Ordering - All Locations), Patient Can Go To The Location Of Their Choice, [address] 09/27/2024 11:17:02 Referral None recorded. Procedures None recorded. Surgeries None recorded. Imaging None recorded. Medication Orders clotrimaz ole 1 % topical solution 2024 [facility]ANK[id number], [address], [place], [id number], 12/08/2024 11:24:52 Patient TargetsNo targets recorded. Patient Instructions Encounter Date Encounter Id Patient Instructions Last Modified By Organization Details Last Modified Time 12/08/2024 [id number] nosebleed information lamar Not available 12/08/2024 11:52:30 [...] TABLE FOR CULTU RE Not Available [facility] ([facility]) [address] [place], [address], 09/27/2024 11:17:01 09/27/19 25 09/27/2024 ANAER OBIC AND AEROB IC CULTU RE aerobic culture COMMEN T Test not perfo rmed. The requi red speci men for the test order ed was not recei dinorah. DRY SWAB NOT ACCEP TABLE FOR CULTU RE Not Available [facility] ([facility]) [address] [place], [address], 09/27/2024 11:17:01 09/27/19 25 09/27/2024 FUNGU S CULTU RE WITH STAIN fungus stain COMMEN T Test not perfo rmed. The requi red speci men for the test order ed was not recei dinorah. DRY SWAB NOT ACCEP TABLE FOR CULTU RE Not Available [facility] ([facility]) [address] [place], [address], 09/27/2024 11:17:02 09/27/19 25 09/27/2024 FUNGU S CULTU RE WITH STAIN fungus (mycology) culture COMMEN T Test not perfo rmed. The requi red speci men for the test order ed was not recei dinorah. DRY SWAB NOT ACCEP TABLE FOR CULTU RE Not Available [facility] ([facility]) [address] [place], [address], 09/27/2024 11:17:02 07/29/20 25 09/27/[address] PROBL EM request problem COMMEN T Test not perfo rmed. The requi red speci men for the test order ed was not recei dinorah. TEST: [id number] 3 Anaer obic and Aerob [place] Cultu [place] 85608 3 Fungu s Cultu re With Stain DRY SWAB NOT ACCEP TABLE FOR CULTU RE Not Available [facility] ([facility]) [address] [facility], [place], [address], 09/27/2024 11:17:03 Result Notes None recorded. Problems Name Problem SNOMED Code Status Onset Date Resolution Date Notes Provider Name and Address Organization Details Recorded Time Bleeding from nose 868441611 Active 2022 [facility] ; Note: Date Diagnosed : 09/21/2022 10:54 AM (R04.0) MILADIS NORWOOD MD 100 [facility],[place] [address], [place], [address] , [place] - [facility] 5 11:49:39 Sudden idiopathi c hearing loss 478963203 Active 2023 Sudden idiopathi c hearing loss, right ear; Note: Date Diagnosed : 03/31/2023 2:38 PM (H91.21) Not Available [facility] 4 02:57:20 Sensorine ural hearing loss of bilateral ears 794649923 Active 2023 Sensorine ural hearing loss, bilateral ; Note: Date Diagnosed : 03/31/2023 2:04 PM (H90.3) Not Available [facility] 4 02:57:22 Recurrent bleeding of nose Active 2024 LANDEN BUSTILLOS MD 100 [facility], [place], [address] , [place] - [facility] 5 17:01:47 Otomycosi s 77992421 Active 2024 BRYON LOZOYA PA-C [facility] [place],[address], [place], [address] , [place] - [facility] 5 10:55:58 Impacted cerumen in left ear 33669220098 63096 Active 2024 BRYON LOZOYA PA-C [address] [place] [address],[place] [address], [place], [address] , [facility] [place] 10:56:48 Bacterial otitis externa 04727922522 9107 Active 2024 BRYON LOZOYA PA-C [address] [place] [address],[place] [address], [place], [address] , [facility] - [facility] [place] 10:18:36 Deviated nasal septum 627218100 Active 2024 MILADIS NORWOOD MD [address] [place] [address],[place] [address], [place], [address] , [facility] - [facility] [place] 11:49:55 Essential hypertens ion 96714379 Active 2024 MILADIS NORWOOD MD [address] [place] [address],[place] [address], [place], [address] , [facility] - [facility] [place] 11:53:32 Problem Notes None recorded. Procedures Surgical History Date Name Laterality Status Provider Name and Address Organization Details Recorded Time JMSNasal/Sinus Endoscopy completed MILADIS MENDOZA MD [address] [place] [address],[address], [address], [facility] - [facility] 12/08/2024 11:53:08 5 Cerumen removal without microscope left completed BRYON LOZOYA PA-C [address] [place] [address],[address], [address], [facility] - [facility] [place] 09/26/2024 10:54:54 5 NasalEndoscopy_ DP completed LANDEN BUSTILLOS MD [address] [place] [address],[address], [address], [facility] - [facility] [place] 06/14/2024 17:00:46 repair of aneurysm of abdominal aorta completed MILADIS MENDOZA MD [address] [place] [address],[address], [address], [place] - [facility] [place] 01/10/2024 14:51:24 coronary artery bypass graft completed MILADIS MENDOZA MD 100 [facility],[address], [address], [place] - [facility] 01/10/2024 14:51:33 placement of stent in cardiac conduit completed MILADIS MENDOZA MD 100 [facility],[address], [address], [place] - [facility] 01/10/2024 14:51:41 Imaging Results None recorded. [...] mg capsule 06/14 completed Medicati on ID: [id number] B rand Name: tamsulos in Send Method: E-Prescr ibed Sub s Allowed: subs OK Medic ationGen ericName : tamsulos in Not Available Not Available Not Available amlodipin e 10 mg tablet 06/14 completed Medicati on ID: [id number] B rand Name: amlodipi ne Send Method: [...] Updated DateTime 06/14/2024 167.64 cm 27 kg/m2 20411.93 g Leyda Whittington [place] - [facility] 06/14/2024 13:59:34 Date Recorded Body height Body mass index (BMI) Body weight Provider Name and Address Organization Details Last Updated DateTime 09/26/2024 167.64 cm 26.5 kg/m2 32846.15 g Taylor Modi [place] - [facility] 09/26/2024 10:46:08 Date Recorded Body height Body mass index (BMI) Body weight Provider Name and Address Organization Details Last Updated DateTime 10/11/2024 167.64 cm 26.5 kg/m2 44587.15 g Corin Ross [place] - [facility] 10/11/2024 08:59:21 Date Recorded Body height Body mass index (BMI) Body weight Provider Name and Address Organization Details Last Updated DateTime 11/08/2024 167.64 cm 26.5 kg/m2 20877.15 g Corin Ross [place] - [facility] 11/08/2024 11:26:36 Date Recorded Body height Body mass index (BMI) Body weight Systolic And Diastolic Provider Name and Address Organization Details Last Updated DateTime 12/08/2024 167.64 cm 26.5 kg/m2 76395.15 g 130/78 mm[Hg] Leyda Whittington [place] - [facility] 12/08/2024 11:28:36 Social History None recorded. Functional Status None recorded. Mental Status None recorded. Family History Nothing Reported. Medical History Condition Response Heart Problems Y Past Encounters Encounter ID Performer Location Encounter Start Date Encounter Closed Date Diagnosis/Indication Diagnosis SNOMED-CT Code Diagnosis ICD10 Code Diagnosis IMO Codes Diagnosis Note [id number] MILADIS NORWOOD MD [facility] [address] [address] 01/10/2024 14:30:35 01/10/2024 14:58:50 Bleeding from nose 187509991 R04.0 Long-term current use of antiplatelet drug 6489301404 67351 Z79.02 [id number] BRYON LOZOYA PA-C [facility] [address] [address] 05/26/2024 14:56:30 05/26/2024 15:40:29 Bleeding from nose 412714910 R04.0 [id number] LANDEN BUSTILLOS MD [facility] [address] [address] 06/14/2024 13:51:51 06/14/2024 14:28:09 Recurrent bleeding of nose 6767278223 102 R04.0 [id number] BRYON LOZOYA PA-C [facility] [address] [address] 09/26/2024 10:17:12 09/26/2024 10:53:11 Otomycosis 95123563 B36.9 H62.40 34142 Impacted c erumen in left ear 2324568001 361947 H61.22 [id number] BRYON LOZOYA PA-C [facility] [address] [address] 10/11/2024 08:45:48 10/11/2024 09:29:56 Otomycosis 07252803 B36.9 H62.40 85449 Bacterial otitis externa 5329162525 34629 H60.399 [id number] BRYON LOZOYA PA-C [facility] [address] [address] 11/08/2024 11:21:17 11/08/2024 11:35:09 Bacterial otitis externa 6737779655 21882 H60.399 20492699 Otomycosis 33862661 B36. 9 H62.40 73096 [id number] MILADIS NORWOOD MD [facility] [address] [place] [address] 12/08/2024 11:20:58 12/08/2024 11:53:36 Bleeding from nose 567930054 R04.0 Long-term current use of antiplatelet drug 9929642357 62273 Z79.02 Deviated nasal septum 12 3396316 J34.2 913044 Essential hypertension 58627507 I10 09526 Health Concerns Section Related Observation LastModified by Organization Detai ls LastModified Time None Recorded Concern Status LastModified by Organization Details LastModified Time None Recorded Advance Directives Directive None Recorded Payers Insurance Date Sequence Insurance Name Policy Number Policy Cage Covered Member ID Cage Member ID Guarantor Name 12/08/2024 2 [place] [id number] [place] [id number] [place] 12/08/2024 1 [place] [id number] 1 [place] Notes Date Note Type Note [...] nasal cavity. Takes plavix LANDEN BUSTILLOS MD [address] [place] [address], [address], [facility] - [facility] 06/14/2024 17:02:17 09/26/2024 text/html ROS as noted in the HPI 74-year-old male presents for evaluation of itchy right ear. The ear has been itchy for several weeks and he admits to using his finger and Q-tips to itch. No drainage or pain. EDWARD RAFAEL, MD 100 [facility],[place] [address], [place], [address], [facility] 09/27/2024 17:01:19 10/11/2024 text/html ROS as noted in the [facility] 74-year-old male presents for reevaluation of right otitis externa. Continues to have itching and sensation of swelling of the ear. He has been using clotrimazole and does not feel it has helped much. Culture was taken at last visit but unfortunately testing was not performed at the lab. MILADIS MENDOZA MD [address] [facility],[place] [address], [place], [address], [facility] 10/11/2024 10:20:01 11/08/2024 text/html ROS as noted in the [facility] 74-year-old male presents for reevaluation of otitis externa. Previously treated for mixed infection with Otomax. He feels completely improved without any fullness or itching. WOODY FINLEY MD [address] [facility],[place] [address], [place], [address], [facility] 11/08/2024 17:38:35 12/08/2024 text/html Ed Maira [...] to nasal dryness. MILADIS MENDOZA MD 100 [facility] [place],[facility] 100, [place], [address], [facility] - [facility] 12/08/2024 11:53:55
--- OUTSIDE RECORDS SUMMARY | 2025-01-11 12:55 | XMS_ITS | Continuity of Care Document ---
Author Organization [place] - [facility], [facility] Address [address] [place] [address] Care Team Providers Care Sr. Payroll Manager Name Role Phone ROSENDO PATEL Primary Care Provider Assessment Encounter Date Assessment Date Assessment LastModified by Organization Details LastModified Time 11/08/2024 11/08/2024 74-year-old male presents for reevaluation. On examination there is no further otorrhea or abnormal debris within the right EAC. TM normal to inspection. Follow-up in 6 months for cerumen removal. [email or web address] Not available 11/08/2024 13:18:16 Plan of Treatment Reminders Order Date Submit [...] instructions recorded. Reason for Referral None Reported. Problems Name Problem SNOMED Code Status Onset Date Resolution Date Notes Provider Name and Address Organization Details Recorded Time Bleeding from nose 540104657 Active 2022 [facility] ; Note: Date Diagnosed : 09/21/2022 10:54 AM (R04.0) MILADIS NORWOOD MD [address] [place] [address], [facility] [place], [address] , [place] - [facility] 11:49:39 Sudden idiopathi c hearing loss 097711718 Active 2023 Sudden idiopathi c hearing loss, right ear; Note: Date Diagnosed : 03/31/2023 2:38 PM (H91.21) Not Available [facility] 4 02:57:20 Sensorine ural hearing loss of bilateral ears 677309733 Active 2023 Sensorine ural hearing loss, bilateral ; Note: Date Diagnosed : 03/31/2023 2:04 PM (H90.3) Not Available [facility] 4 02:57:22 Recurrent bleeding of nose Active 2024 LANDEN BUSTILLOS MD [address], [place], [place], [address] , [facility] - [facility] [place] 5 17:01:47 Otomycosi s 52179762 Active 2024 BRYON LOZOYA PA-C [address], [place], [address] , [facility] - [facility] [place] 10:55:58 Impacted cerumen in left ear 23631039140 82419 Active 2024 BRYON LOZOYA PA-C [address], [place], [place], [address] , [facility] - [facility] [place] 10:56:48 Bacterial otitis externa 12272062555 9107 Active 2024 BRYON LOZOYA PA-C [address], [place], [place], [address] , [place] - [facility] [place] 10:18:36 Deviated nasal septum 840053472 Active 2024 MILADIS NORWOOD MD [address], [place], [address] , [facility] - [facility] [place] 11:49:55 Essential hypertens ion 62082497 Active 2024 MILADIS NORWOOD MD [address], [place], [address] , [place] [facility] [place] 11:53:32 Problem Notes None recorded. Procedures Surgical History Date Name Laterality Status Provider Name and Address Organization Details Recorded Time 5 JMSNasal/Sinus Endoscopy completed MILADIS MENDOZA MD [facility] [place], [place], [address], [facility] - [facility] 12/08/2024 11:53:08 5 Cerumen removal without microscope left completed BRYON LOZOYA PA-C [address] [facility] [place] [address] [place] [address], [address], [place] - [facility] 09/26/2024 10:54:54 5 NasalEndoscopy_ DP completed LANDEN BUSTILLOS MD [address] [facility] [place] [facility] [place], [address], [place] [facility] 06/14/2024 17:00:46 repair of aneurysm of abdominal aorta completed MILADIS MENDOZA MD [address] [facility] [place] [address] [place] [address], [address], [facility] - [facility] 01/10/2024 14:51:24 coronary artery bypass graft completed MILADIS MENDOZA MD [address] [facility] [place] [address] [place] [address], [address], [facility] - [facility] 01/10/2024 14:51:33 placement of stent in cardiac conduit completed MILADIS MENDOZA MD [address] [facility] [place] [address] [place] [address], [address], [facility] - [facility] 01/10/2024 14:51:41 Imaging Results None recorded. [...] mg capsule 06/14 completed Medicati on ID: [id number] B rand Name: tamsulos in Send Method: E-Prescr ibed Sub s Allowed: subs OK Medic ationGen ericName : tamsulos in Not Available Not Available Not Available amlodipin e 10 mg tablet 06/14 completed Medicati on ID: [id number] B rand Name: amlodipi ne Send Method: [...] Updated DateTime 11/08/2024 167.64 cm 26.5 kg/m2 44555.15 g Corin Ross [place] - [facility] 11/08/2024 11:26:36 Social History None recorded. Functional Status None recorded. Mental Status None recorded. Family History Nothing Reported. Medical History Condition Response Heart Problems Y Past Encounters Encounter ID Performer Location Encounter Start Date Encounter Closed Date Diagnosis/Indication Diagnosis SNOMED-CT Code Diagnosis ICD10 Code Diagnosis IMO Codes Diagnosis Note [id number] BRYON LOZOYA PA-C [facility] [address] [place] [address] 10/11/2024 08:45:48 10/11/2024 09:29:56 Otomycosis 26888170 B36.9 H62.40 94475 Bacterial otitis externa 3365759053 29879 H60.399 [id number] BRYON LOZOYA PA-C [facility] 100 [place] [address] 11/08/2024 11:21:17 11/08/2024 11:35:09 Bacterial otitis externa 5607044859 61385 H60.399 00386369 Otomycosis 25561805 B36. 9 H62.40 19610 Health Concerns Section Related Observation LastModified by Organization Detai ls LastModified Time None Recorded Concern Status LastModified by Organization Details LastModified Time None Recorded Payers Encounter Date Sequence Insurance Name Policy Number Policy Cage Covered Member ID Cage Member ID Guarantor Name 11/08/2024 2 [place] [id number] [place] W [place] [id number] [place] W [place]ow[place]a 11/08/2024 1 [place] [id number] 1 [place] Notes Date Note Type Note Provider Name and Address Organization Details Recorded Time 11/08/2024 text/html ROS as noted in the HPI 74-year-old male presents for reevaluation of otitis externa. Previously treated for mixed infection with Otomax. He feels completely improved without any fullness or itching. WOODY FINLEY MD [address] [place] [address], [place], [address], [facility] - [facility] 11/08/2024 17:38:35
== END 2025-01-11 10:33 | disposition home or self-care (01) ==
LOC: HO.LNP 10:32
PROVIDERS: Visit Provider Internal Medicine
DX: E61.1 Iron deficiency (principal)
CPT/HCPCS: 83540; 85025